=== PATIENT | male | born 1955 | race Caucasian/White ===

== ENCOUNTER 2021-11-26 18:44 | Inpatient (IN) | payer MEDICARE, OTHER ==
[2021-11-26] MEDS ORDERED: ASPIRIN 325 MG TAB PO STA (19:41)
[2021-11-26] MEDS ORDERED: SODIUM CHLORIDE 0.9% 1,000 ML IV ONE (19:41)
[2021-11-26] MEDS ORDERED: ATORVASTATIN 80 MG TAB PO STA (19:41)
[2021-11-26] MEDS ORDERED: HEPARIN SODIUM 1,000 UN/ML (10ML VL) IV ONE (19:42)
[2021-11-26] MEDS ORDERED: NALOXONE 0.4 MG/ML 1 ML VIAL IV PRN (19:42)
--- NOTE | 2021-11-26 19:46 | ED ---
General Adult HPI - General Chief complaint: Chest Pain Stated complaint: Chest pain Time Seen by Provider: 11/26/21 19:31 Source: patient, RN notes reviewed, old records reviewed Mode of arrival: wheelchair Limitations: no limitations - History of Present Illness Initial comments: 65-year-old male history of diabetes presenting for evaluation of intermittent chest pain over the past 24 hours. Patient has no prior history of coronary artery disease. He has had diaphoresis. No significant vomiting. No abdominal pain. Pain is substernal. - Related Data Allergies Allergy/AdvReac Type Severity Reaction Status Date / Time No Known Allergies Allergy Verified 11/26/21 19:28 Review of Systems ROS Statement: Those systems with pertinent positive or pertinent negative responses have been documented in the HPI. ROS Other: All systems not noted in ROS Statement are negative. Past Medical History Past Medical History: Diabetes Mellitus, Hyperlipidemia, Hypertension History of Any Multi-Drug Resistant Organisms: None Reported Additional Past Surgical History / Comment(s): kidney stone surgery Past Psychological History: No Psychological Hx Reported Smoking Status: Former smoker Past Alcohol Use History: None Reported Past Drug Use History: None Reported General Exam Limitations: no limitations General appearance: alert, in no apparent distress Head exam: Present: atraumatic, normocephalic Eye exam: Present: normal appearance, PERRL ENT exam: Present: normal exam Neck exam: Present: normal inspection. Absent: tenderness, meningismus Respiratory exam: Present: normal lung sounds bilaterally. Absent: respiratory distress, wheezes Cardiovascular Exam: Present: regular rate, normal rhythm GI/Abdominal exam: Present: soft. Absent: distended, tenderness, guarding Extremities exam: Present: pedal edema Neurological exam: Present: alert, oriented X3, CN II-XII intact. Absent: motor sensory deficit Psychiatric exam: Present: normal affect, normal mood Skin exam: Present: warm, diaphoretic Course Vital Signs 11/26/21 19:23 Temperature 98 F Pulse Rate 104 H Respiratory 18 Rate Blood Pressure 86/58 O2 Sat by Pulse 95 Oximetry EKG Findings - EKG Comments: EKG Findings:: EKG obtained at 193, sinus tachycardia, ST segment elevation in the inferior leads with reciprocal change, rate of 104, LA interval 152, QRS duration 108, QTC 420 Medical Decision Making - Medical Decision Making 65-year-old male presenting with intermittent chest pain over the past 24 hours. EKG obtained at 1935 [address] [place] with ST segment elevation in II, III, and F aVF with reciprocal change. lab asst is immediately activated and I did discuss case with Dr. Machado. He is given aspirin, heparin, Lipitor and 1 L of IV fluids. Laboratory testing and x-ray are pending. He will be taken urgently to the [facility]. Critical Care Time Critical Care Time: Yes Total Critical Care Time: 35 Disposition Clinical Impression: ST elevation myocardial infarction (STEMI) Disposition: ADMITTED IP TO THIS HOSP Condition: Serious Is patient prescribed a controlled substance at d/c from ED?: No Referrals: Nonstaff,Physician [Primary Care Provider] - 1-2 days Time of Disposition: 19:43
[2021-11-26 19:58] LABS: Basophils % (A) 1 %; Eosinophils # (A) 0.1 k/uL (0-0.7); Eosinophils % (A) 2 %; HGB 15.7 gm/dL (13.0-17.5); Lymphocytes # (A) 1.6 k/uL (1.0-4.8); Lymphocytes % (A) 22 %; MCH 28.8 pg (25.0-35.0); MCHC 32.1 g/dL (31.0-37.0); MCV 89.8 fL (80.0-100.0); Mean Platelet Volume 8.8; Monocytes # (A) 0.7 k/uL (0-1.0); Monocytes % (A) 10 %; Neutrophils # (A) 4.6 k/uL (1.3-7.7); Neutrophils % (A) 62 %; Platelet Count 270 k/uL (150-450); RBC 5.45 m/uL (4.30-5.90); WBC 7.3 k/uL (3.8-10.6)
[2021-11-26] MEDS: NOREPINEPHRINE 4 MG in SODIUM CHLORIDE 0.9% 250 ML IV SCH (19:58)
[2021-11-26 20:07] LABS: Albumin 4.3 g/dL (3.5-5.0); Calcium 9.1 mg/dL (8.4-10.2); Magnesium 2.1 mg/dL (1.6-2.3); Potassium 3.6 mmol/L (3.5-5.1); Total Bilirubin 0.8 mg/dL (0.2-1.3); Total Protein 6.9 g/dL (6.3-8.2)
--- NOTE | 2021-11-26 20:07 | XR ---
EXAMINATION TYPE: XR chest 1V portable DATE OF EXAM: 11/26/2021 COMPARISON: NONE HISTORY: Pain TECHNIQUE: Single view FINDINGS: There is no heart failure nor confluent pneumonic infiltrate. Costophrenic angles are clear . There are chest leads. IMPRESSION: No active cardiopulmonary disease.
[2021-11-26] MEDS ORDERED: VERAPAMIL 2.5 MG/ML 2 ML AMP ONE (20:10)
[2021-11-26] MEDS ORDERED: IV FLUID CONTINUATION 700 ML IV ONE (20:10)
--- NOTE | 2021-11-26 20:13 | P.CRDCN ---
History of Present Illness History of present illness: HISTORY OF PRESENTING ILLNESS Patient is a pleasant 65-year-old male with a history of diabetes mellitus type 2, hypertension, hyperlipidemia who presents secondary to off and on chest pain with some nausea over lasts 24 hours. He had first thought this was related to heartburn and took some Tums without any significant change and therefore eventually came to emergency department. He does admit to some diaphoresis however no significant shortness breath. Chest pain is substernal. He has never had any cardiac history in the past. EKG shows sinus rhythm with ST elevation in the inferior leads with reciprocal changes. Blood work shows hemoglobin 15.7, creatinine 1.8, troponin pending. Patient was noted to be hypotensive 86/58 on presentation however improved to 106/70 after IV fluids. REVIEW OF SYSTEMS At the time of my exam: CONSTITUTIONAL: Denies fever or chills. CARDIOVASCULAR: +chest pain, no shortness of breath, orthopnea, PND or palpitations. RESPIRATORY: Denies cough. GASTROINTESTINAL: Denies abdominal pain, diarrhea, constipation, +nausea, no vomiting. MUSCULOSKELETAL: Denies myalgias. NEUROLOGIC: Denies numbness, tingling or weakness. ENDOCRINE: Denies fatigue, weight change, polydipsia or polyurina. GENITOURINARY: Denies burning, hematuria or urgency with micturation. HEMATOLOGIC: Denies history of anemia or bleeding. PHYSICAL EXAMINATION Vital signs reviewed. CONSTITUTIONAL: Obese, mild distress. HEENT: Head is normocephalic. Pupils are equal, round. Sclerae anicteric. Mucous membranes of the mouth are moist. No JVD. No carotid bruit. CHEST EXAMINATION: Lungs are clear to auscultation. No chest wall tenderness is noted on palpation or with deep breathing. HEART EXAMINATION: Regular rate and rhythm. S1, S2 heard. No murmurs, gallops or rub. ABDOMEN: Soft, nontender. Positive bowel sounds. EXTREMITIES: 2+ peripheral pulses, no lower extremity edema and no calf tenderness. NEUROLOGIC EXAMINATION: Patient is awake, alert and oriented x3. ASSESSMENT 1. Inferior STEMI 2. Diabetes mellitus type 2 3. Hypertension 4. Hyperlipidemia 5. Chronic kidney disease 6. Hypotension, cardiogenic shock improved with IV fluids PLAN Discussed recommendations for emergency heart catheterization and patient is agreeable. Aspirin, heparin, hold beta wenceslao given hypotension, IV fluid hydration. Check 2-D echo. Further recommendations to follow. Past Medical History Past Medical History: Diabetes Mellitus, Hyperlipidemia, Hypertension History of Any Multi-Drug Resistant Organisms: None Reported Additional Past Surgical History / Comment(s): kidney stone surgery Past Psychological History: No Psychological Hx Reported Smoking Status: Former smoker Past Alcohol Use History: None Reported Past Drug Use History: None Reported Medications and Allergies Home Medications Medication Instructions Recorded Confirmed Type Aspirin EC [Ecotrin Low Dose] 81 mg PO DAILY 11/26/21 11/26/21 History Atorvastatin [Lipitor] 40 mg PO HS 11/26/21 11/26/21 History Dulaglutide [Trulicity] 3 mg SQ MO 11/26/21 11/26/21 History Empagliflozin [Jardiance] 10 mg PO DAILY 11/26/21 11/26/21 History Fenofibrate,Micronized 200 mg PO HS 11/26/21 11/26/21 History Insulin Lispro Protamin/Lispro 30 units SQ AC-BRKFST 11/26/21 11/26/21 History [humaLOG Mix 50-50 Kwikpen] Insulin Lispro Protamin/Lispro 54 units SQ AC-SUPPER 11/26/21 11/26/21 History [humaLOG Mix 50-50 Kwikpen] Losartan-Hctz 50-12.5 mg [Hyzaar 1 tab PO DAILY 11/26/21 11/26/21 History 50-12.5] Pioglitazone [Actos] 30 mg PO DAILY 11/26/21 11/26/21 History metFORMIN HCL ER [Glucophage XR] 500 mg PO BID 11/26/21 11/26/21 History Allergies Allergy/AdvReac Type Severity Reaction Status Date / Time No Known Allergies Allergy Verified 11/26/21 20:03 Physical Exam Vitals: Vital Signs Temp Pulse Resp BP Pulse Ox 11/26/21 20:03 98.0 F 101 H 20 106/70 95 11/26/21 19:50 101 H 20 86/58 93 L 11/26/21 19:23 98 F 104 H 18 86/58 95 Intake and Output 11/26/21 11/26/21 11/26/21 06:59 14:59 22:59 Other: Weight 140.614 kg Results 11/26/21 19:45 11/26/21 19:45 Cardiac Enzymes 11/26/21 Range/Units 19:45 AST 32 (17-59) U/L CBC 11/26/21 Range/Units 19:45 WBC 7.3 (3.8-10.6) k/uL RBC 5.45 (4.30-5.90) m/uL Hgb 15.7 (13.0-17.5) gm/dL Hct 49.0 (39.0-53.0) % Plt Count 270 (150-450) k/uL Comprehensive Metabolic Panel 11/26/21 Range/Units 19:45 Sodium 141 (137-145) mmol/L Potassium 3.6 (3.5-5.1) mmol/L Chloride 106 (98-107) mmol/L Carbon Dioxide 27 (22-30) mmol/L BUN 26 H (9-20) mg/dL Creatinine 1.80 H (0.66-1.25) mg/dL Glucose 111 H (74-99) mg/dL Calcium 9.1 (8.4-10.2) mg/dL AST 32 (17-59) U/L ALT 29 (4-49) U/L Alkaline Phosphatase 57 (38-126) U/L Total Protein 6.9 (6.3-8.2) g/dL Albumin 4.3 (3.5-5.0) g/dL Current Medications Generic Name Dose Route Start Last Admin Trade Name Freq PRN Reason Stop Dose Admin Sodium Chloride 1,000 mls @ 999 mls/hr 11/26/21 19:41 11/26/21 19:46 Saline 0.9% IV 11/26/21 20:41 999 mls/hr .Q1H1M ONE Administration Norepinephrine Bitartrate 4 mg 254 mls @ 26.787 mls/hr 11/26/21 20:00 11/26/21 19:58 / Sodium Chloride IV 0.05 mcg/kg/min .Q9H29M SHIRLEY 26.787 mls/hr Administration Protocol 0.05 MCG/KG/MIN Naloxone HCl 0.2 mg 11/26/21 19:42 Naloxone 0.4 Mg/Ml 1 Ml Vial IV Q2M PRN Opioid Reversal Intake and Output 11/26/21 11/26/21 11/26/21 06:59 14:59 22:59 Other: Weight 140.614 kg Patient Weight 11/27/21 06:59 Weight 140.614 kg 11/26/21 19:45 11/26/21 19:45
[2021-11-26 20:15] LABS: Prothrombin Time 10.8 sec (9.0-12.0)
[2021-11-26] MEDS ORDERED: TICAGRELOR 90 MG TAB ONE (20:17)
[2021-11-26] MEDS ORDERED: LIDOCAINE 1% PF 10 MG/ML (5 ML AMP) SQ ONE (20:19)
[2021-11-26] MEDS ORDERED: VERAPAMIL SYRINGE (5 MG/10 ML) INTRAARTER ONE (20:21)
[2021-11-26] MEDS ORDERED: MIDAZOLAM 2 MG/2 ML VIAL IV ONE (20:23)
[2021-11-26] MEDS ORDERED: HEPARIN SODIUM 1,000 UN/ML (10ML VL) ONE (20:26)
[2021-11-26] MEDS ORDERED: TICAGRELOR 90 MG TAB PO ONE (20:31)
[2021-11-26] MEDS ORDERED: IOPAMIDOL-370 125ML BTL INJ ONE (20:52)
[2021-11-26 21:16] LABS: Glucose,Whole Blood 120 mg/dL (75-99)
--- NOTE | 2021-11-26 21:17 | P.PRCINT ---
Percutaneous Coronary Int. - Percutaneous Coronary Intervention Percutaneous Coronary Intervention: PROCEDURES PERFORMED: Bilateral coronary angiography, PCI proximal RCA with 3.5 x 18 mm Xience VICENTE, postdilated proximal portion with a 4.5 x 12 NC balloon INDICATION: Inferior STEMI, cardiogenic shock, diabetes mellitus type 2, chronic kidney disease HPI: Patient is pleasant 65-year-old male with history of hypertension, diabetes mellitus type 2 who presented for chest pain over the last 24 hours as found to have inferior ST elevation. He was noted to be hypotensive with blood pressures in the 80s over 50s and given IV fluid hydration and was placed on vasopressors. CONSENT:I have discussed the risks, benefits and alternative therapies for the above-mentioned procedure and for both sedation/analgesia as well as necessary blood product administration, if indicated, as they pertain to this patient. The patient has indicated understanding and acceptance of the risks and procedures discussed. PROCEDURE: After the risks, benefits and alternatives of the above mentioned procedure explained in detail with the patient, informed consent was obtained. Patient was taken to the catheterization lab and prepped and draped in usual fashion. 1% lidocaine was used to anesthetize the right radial artery. A 6- Syriac sheath was placed in the right radial artery using modified Seldinger technique. Right coronary angiography was performed with a 6-Syriac FR4 catheter. The decision was made to perform PCI of the RCA. A 0.014 BMW wire was advanced into the distal RCA. The lesion was predilated with a 2.5 x 12 mm balloon. Next a 3.5 x 18 mm Xience VICENTE was placed in the proximal RCA. The proximal portion of the stent was postdilated with a 4.5 noncompliant balloon given discrepancy in size of artery narrowing from 4.5-3.5 vessel. There was a more distal 60-70% RCA lesion however given contrast threshold and excellent flow no intervention of this lesion was performed at this time. The wire was pulled and final angiograms were performed. Preintervention there was NEHEMIAS 0 flow and 100% stenosis, postintervention there was NEHEMIAS 3 flow and 0% stenosis. Left coronary angiography was performed with a 5-Syriac JL 3.5 catheter and right coronary angiography was performed with a 5-Syriac JR5 catheter in various views. The right radial sheath was removed and a TR band was placed with hemostasis achieved. The patient tolerated the procedure well. Patient was transported back to the post catheterization holding area in stable condition. Conscious Sedation: Patient was monitored under the direct supervision of vision of myself for conscious sedation using Versed and fentanyl for a total duration of 36 minutes HEMODYNAMICS: Aortic: 84/56 SELECTIVE CORONARY ARTERIOGRAPHY: LEFT MAIN: The left main is a large caliber vessel which bifurcates into the LAD and circumflex. There is no significant stenosis. LEFT ANTERIOR DESCENDING CORONARY ARTERY: LAD is a large caliber vessel which wraps around to the apex. There is diffuse proximal mid LAD 30-50% stenosis. There is a very high diagonal 1 branch which is small to moderate caliber with a 50% proximal stenosis. The mid LAD has diffuse 30-40% stenosis. Diagonal 2 has diffuse 30-40% stenosis. LEFT CIRCUMFLEX CORONARY ARTERY: Left circumflex is a moderate caliber vessel. There is mild disease of the proximal circumflex. OM1 is moderate caliber and has a proximal 80% stenosis. The distal circumflex is a small caliber vessel with diffuse 30-50% stenosis and gives rise to an AV branch. RIGHT CORONARY ARTERY: The right coronary artery is a large caliber vessel which gives off a PDA and PLV branch and is the dominant vessel. There is 100% proximal RCA stenosis and a mid 30% then a mid 60-70% RCA stenosis. FINAL IMPRESSION: 1. CAD as described above including 100% proximal RCA stenosis, mid RCA 60-70% stenosis, LAD 30-50% stenosis, OM1 80% stenosis. 2. S/p successful PCI proximal RCA with 3.5 x 18 mm Xience VICENTE, postdilated proximal portion with a 4.5 x 12 NC balloon PLAN: 1. Aggressive risk factor modification per most recent ACC/AHA guidelines. 2. Continue total antiplatelets with aspirin and Brillinta for 12 months. 3. Recommend staged PCI of OM1 and possible further assessment of LAD if creatinine remains stable. 4. IV fluids, supportive care, vasopressors as needed.
[2021-11-26] MEDS ORDERED: RX INFO: IV CONTRAST WAS GIVEN 1 EACH MISC MISCELLANE PRN (21:18)
[2021-11-26] MEDS ORDERED: NITROGLYCERIN SL TABS 0.4 MG TAB SUBLINGUAL PRN (22:00)
[2021-11-26] MEDS ORDERED: ATROPINE SULFATE 0.1 MG/ML 10ML SYRINGE IV PRN (22:00)
[2021-11-26] MEDS: SODIUM CHLORIDE 0.9% 1,000 ML in EMPTY BAG 1 BAG IV SCH (22:26)
[2021-11-27] MEDS ORDERED: MAG HYDROX/AL HYDROX/SIMETH 30 ML CUP PO PRN
[2021-11-27] MEDS: ZOLPIDEM 5 MG TAB PO PRN ×2 (01:19→20:01)
--- NOTE | 2021-11-27 01:42 | P.HPIM ---
History of Present Illness H&P Date: 11/26/21 Patient is a 65-year-old male with a PMH of type II DM, hypertension, hyperlipidemia, chronic kidney disease who had presented to the emergency room with complaints of chest discomfort, nausea, and diaphoresis. In the emergency room, EKG revealed ST elevations in the inferior leads. Code STEMI was activated and the patient was taken to the [facility] where a cardiac catheterization had revealed 100% proximal RCA stenosis, 60-70% mid RCA stenosis, 80% OM1 stenosis. A successful PCI to the proximal RCA was performed. The patient was seen postoperatively in the medical ICU. He reported feeling at his baseline at the time of interview. Denied expressing any additional chest discomfort or shortness of breath. Also denied any additional complaints. Laboratory evaluation from the emergency room was reviewed with creatinine 1.80 (previously 1.4 in 2015) with troponin 0.322. Review of systems: Pertinent positives and negatives as discussed in HPI, a complete review of systems was performed and all other systems are negative. Physical examination: General: non toxic, no distress, appears at stated age, morbidly obese Derm: no unusual rashes/lesions no unusual ecchymoses, warm, dry Head: atraumatic, normocephalic, symmetric Eyes: EOMI, no lid lag, anicteric sclera, pupils equal round reactive to light ENT: Nose and ears atraumatic, no thrush, no pharyngeal erythema Neck: No thyromegaly, no cervical lymphadenopathy, trachea midline, supple Mouth: no lip lesion, mucus membranes moist Cardiovascular: S1S2 reg, no murmur, positive posterior tibial pulse bilateral, no edema, capillary refill less than 2 seconds Lungs: CTA bilateral, no rhonchi, no rales , no accessory muscle use Abdominal: soft, nontender to palpation, no guarding, no appreciable organomegaly, normal bowel sounds Ext: no gross muscle atrophy, muscle strength 5 out of 5 in all 4 extremities grossly, no contractures, Neuro: CN II-XI grossly intact, light touch intact all 4 extremities, finger to nose within normal limits, Psych: Alert, oriented, appropriate affect Assessment/plan Inferior ST elevation IA status post PCI to proximal RCA -Management as per cardiology service -Patient currently on Aspirin, Lipitor, Brilinta ESEQUIEL on chronic kidney disease -Hold patient's diuretic and losartan in light of borderline BP Chronic conditions: Type II DM, hypertension, hyperlipidemia, chronic kidney di sease -Insulin sliding scale -Continue remaining home medications DVT prophylaxis -Heparin subq The patient is admitted with an anticipated greater than 2 midnight stay for evaluation of STEMI CODE STATUS: Full Code Discussed with: Patient Anticipated discharge date: 11/[address]: Home Past Medical History Past Medical History: Diabetes Mellitus, Hyperlipidemia, Hypertension History of Any Multi-Drug Resistant Organisms: None Reported Past Surgical History: Orthopedic Surgery, Tonsillectomy Additional Past Surgical History / Comment(s): kidney stone surgery x2, hemrrhoid surgery, right elbow surgery Past Anesthesia/Blood Transfusion Reactions: No Reported Reaction Past Psychological History: No Psychological Hx Reported Smoking Status: Former smoker Past Alcohol Use History: None Reported Past Drug Use History: None Reported - Past Family History Father Family Medical History: CVA/TIA, Dementia Additional Family Medical History / Comment(s): passed way at 63 Mother Family Medical History: Congestive Heart Failure (CHF) Additional Family Medical History / Comment(s): at 96 from covid and chf Medications and Allergies Home Medications Medication Instructions Recorded Confirmed Type Aspirin EC [Ecotrin Low Dose] 81 mg PO DAILY 11/26/21 11/26/21 History Atorvastatin [Lipitor] 40 mg PO HS 11/26/21 11/26/21 History Dulaglutide [Trulicity] 3 mg SQ MO 11/26/21 11/26/21 History Empagliflozin [Jardiance] 10 mg PO DAILY 11/26/21 11/26/21 History Fenofibrate,Micronized 200 mg PO HS 11/26/21 11/26/21 History Insulin Lispro Protamin/Lispro 30 units SQ AC-BRKFST 11/26/21 11/26/21 History [humaLOG Mix 50-50 Kwikpen] Insulin Lispro Protamin/Lispro 54 units SQ AC-SUPPER 11/26/21 11/26/21 History [humaLOG Mix 50-50 Kwikpen] Losartan-Hctz 50-12.5 mg [Hyzaar 1 tab PO DAILY 11/26/21 11/26/21 History 50-12.5] Pioglitazone [Actos] 30 mg PO DAILY 11/26/21 11/26/21 History metFORMIN HCL ER [Glucophage XR] 500 mg PO BID 11/26/21 11/26/21 History Allergies Allergy/AdvReac Type Severity Reaction Status Date / Time No Known Allergies Allergy Verified 11/26/21 20:03 Physical Exam Vitals: Vital Signs Temp Pulse Resp BP BP Pulse Ox 11/26/21 23:00 115 H 18 107/73 97 11/26/21 22:45 112 H 15 139/86 96 11/26/21 22:30 103 H 21 142/87 96 11/26/21 22:15 102 H 15 140/85 96 11/26/21 22:00 104 H 15 138/80 97 11/26/21 21:45 100 14 130/80 96 11/26/21 21:30 96 12 135/83 97 11/26/21 20:29 97.6 F 12 140/85 97 11/26/21 20:03 98.0 F 101 H 20 106/70 95 11/26/21 19:50 101 H 20 86/58 93 L 11/26/21 19:23 98 F 104 H 18 86/58 95 Intake and Output 11/26/21 11/26/21 11/27/21 14:59 22:59 06:59 Intake Total 668.306 580 Output Total 225 Balance 668.306 355 Intake: IV 600 100 Sodium Chloride 0.9% 1, 200 100 000 ml In Empty Bag 1 bag @ 1 ML/KG/HR 140.614 mls /hr IV .Q7H7M SHIRLEY Rx#: [id number] Intake, IV Titration 68.306 Amount Norepinephrine 4 mg In 68.306 Sodium Chloride 0.9% 250 ml @ 0.05 MCG/KG/MIN 26. 787 mls/hr IV .Q9H29M SHIRLEY Rx#:[id number] Oral 480 Output: Urine 225 Other: # Voids 0 1 Weight 144 kg Results CBC & Chem 7: 11/26/21 19:45 11/26/21 19:45 Labs: Abnormal Lab Results - Last 24 Hours (Table) 11/26/21 11/26/21 11/26/21 Range/Units 19:45 19:45 21:14 BUN 26 H (9-20) mg/dL Creatinine 1.80 H (0.66-1.25) mg/dL Glucose 111 H (74-99) mg/dL POC Glucose (mg/dL) 120 H (75-99) mg/dL Troponin I 0.322 H* (0.000-0.034) ng/mL Thrombosis Risk Factor Assmnt - Choose All That Apply Any of the Below Risk Factors Present?: Yes Each Factor Represents 1 point: Acute IA, Obesity (BMI >25) Each Risk Factor Represents 2 Points: Age 61-74 years Thrombosis Risk Factor Assessment Total Risk Factor Score: 4 Thrombosis Risk Factor Assessment Level: Moderate Risk
[2021-11-27] MEDS: SODIUM CHLORIDE 0.9% 1,000 ML in EMPTY BAG 1 BAG IV SCH ×2 (06:42→12:48)
[2021-11-27] MEDS: NOREPINEPHRINE 4 MG in SODIUM CHLORIDE 0.9% 250 ML IV SCH ×2 (09:36→12:57)
[2021-11-27] MEDS: INSULIN ASPART (NovoLOG) 100 UNIT/ML VIAL SQ SCH ×4 (09:36→20:30)
[2021-11-27] MEDS: TICAGRELOR 90 MG TAB PO SCH ×2 (09:41→20:00)
[2021-11-27] MEDS: HEPARIN SODIUM,PORCINE/PF 5,000 UNIT/0.5 ML SYRINGE SQ SCH ×3 (09:41→23:09)
[2021-11-27] MEDS: ASPIRIN 81 MG PO SCH (09:41)
[2021-11-27 10:50] VITALS: BMI 45.4
--- NOTE | 2021-11-27 14:05 | CDI ---
Documentation Clarification Form Date: 11/27/2021 01:58:20 PM From: Yvonne De La Paz CCS, CCDS Admit Date: 11/26/2021 07:42:00 PM Patient Name: Rio Majano Visit Number: [id number] Discharge Date: ATTENTION: The Clinical Documentation Specialists (CDI) and [facility] Coding Staff appreciate your assistance in clarifying documentation. Please respond to the clarification below the line at the bottom and electronically sign. The CDI & [facility] Coding staff will review the response and follow-up if needed. Please note: Queries are made part of the Legal Health Record. If you have any questions, please contact the author of this message via ITS. Dr. Armida Fatima: Chronic Kidney Disease without the stage in the 11/26 Cardiology Consult and the 11/26 History & Physical. Nephrology is not consulted. Additional clarification regarding the stage of CKD is requested. History/Risk Factors per the 11/26 H/P: DM II, Hypertension, Hyperlipidemia, Kidney stone with surgery, Former smoker. Clinical Indicators: Presented to the ED on 11/26 with Chest Pain. Admit with an Inferior STEMI To Endocrinology Nurse for PTCA with VICENTE stent and Left Heart Catheterization LABS: 11/26 BUN 26, Creatinine 1.80, GFR 39 Historical GFR: 07/24/2014: 52 Treatment: Heart Catheterization and PTCA with VICENTE stent, Telemetry, Castro catheter, Blood glucose monitoring, O2 2Lnc, po Aspirin, po Lipitor, IV Na Cl 1,000 mls @ 999 mls/hr q1H, IV heparin 4,000 units x1 Home meds: Fenofibrate, Lipitor, Insulin sq, Trulicity, Ecotrin, Jardiance, Glucophage, Actos, Hyzaar Please clarify the Stage of the CKD, if known: [ x ] CKD Stage 3 (GFR 30-59) [ ] CKD Stage 3a (GFR 45-59) [ ] CKD Stage 3b (GFR 30-44) [ ] Other, please specify [ ] Unable to determine (Template Last revised: August 2020) CKD Stage 3 (GFR 30-59) [facility]
--- NOTE | 2021-11-27 14:12 | P.PN ---
Subjective Progress Note Date: 11/27/21 Principal diagnosis: STEMI Patient was seen and examined. Underwent cardiac cath yesterday, showed 100% proximal RCA stenosis, mid RCA 60-70% stenosis, LAD 30-50% stenosis, OM1 80% stenosis. He is status post PCI proximal RCA. Patient reports no current chest pain but does complain of shortness of breath with exertion. Objective - Vital Signs Vital signs: Vital Signs Temp 97.9 F 11/27/21 09:00 Pulse 106 H 11/27/21 12:00 Resp 13 11/27/21 13:00 BP 140/87 11/27/21 13:00 Pulse Ox 96 11/27/21 13:00 Intake & Output 11/26/21 11/27/21 11/27/21 18:59 06:59 18:59 Intake Total 2428.306 1100 Output Total 775 350 Balance 1653.306 750 Weight 143.7 kg 143.7 kg Intake: IV 1400 Sodium Chloride 0.9% 1, 1000 000 ml In Empty Bag 1 bag @ 1 ML/KG/HR 140.614 mls /hr IV .Q7H7M [facility] Rx#: [id number] Intake, IV Titration 68.306 600 Amount Norepinephrine 4 mg In 68.306 Sodium Chloride 0.9% 250 ml @ 0.05 MCG/KG/MIN 26. 787 mls/hr IV .Q9H29M [facility] Rx#:[id number] Sodium Chloride 0.9% 1, 600 000 ml In Empty Bag 1 bag @ 1 ML/KG/HR 140.614 mls /hr IV .Q7H7M [facility] Rx#: [id number] Oral 960 500 Output: Urine 775 350 Other: Voiding Method Toilet Urinal # Voids 1 - Exam General: [non toxic], [no distress], [appears at stated age] Derm: [warm], [dry] Head: [atraumatic], [normocephalic], [symmetric] Eyes: [EOMI], [no lid lag], [anicteric sclera] Mouth: [no lip lesion], [mucus membranes moist] Cardiovascular: [S1S2 reg], [no murmur], [positive DP pulse bilateral], Lungs: [CTA bilateral], [no rhonchi, no rales] , [no accessory muscle use] Ext: [no gross muscle atrophy], [no edema], [no contractures] Neuro: [no focal neuro deficits] Psych: [Alert], [oriented], [appropriate affect] - Labs CBC & Chem 7: 11/26/21 19:45 11/26/21 19:45 Labs: Abnormal Lab Results - Last 24 Hours (Table) 11/26/21 11/26/21 11/26/21 Range/Units 19:45 19:45 21:14 BUN 26 H (9-20) mg/dL Creatinine 1.80 H (0.66-1.25) mg/dL Glucose 111 H (74-99) mg/dL POC Glucose (mg/dL) 120 H (75-99) mg/dL Troponin I 0.322 H* (0.000-0.034) ng/mL Assessment and Plan Assessment: Inferior ST elevation [place] status post PCI to proximal RCA -Management as per cardiology service -Patient currently on Aspirin, Lipitor, Brilinta -Patient will benefit from beta wenceslao when OK with Cardiology -Recommend staged PCI of OM1 and possible further assessment of LAD if creatinine remains stable. ESEQUIEL on chronic kidney disease -Hold patient's diuretic and losartan in light of borderline BP -DC IVF and encourage hydration by mouth -Repeat BMP tomorrow morning. Chronic conditions: Type II DM, hypertension, hyperlipidemia, chronic kidney disease -Insulin sliding scale DVT prophylaxis -Heparin subq The patient is admitted with an anticipated greater than 2 midnight stay for evaluation of STEMI CODE STATUS: Full Code Discussed with: Patient Anticipated discharge date: 11/[address]: Home
[2021-11-27 16:12] LABS: Glucose,Whole Blood 237 mg/dL (75-99)
[2021-11-27 16:15] LABS: HCT 49.9 % (39.0-53.0); HGB 15.4 gm/dL (13.0-17.5); MCH 28.4 pg (25.0-35.0); MCHC 30.8 g/dL (31.0-37.0); MCV 92.2 fL (80.0-100.0); Mean Platelet Volume 8.6; Platelet Count 209 k/uL (150-450); RBC 5.41 m/uL (4.30-5.90); RDW 14.6 % (11.5-15.5)
[2021-11-27 16:35] LABS: Albumin 4.4 g/dL (3.5-5.0); Calcium 8.7 mg/dL (8.4-10.2); Potassium 3.8 mmol/L (3.5-5.1); Total Protein 7.2 g/dL (6.3-8.2)
--- NOTE | 2021-11-27 17:00 | P.PN ---
Subjective Patient is resting in a chair No chest discomfort He was a bit short of breath but he looks comfortable at this time no dizziness no lightheadedness No arrhythmias Heart rate and blood pressure normal On examination pulse rate is in the 80s to 90s blood pressure 140/87 mmHg Lungs sounds clear no rhonchi no crackles Heart sounds no murmurs no gallops Hemoglobin 15.4 Sotalol potassium normal (21 creatinine 1.3 which is improved since yesterday Impression inferior wall PA ST elevation Status post stenting to the RCA He also has OM disease and a staged procedure to be performed by Dr. Machado future Plan start metoprolol 25 mg twice daily Continue dual antiplatelet therapy and statins CMP and CBC today We will restart lisinopril tomorrow 2-D echo and Doppler study Objective - Vital Signs Vital signs: Vital Signs Temp 97.9 F 11/27/21 09:00 Pulse 87 11/27/21 16:00 Resp 18 11/27/21 16:00 BP 151/75 11/27/21 16:00 Pulse Ox 96 11/27/21 16:00 Intake & Output 11/26/21 11/27/21 11/27/21 18:59 06:59 18:59 Intake Total 2428.306 1300 Output Total 775 550 Balance 1653.306 750 Weight 143.7 kg 143.7 kg Intake: IV 1400 Sodium Chloride 0.9% 1, 1000 000 ml In Empty Bag 1 bag @ 1 ML/KG/HR 140.614 mls /hr IV .Q7H7M [facility] Rx#: [id number] Intake, IV Titration 68.306 600 Amount Norepinephrine 4 mg In 68.306 Sodium Chloride 0.9% 250 ml @ 0.05 MCG/KG/MIN 26. 787 mls/hr IV .Q9H29M [facility] Rx#:[id number] Sodium Chloride 0.9% 1, 600 000 ml In Empty Bag 1 bag @ 1 ML/KG/HR 140.614 mls /hr IV .Q7H7M [facility] Rx#: [id number] Oral 960 700 Output: Urine 775 550 Other: Voiding Method Toilet Urinal # Voids 1 - Labs CBC & Chem 7: 11/27/21 15:58 11/27/21 15:58 Labs: Abnormal Lab Results - Last 24 Hours (Table) 11/26/21 11/26/21 11/26/21 Range/Units 19:45 19:45 21:14 MCHC (31.0-37.0) g/dL BUN 26 H (9-20) mg/dL Creatinine 1.80 H (0.66-1.25) mg/dL Glucose 111 H (74-99) mg/dL POC Glucose (mg/dL) 120 H (75-99) mg/dL AST (17-59) U/L Troponin I 0.322 H* (0.000-0.034) ng/mL 11/27/21 11/27/21 11/27/21 Range/Units 15:58 15:58 16:11 MCHC 30.8 L (31.0-37.0) g/dL BUN 21 H (9-20) mg/dL Creatinine 1.31 H (0.66-1.25) mg/dL Glucose 219 H (74-99) mg/dL POC Glucose (mg/dL) 237 H (75-99) mg/dL AST 176 H (17-59) U/L Troponin I (0.000-0.034) ng/mL
[2021-11-27] MEDS: ATORVASTATIN 80 MG TAB PO SCH (20:00)
[2021-11-27] MEDS: METOPROLOL TARTRATE 25 MG TAB PO SCH (20:00)
[2021-11-27] MEDS ORDERED: DOCUSATE 100 MG CAP PO STA (20:05)
[2021-11-27] MEDS: ACETAMINOPHEN TAB 325 MG TAB PO PRN (21:00)
[2021-11-28 05:30] LABS: Calcium 8.2 mg/dL (8.4-10.2); Potassium 4.1 mmol/L (3.5-5.1)
[2021-11-28] MEDS: INSULIN ASPART (NovoLOG) 100 UNIT/ML VIAL SQ SCH ×4 (06:33→20:37)
[2021-11-28] MEDS: METOPROLOL TARTRATE 25 MG TAB PO SCH ×2 (07:56→20:16)
[2021-11-28] MEDS: TICAGRELOR 90 MG TAB PO SCH ×2 (07:56→20:16)
[2021-11-28] MEDS: ASPIRIN 81 MG PO SCH (07:56)
[2021-11-28] MEDS: HEPARIN SODIUM,PORCINE/PF 5,000 UNIT/0.5 ML SYRINGE SQ SCH ×2 (07:56→16:53)
--- NOTE | 2021-11-28 12:48 | P.PN ---
Subjective Progress Note Date: 11/28/21 Principal diagnosis: STEMI Patient was seen and examined. Underwent cardiac cath 11/27, showed 100% proximal RCA stenosis, mid RCA 60-70% stenosis, LAD 30-50% stenosis, OM1 80% stenosis. He is status post PCI proximal RCA. Patient denies any chest pain, SOB, palpitations, lightheadedness. at bedside. Objective - Vital Signs Vital signs: Vital Signs Temp 98.1 F 11/28/21 12:00 Pulse 81 11/28/21 12:00 Resp 20 11/28/21 12:00 BP 104/70 11/28/21 12:00 Pulse Ox 97 11/28/21 12:00 Intake & Output 11/27/21 11/28/21 11/28/21 18:59 06:59 18:59 Intake Total 1300 1400 200 Output Total 750 750 0 Balance 550 650 200 Weight 143.7 kg Intake: Intake, IV Titration 600 Amount Sodium Chloride 0.9% 1, 600 000 ml In Empty Bag 1 bag @ 1 ML/KG/HR 140.614 mls /hr IV .Q7H7M [facility] Rx#: [id number] Oral 700 1400 200 Output: Urine 750 750 0 Other: Voiding Method Toilet Toilet Toilet Urinal Urinal Urinal # Voids 1 0 # Bowel Movements 1 - Exam General: [non toxic], [no distress], [appears at stated age] Derm: [warm], [dry] Head: [atraumatic], [normocephalic], [symmetric] Eyes: [EOMI], [no lid lag], [anicteric sclera] Mouth: [no lip lesion], [mucus membranes moist] Cardiovascular: [S1S2 reg], [no murmur], [positive DP pulse bilateral], Lungs: [CTA bilateral], [no rhonchi, no rales] , [no accessory muscle use] Ext: [no gross muscle atrophy], [no edema], [no contractures] Neuro: [no focal neuro deficits] Psych: [Alert], [oriented], [appropriate affect] - Labs CBC & Chem 7: 11/27/21 15:58 11/28/21 04:25 Labs: Abnormal Lab Results - Last 24 Hours (Table) 11/27/21 11/27/21 11/27/21 Range/Units 15:58 15:58 16:11 MCHC 30.8 L (31.0-37.0) g/dL Sodium (137-145) mmol/L BUN 21 H (9-20) mg/dL Creatinine 1.31 H (0.66-1.25) mg/dL Glucose 219 H (74-99) mg/dL POC Glucose (mg/dL) 237 H (75-99) mg/dL Calcium (8.4-10.2) mg/dL AST 176 H (17-59) U/L 11/28/21 Range/Units 04:25 MCHC (31.0-37.0) g/dL Sodium 135 L (137-145) mmol/L BUN 24 H (9-20) mg/dL Creatinine 1.46 H (0.66-1.25) mg/dL Glucose 148 H (74-99) mg/dL POC Glucose (mg/dL) (75-99) mg/dL Calcium 8.2 L (8.4-10.2) mg/dL AST (17-59) U/L Assessment and Plan Assessment: Inferior ST elevation [place] status post PCI to proximal RCA -Management as per cardiology service -Patient currently on Aspirin, Lipitor, Brilinta -Started on Metoprolol 25 mg PO BID. -Plans for IGNACIO inhibitor tomorrow. Patient reports allergy to Lisinopril, states he was able to tolerate Losartan in the past. -Recommend staged PCI of OM1 and possible further assessment of LAD, likely to be done in the outpatient setting. ESEQUIEL on chronic kidney disease -Hold patient's diuretic and losartan in light of borderline BP -Encourage hydration by mouth -Repeat BMP tomorrow morning. Chronic conditions: Type II DM, hypertension, hyperlipidemia, chronic kidney disease -Insulin sliding scale DVT prophylaxis -Heparin subq The patient is admitted with an anticipated greater than 2 midnight stay for evaluation of STEMI CODE STATUS: Full Code Discussed with: Patient Anticipated discharge date: 11/[address]: Home All questions answered. Cardiology would like to observe for one more day. Anticipate DC home tomorrow.
--- NOTE | 2021-11-28 18:55 | P.PN ---
Subjective Patient is doing better than yesterday No dizziness lightheadedness no shortness of breath ablating to the bathroom No chest discomfort On examination his blood pressure is 107 16 mmHg pulse rate in the 80s No JVD Clear lungs Normal heart sounds Labs are reviewed sodium 135 potassium 4.1 BUN 24 and creatinine 1.46 which is better than admission On admission creatinine was 1.8 Impression Inferior wall [place] ST elevation Status post stenting to the proximal RCA Nonobstructive disease in the LAD and diagonal vessel, multiple lesions Moderate caliber OM1 with a proximal 80% stenosis Distal circumflex small caliber with diffuse revealed 50% stenosis I discussed this with Dr. Machado The OM1 lesion is significant enough and merits percutaneous intervention However seems to be is smooth occlusion, not infarct-related Discontinue performed electively once his renal function improves further and liver functions are normal, preferably as an outpatient. Weeks later At this time I will see start him on beta blockers and maximize Subsequently he was started him on Tylor inhibitors watch his renal function Continue dual antiplatelet therapy and statins Objective - Vital Signs Vital signs: Vital Signs Temp 98.1 F 11/28/21 16:00 Pulse 84 11/28/21 16:00 Resp 20 11/28/21 16:00 BP 107/69 11/28/21 16:00 Pulse Ox 99 11/28/21 16:00 Intake & Output 11/27/21 11/28/21 11/28/21 18:59 06:59 18:59 Intake Total 1300 1400 200 Output Total 750 750 0 Balance 550 650 200 Weight 143.7 kg Intake: Intake, IV Titration 600 Amount Sodium Chloride 0.9% 1, 600 000 ml In Empty Bag 1 bag @ 1 ML/KG/HR 140.614 mls /hr IV .Q7H7M [facility] Rx#: [id number] Oral 700 1400 200 Output: Urine 750 750 0 Other: Voiding Method Toilet Toilet Toilet Urinal Urinal Urinal # Voids 1 0 # Bowel Movements 1 - Labs CBC & Chem 7: 11/27/21 15:58 11/28/21 04:25 Labs: Abnormal Lab Results - Last 24 Hours (Table) 11/28/21 Range/Units 04:25 Sodium 135 L (137-145) mmol/L BUN 24 H (9-20) mg/dL Creatinine 1.46 H (0.66-1.25) mg/dL Glucose 148 H (74-99) mg/dL Calcium 8.2 L (8.4-10.2) mg/dL
[2021-11-28] MEDS: ATORVASTATIN 80 MG TAB PO SCH (20:15)
[2021-11-28] MEDS: ACETAMINOPHEN TAB 325 MG TAB PO PRN (20:16)
[2021-11-28] MEDS: ZOLPIDEM 5 MG TAB PO PRN (20:16)
[2021-11-29] MEDS: HEPARIN SODIUM,PORCINE/PF 5,000 UNIT/0.5 ML SYRINGE SQ SCH ×2 (00:22→08:33)
[2021-11-29] MEDS: ACETAMINOPHEN TAB 325 MG TAB PO PRN (05:10)
[2021-11-29 06:45] LABS: Glucose,Whole Blood 185 mg/dL (75-99)
[2021-11-29] MEDS: INSULIN ASPART (NovoLOG) 100 UNIT/ML VIAL SQ SCH ×2 (06:52→12:18)
[2021-11-29] MEDS: ASPIRIN 81 MG PO SCH (08:33)
[2021-11-29] MEDS: METOPROLOL TARTRATE 25 MG TAB PO SCH (08:33)
[2021-11-29] MEDS: TICAGRELOR 90 MG TAB PO SCH (08:33)
[2021-11-29 08:35] LABS: Calcium 8.5 mg/dL (8.4-10.2); Potassium 4.3 mmol/L (3.5-5.1)
[2021-11-29] MEDS ORDERED: INSULIN LISPRO PROTAMIN SQ SCH (11:00)
[2021-11-29] MEDS ORDERED: [UNRECOGNIZED DRUG - OTHER] SQ SCH (11:00)
[2021-11-29] MEDS ORDERED: LISPRO SQ SCH (11:00)
[2021-11-29] MEDS ORDERED: INSULIN DETEMIR (LEVEMIR) 100 UNIT/ML SYR SQ SCH (12:15)
[2021-11-29 12:24] VITALS: BP 103/63; PULSE 80; RESP 20; TEMP 97.8
--- NOTE | 2021-11-29 12:44 | P.DS ---
Providers Date of admission: 11/26/21 19:42 Expected date of discharge: 11/29/21 Attending physician: Armida Fatima MD Consults: 11/26/21 19:42 Consult Physician Stat Consulting Provider: Keny Machado Consult Reason/Comments: STEMI Do you want consulting provider notified?: Already Contacted 11/26/21 21:19 Consult Physician Routine Consulting Provider: [facility] Consult Reason/Comments: Post Interventional patient Do you want consulting provider notified?: Already Contacted Primary care physician: Physician Nonstaff Hospital Course: Patient is a 65-year-old male with a PMH of type II DM, hypertension, hyperlipidemia, chronic kidney disease who had presented to the emergency room with complaints of chest discomfort, nausea, and diaphoresis. In the emergency room, EKG revealed ST elevations in the inferior leads. Code STEMI was activated and the patient was taken to the [facility] where a cardiac catheterization had revealed 100% proximal RCA stenosis, 60-70% mid RCA stenosis, 80% OM1 stenosis. A successful PCI to the proximal RCA was performed. The patient was seen postoperatively in the medical ICU. He reported feeling at his baseline at the time of interview. Denied expressing any additional chest discomfort or shortness of breath. Also denied any additional complaints. Laboratory evaluation from the emergency room was reviewed with creatinine 1.80 (previously 1.4 in 2015) with troponin 0.322. Patient underwent cardiac cath which showed 100% proximal RCA stenosis, mid RCA 60-70% stenosis, LAD 30-50% stenosis, OM1 80% stenosis status post PCI proximal RCA. He was hydrated overnight due to his renal function. His creatinine improved from 1.46 to 1.22 at the time of discharge. Echocardiogram was obtained and pending at the time of this note. Patient was seen and examined on 11/29. He reported no chest pain. He did reports shortness of breath especially when waking up from sleep. The case was discussed with Dr. Machado who cleared the patient for discharge and a planned PCI in the outpatient setting. Patient was advised to continue ASA 81 mg PO QD, Brilinta 90 mg PO BID, Lipitor 80 mg PO QHS, Metoprolol 25 mg PO BID and Losartan 25 mg PO QD. Patient advised to follow up with PCP within 1-2 days and Cardiology within 1 week of discharge. He was advised to obtain a sleep study referral with his PCP. Patient and verbalized understanding of the plan. This complex discharge took about 45 minutes to complete. General: [non toxic], [no distress], [appears at stated age] Derm: [warm], [dry] Head: [atraumatic], [normocephalic], [symmetric] Eyes: [EOMI], [no lid lag], [anicteric sclera] Mouth: [no lip lesion], [mucus membranes moist] Cardiovascular: [S1S2 reg], [no murmur], [positive DP pulse bilateral], Lungs: [CTA bilateral], [no rhonchi, no rales] , [no accessory muscle use] Ext: [no gross muscle atrophy], [no edema], [no contractures] Neuro: [no focal neuro deficits] Psych: [Alert], [oriented], [appropriate affect] Discharge Diagnosis: #STEMI #ESEQUIEL on CKD #Diabetes mellitus #Hypertension #Dyslipidemia Pertinent Studies: EKG Chest XRay Echocardiogram Procedures: Cardiac cath Patient Condition at Discharge: Stable Plan - Discharge Summary New Discharge Prescriptions: New Atorvastatin [Lipitor] 80 mg PO HS #30 tab Nitroglycerin Sl Tabs [Nitrostat] 0.4 mg SUBLINGUAL Q5M PRN #14 tab PRN Reason: Chest Pain Ticagrelor [Brilinta] 90 mg PO BID #60 tab Losartan [Cozaar] 25 mg PO DAILY #30 tab Metoprolol Tartrate [Lopressor] 25 mg PO BID #60 tab Continue Dulaglutide [Trulicity] 3 mg SQ MO Fenofibrate,Micronized 200 mg PO HS Empagliflozin [Jardiance] 10 mg PO DAILY Pioglitazone [Actos] 30 mg PO DAILY Insulin Lispro Protamin/Lispro [humaLOG Mix 50-50 Kwikpen] 30 units SQ AC- BRKFST Insulin Lispro Protamin/Lispro [humaLOG Mix 50-50 Kwikpen] 54 units SQ AC- SUPPER metFORMIN HCL ER [Glucophage XR] 500 mg PO BID Aspirin EC [Ecotrin Low Dose] 81 mg PO DAILY #30 tab Discontinued Losartan-Hctz 50-12.5 mg [Hyzaar 50-12.5] 1 tab PO DAILY Atorvastatin [Lipitor] 40 mg PO HS Discharge Medication List Dulaglutide [Trulicity] 3 mg SQ MO 11/26/21 [History] Empagliflozin [Jardiance] 10 mg PO DAILY 11/26/21 [History] Fenofibrate,Micronized 200 mg PO HS 11/26/21 [History] Insulin Lispro Protamin/Lispro [humaLOG Mix 50-50 Kwikpen] 30 units SQ AC-BRKFST 11/26/21 [History] Insulin Lispro Protamin/Lispro [humaLOG Mix 50-50 Kwikpen] 54 units SQ AC-SUPPER 11/26/21 [History] Pioglitazone [Actos] 30 mg PO DAILY 11/26/21 [History] metFORMIN HCL ER [Glucophage XR] 500 mg PO BID 11/26/21 [History] Aspirin EC [Ecotrin Low Dose] 81 mg PO DAILY #30 tab 11/29/21 [Rx] Atorvastatin [Lipitor] 80 mg PO HS #30 tab 11/29/21 [Rx] Losartan [Cozaar] 25 mg PO DAILY #30 tab 11/29/21 [Rx] Metoprolol Tartrate [Lopressor] 25 mg PO BID #60 tab 11/29/21 [Rx] Nitroglycerin Sl Tabs [Nitrostat] 0.4 mg SUBLINGUAL Q5M PRN #14 tab 11/29/21 [Rx] Ticagrelor [Brilinta] 90 mg PO BID #60 tab 11/29/21 [Rx] Follow up Appointment(s)/Referral(s): Keny Machado DO [STAFF PHYSICIAN] - 1 Week Nonstaff,Physician [Primary Care Provider] - 1-2 days Activity/Diet/Wound Care/Special Instructions: Diet:Cardiac, Diabetic FU with PCP within 1-2 days of discharge. FU with Cardiology within 1 week of discharge. Take all medications as advised. Come back to the ED or call 911 for worsening chest pain, shortness of breath, palpitations, dizziness/lightheadedness. Discharge Disposition: HOME SELF-CARE
[2021-11-30] MEDS ORDERED: LOSARTAN 25 MG TAB PO SCH (09:00)
--- NOTE | 2021-12-03 15:42 | CA ---
Transthoracic Echo Report Name: Rio Majano Age: 65 Gender: M : 1955 Exam Date: 11/27/2021 14:35 Exam Location: [facility] Ht (in): 70 Wt (lb): 310 Ordering Physician: Sánchez Lindsey MD Attending/Referring Phys: Tourist Information Assistant Key Harper RDCS Procedure CPT: Indications: stemi Cardiac Hx: Technical Quality: Technically difficult study Contrast 1: Total Dose (mL): Contrast 2: Total Dose (mL): MEASUREMENTS (Male / Female) Normal Values 2D ECHO LV Diastolic Diameter PLAX 5.6 cm 4.2 - 5.9 / 3.9 - 5.3 cm LV Systolic Diameter PLAX 4.0 cm IVS Diastolic Thickness 1.3 cm 0.6 - 1.0 / 0.6 - 0.9 cm LVPW Diastolic Thickness 1.1 cm 0.6 - 1.0 / 0.6 - 0.9 cm LV Relative Wall Thickness 0.4 RV Internal Dim ED PLAX 2.6 cm LA Systolic Diameter LX 3.3 cm 3.0 - 4.0 / 2.7 - 3.8 cm M-MODE Aortic Root Diameter MM 4.0 cm MV E Point Septal Separation 1.5 cm AV Cusp Separation MM 2.2 cm DOPPLER AV Peak Velocity 121.5 cm/s AV Peak Gradient 5.9 mmHg MV Area PHT 3.4 cm??? Mitral E Point Velocity 87.7 cm/s Mitral A Point Velocity 101.1 cm/s Mitral E to A Ratio 0.9 MV Deceleration Time 226.3 ms MV E' Velocity 4.9 cm/s Mitral E to MV E' Ratio 17.8 TR Peak Velocity 201.1 cm/s TR Peak Gradient 16.2 mmHg Right Ventricular Systolic Press 20.6 mmHg FINDINGS Left Ventricle Left ventricular ejection fraction is estimated at 40-45 %. Left ventricular cavity size normal. Mild concentric left ventricular hypertrophy. Inferior basel hypokinesis Right Ventricle Normal right ventricular size. Right ventricular systolic pressure within normal limits. Right Atrium Normal right atrial size. Left Atrium Normal left atrial size. Mitral Valve Mitral annular calcification. No mitral stenosis, regurgitation or prolapse. Aortic Valve Focal thickening of the aortic valve cusps. Tricuspid Valve Mild tricuspid regurgitation. Pulmonic Valve Trace pulmonic regurgitation. Pericardium Normal pericardium. Aorta Moderate aortic dilatation at the level of the aortic arch 40 mm CONCLUSIONS Left ventricular ejection fraction is estimated at 40-45 %. Mild concentric left ventricular hypertrophy. Inferior basel hypokinesis Mild tricuspid regurgitation. Moderate aortic dilatation at the level of the aortic arch 40 mm Previewed by: Dr. Keny Machado DO (Electronically Signed) Final Date: 28 Nov 2021 11:41
== END 2021-11-29 15:35 | disposition home or self-care (01) | DRG 246 ==
LOC: EC 18:44 → 2SICU 19:42
PROVIDERS: ADMIT Internal Medicine; ATTEND Internal Medicine
PROC: B2111ZZ Fluoroscopy of Multiple Coronary Arteries using Low Osmolar Contrast (ICD-10-PCS; principal; 2021-11-26 20:09)
PROC: 4A023N7 Measurement of Cardiac Sampling and Pressure, Left Heart, Percutaneous Approach (ICD-10-PCS; principal; 2021-11-26 20:09)
PROC: 027034Z Dilation of Coronary Artery, One Artery with Drug-eluting Intraluminal Device, Percutaneous Approach (ICD-10-PCS; principal; 2021-11-26 20:09)
PROC: 3E043XZ Introduction of Vasopressor into Central Vein, Percutaneous Approach (ICD-10-PCS; 2021-11-26 20:09)
DX: I21.19 ST elevation (STEMI) myocardial infarction involving other coronary artery of inferior wall (principal); R57.0 Cardiogenic shock; N17.9 Acute kidney failure, unspecified; Z68.42 Body mass index [BMI] 45.0-49.9, adult; I25.10 Atherosclerotic heart disease of native coronary artery without angina pectoris; I12.9 Hypertensive chronic kidney disease with stage 1 through stage 4 chronic kidney disease, or unspecified chronic kidney disease; E11.22 Type 2 diabetes mellitus with diabetic chronic kidney disease; N18.30 Chronic kidney disease, stage 3 unspecified; E66.9 Obesity, unspecified; Z79.4 Long term (current) use of insulin; Z79.84 Long term (current) use of oral hypoglycemic drugs; E78.5 Hyperlipidemia, unspecified; Z28.310 Unvaccinated for COVID-19; Z90.89 Acquired absence of other organs; Z98.890 Other specified postprocedural states; Z79.02 Long term (current) use of antithrombotics/antiplatelets; Z79.82 Long term (current) use of aspirin; Z79.899 Other long term (current) drug therapy; Z82.3 Family history of stroke; Z82.49 Family history of ischemic heart disease and other diseases of the circulatory system; Z82.0 Family history of epilepsy and other diseases of the nervous system; Z87.442 Personal history of urinary calculi; Z87.891 Personal history of nicotine dependence; Z88.8 Allergy status to other drugs, medicaments and biological substances; Z81.8 Family history of other mental and behavioral disorders
CPT/HCPCS: 71045; 80048; 80053; 83735; 83880; 84484; 85025; 85027; 85610; 85730; 93005; 93306; 93458; 96361; 96374; 99291

== ENCOUNTER 2021-11-30 01:33 | Inpatient (IN) | payer MEDICARE ==
[2021-11-30] MEDS ORDERED: FUROSEMIDE 10 MG/ML 2 ML VIAL IV STA (02:27)
[2021-11-30] MEDS ORDERED: NITROGLYCERIN OINT 1 INCH/GM PACKET TOPICAL STA (02:27)
[2021-11-30] MEDS ORDERED: PIPERACILLIN-TAZOBACTAM 3.375 GM in SODIUM CHLORIDE 0.9% 100 ML IVPB STA (02:30)
[2021-11-30 02:49] LABS: Basophils % (A) 0 %; Eosinophils # (A) 0.2 k/uL (0-0.7); Eosinophils % (A) 3 %; HCT 47.1 % (39.0-53.0); HGB 14.9 gm/dL (13.0-17.5); Lymphocytes # (A) 1.2 k/uL (1.0-4.8); Lymphocytes % (A) 21 %; MCHC 31.6 g/dL (31.0-37.0); MCV 88.8 fL (80.0-100.0); Mean Platelet Volume 8.6; Monocytes # (A) 0.6 k/uL (0-1.0); Monocytes % (A) 10 %; Neutrophils # (A) 3.6 k/uL (1.3-7.7); Neutrophils % (A) 62 %; Platelet Count 201 k/uL (150-450); RBC 5.31 m/uL (4.30-5.90); RDW 14.7 % (11.5-15.5); WBC 5.7 k/uL (3.8-10.6)
--- NOTE | 2021-11-30 02:50 | XR ---
EXAMINATION TYPE: XR chest 2V DATE OF EXAM: 11/30/2021 COMPARISON: 11/26/2021 HISTORY: Short of breath TECHNIQUE: FINDINGS: Heart is normal. Lungs are clear. Diaphragm is normal. No heart failure. There are chest le ads. Bony thorax is intact. IMPRESSION: No active cardiopulmonary disease. No change.
[2021-11-30 02:59] LABS: Albumin 3.9 g/dL (3.5-5.0); Calcium 8.8 mg/dL (8.4-10.2); Potassium 3.9 mmol/L (3.5-5.1); Total Protein 6.6 g/dL (6.3-8.2)
[2021-11-30 03:09] LABS: Partial Thromboplastin Time 22.8 sec (22.0-30.0); Prothrombin Time 10.9 sec (9.0-12.0)
--- NOTE | 2021-11-30 04:08 | ED ---
SOB HPI - General Chief Complaint: Shortness of Breath Stated Complaint: ZULAY Time Seen by Provider: 11/30/21 02:15 Source: patient Mode of arrival: ambulatory - History of Present Illness Initial Comments: This patient is a 65 -year-old man who presents to have evaluation mainly for orthopnea. The patient had been admitted in the hospital with chest pain last week had a stent placed and then had been discharged yesterday. The patient states that he tried to stay home but that anytime he tried to lie flat for sleep he just could not breathe. He is not having any chest pain. He states that he does have some bilateral ankle swelling. He has not had pain in the legs. No change in urination or bowel movements. MD Complaint: shortness of breath -: hour(s) Severity scale (1-10): 0 Consistency: constant Improves With: upright position Worsens With: lying flat Associated Symptoms: denies other symptoms Treatments Prior to Arrival: none - Related Data Home Oxygen Therapy: No Home Medications Medication Instructions Recorded Confirmed Dulaglutide [Trulicity] 3 mg SQ MO 11/26/21 11/30/21 Empagliflozin [Jardiance] 10 mg PO DAILY 11/26/21 11/30/21 Fenofibrate,Micronized 200 mg PO HS 11/26/21 11/30/21 Insulin Lispro Protamin/Lispro 34 units SQ AC-BID 11/26/21 11/30/21 [humaLOG Mix 50-50 Kwikpen] Pioglitazone [Actos] 30 mg PO DAILY 11/26/21 11/30/21 metFORMIN HCL ER [Glucophage XR] 500 mg PO BID 11/26/21 11/30/21 Atorvastatin [Lipitor] 80 mg PO HS 11/30/21 11/30/21 Previous Rx's Medication Instructions Recorded Aspirin EC [Ecotrin Low Dose] 81 mg PO DAILY #30 tab 11/29/21 Losartan [Cozaar] 25 mg PO DAILY #30 tab 11/29/21 Metoprolol Tartrate [Lopressor] 25 mg PO BID #60 tab 11/29/21 Nitroglycerin Sl Tabs [Nitrostat] 0.4 mg SUBLINGUAL Q5M PRN #14 tab 11/29/21 Ticagrelor [Brilinta] 90 mg PO BID #60 tab 11/29/21 Allergies Allergy/AdvReac Type Severity Reaction Status Date / Time No Known Allergies Allergy Verified 11/30/21 12:40 Review of Systems ROS Statement: Those systems with pertinent positive or pertinent negative responses have been documented in the HPI. ROS Other: All systems not noted in ROS Statement are negative. Constitutional: Denies: fever, chills, weakness Respiratory: Denies: cough, dyspnea, wheezes, hemoptysis Cardiovascular: Reports: orthopnea, edema. Denies: chest pain, palpitations, syncope Gastrointestinal: Denies: abdominal pain, nausea, vomiting, melena, hematochezia Genitourinary: Denies: dysuria, hematuria Musculoskeletal: Denies: back pain Skin: Denies: rash Neurological: Denies: headache, weakness, numbness Past Medical History Past Medical History: Diabetes Mellitus, Hyperlipidemia, Hypertension, Myocardial Infarction (OK) History of Any Multi-Drug Resistant Organisms: None Reported Past Surgical History: Heart Catheterization With Stent, Orthopedic Surgery, Tonsillectomy Additional Past Surgical History / Comment(s): kidney stone surgery x2, hemrrhoid surgery, right elbow surgery Past Anesthesia/Blood Transfusion Reactions: No Reported Reaction Past Psychological History: No Psychological Hx Reported Smoking Status: Former smoker Past Alcohol Use History: None Reported Past Drug Use History: None Reported - Past Family History Father Family Medical History: CVA/TIA, Dementia Additional Family Medical History / Comment(s): passed way at 63 Mother Family Medical History: Congestive Heart Failure (CHF) Additional Family Medical History / Comment(s): at 96 from covid and chf General Exam General appearance: alert, in no apparent distress Head exam: Present: atraumatic, normocephalic Eye exam: Present: normal appearance. Absent: scleral icterus, conjunctival injection Neck exam: Present: normal inspection Respiratory exam: Present: rales (At bases bilaterally). Absent: respiratory distress, wheezes, rhonchi, stridor, decreased breath sounds Cardiovascular Exam: Present: regular rate, normal rhythm, normal heart sounds. Absent: systolic murmur, diastolic murmur, rubs, gallop GI/Abdominal exam: Present: soft. Absent: distended, tenderness, guarding, rebound, rigid, mass Extremities exam: Present: normal inspection, normal capillary refill, pedal edema (Trace edema at the ankles bilaterally). Absent: calf tenderness Back exam: Present: normal inspection. Absent: CVA tenderness (R), CVA tenderness (L) Neurological exam: Present: alert Skin exam: Present: warm, dry, intact, normal color. Absent: rash Course Vital Signs 11/30/21 11/30/21 11/30/21 01:43 05:32 06:56 Temperature 97.8 F 98.0 F Pulse Rate 77 85 Pulse Rate [ 72 Right Pulse Oximetery] Respiratory 19 16 18 Rate Blood Pressure 130/81 98/64 Blood Pressure 104/65 [Right Arm Supine] O2 Sat by Pulse 97 95 95 Oximetry Procedures - Gillespie Protocol (Time Out) Nurse: Daphne Rowley Medical Decision Making - Medical Decision Making Patient is 66-year-old man presenting back at Hospital after he is unable to lie flat tonight following his discharge yesterday. The patient not having symptoms suggestive of new ischemia. The history and physical consistent with degree of congestive heart failure. Patient not feeling significantly better following medications here in emergency department will admit for some diuresis. Patient also found to have elevated troponin but suspect this is due to recent stenting, no evidence of new ischemia. - Lab Data Result diagrams: 12/03/21 07:20 12/03/21 07:20 Lab Results 11/30/21 11/30/21 11/30/21 Range/Units 02:29 02:29 02:29 WBC 5.7 (3.8-10.6) k/uL RBC 5.31 (4.30-5.90) m/uL Hgb 14.9 (13.0-17.5) gm/dL Hct 47.1 (39.0-53.0) % MCV 88.8 (80.0-100.0) fL MCH 28.0 (25.0-35.0) pg MCHC 31.6 (31.0-37.0) g/dL RDW 14.7 (11.5-15.5) % Plt Count 201 (150-450) k/uL MPV 8.6 Neutrophils % 62 % Lymphocytes % 21 % Monocytes % 10 % Eosinophils % 3 % Basophils % 0 % Neutrophils # 3.6 (1.3-7.7) k/uL Lymphocytes # 1.2 (1.0-4.8) k/uL Monocytes # 0.6 (0-1.0) k/uL Eosinophils # 0.2 (0-0.7) k/uL Basophils # 0.0 (0-0.2) k/uL PT 10.9 (9.0-12.0) sec INR 1.0 (<1.2) APTT 22.8 (22.0-30.0) sec Sodium 136 L (137-145) mmol/L Potassium 3.9 (3.5-5.1) mmol/L Chloride 105 (98-107) mmol/L Carbon Dioxide 23 (22-30) mmol/L Anion Gap 8 mmol/L BUN 22 H (9-20) mg/dL Creatinine 1.42 H (0.66-1.25) mg/dL Est GFR (CKD-EPI)AfAm 59 (>60 ml/min/1.73 sqM) Est GFR (CKD-EPI)NonAf 51 (>60 ml/min/1.73 sqM) Glucose 136 H (74-99) mg/dL POC Glucose (mg/dL) (75-99) mg/dL POC Glu Post Closer ID Estimated Ave Glu mg/dL Hemoglobin A1c (0.0-6.0) % Plasma Lactic Acid Gomez (0.7-2.0) mmol/L Calcium 8.8 (8.4-10.2) mg/dL Total Bilirubin 1.0 (0.2-1.3) mg/dL AST 78 H (17-59) U/L ALT 54 H (4-49) U/L Alkaline Phosphatase 53 (38-126) U/L Troponin I (0.000-0.034) ng/mL NT-Pro-B Natriuret Pep pg/mL Total Protein 6.6 (6.3-8.2) g/dL Albumin 3.9 (3.5-5.0) g/dL 11/30/21 11/30/21 11/30/21 Range/Units 02:29 02:29 02:29 WBC (3.8-10.6) k/uL RBC (4.30-5.90) m/uL Hgb (13.0-17.5) gm/dL Hct (39.0-53.0) % MCV (80.0-100.0) fL MCH (25.0-35.0) pg MCHC (31.0-37.0) g/dL RDW (11.5-15.5) % Plt Count (150-450) k/uL MPV Neutrophils % % Lymphocytes % % Monocytes % % Eosinophils % % Basophils % % Neutrophils # (1.3-7.7) k/uL Lymphocytes # (1.0-4.8) k/uL Monocytes # (0-1.0) k/uL Eosinophils # (0-0.7) k/uL Basophils # (0-0.2) k/uL PT (9.0-12.0) sec INR (<1.2) APTT (22.0-30.0) sec Sodium (137-145) mmol/L Potassium (3.5-5.1) mmol/L Chloride (98-107) mmol/L Carbon Dioxide (22-30) mmol/L Anion Gap mmol/L BUN (9-20) mg/dL Creatinine (0.66-1.25) mg/dL Est GFR (CKD-EPI)AfAm (>60 ml/min/1.73 sqM) Est GFR (CKD-EPI)NonAf (>60 ml/min/1.73 sqM) Glucose (74-99) mg/dL POC Glucose (mg/dL) (75-99) mg/dL POC Glu Post Closer ID Estimated Ave Glu mg/dL Hemoglobin A1c (0.0-6.0) % Plasma Lactic Acid Gomez 1.3 (0.7-2.0) mmol/L Calcium (8.4-10.2) mg/dL Total Bilirubin (0.2-1.3) mg/dL AST (17-59) U/L ALT (4-49) U/L Alkaline Phosphatase (38-126) U/L Troponin I 8.010 H* (0.000-0.034) ng/mL NT-Pro-B Natriuret Pep 1320 pg/mL Total Protein (6.3-8.2) g/dL Albumin (3.5-5.0) g/dL 11/30/21 11/30/21 11/30/21 Range/Units 11:52 14:14 16:18 WBC (3.8-10.6) k/uL RBC (4.30-5.90) m/uL Hgb (13.0-17.5) gm/dL Hct (39.0-53.0) % MCV (80.0-100.0) fL MCH (25.0-35.0) pg MCHC (31.0-37.0) g/dL RDW (11.5-15.5) % Plt Count (150-450) k/uL MPV Neutrophils % % Lymphocytes % % Monocytes % % Eosinophils % % Basophils % % Neutrophils # (1.3-7.7) k/uL Lymphocytes # (1.0-4.8) k/uL Monocytes # (0-1.0) k/uL Eosinophils # (0-0.7) k/uL Basophils # (0-0.2) k/uL PT (9.0-12.0) sec INR (<1.2) APTT (22.0-30.0) sec Sodium (137-145) mmol/L Potassium (3.5-5.1) mmol/L Chloride (98-107) mmol/L Carbon Dioxide (22-30) mmol/L Anion Gap mmol/L BUN (9-20) mg/dL Creatinine (0.66-1.25) mg/dL Est GFR (CKD-EPI)AfAm (>60 ml/min/1.73 sqM) Est GFR (CKD-EPI)NonAf (>60 ml/min/1.73 sqM) Glucose (74-99) mg/dL POC Glucose (mg/dL) 166 H 233 H (75-99) mg/dL POC Glu Post Closer Fabiola Montgomery [address] Estimated [address] Glu mg/dL Hemoglobin A1c (0.0-6.0) % Plasma Lactic Acid Gomez (0.7-2.0) mmol/L Calcium (8.4-10.2) mg/dL Total Bilirubin (0.2-1.3) mg/dL AST (17-59) U/L ALT (4-49) U/L Alkaline Phosphatase (38-126) U/L Troponin I 5.250 H* (0.000-0.034) ng/mL NT-Pro-B Natriuret Pep pg/mL Total Protein (6.3-8.2) g/dL Albumin (3.5-5.0) g/dL 11/30/21 12/01/21 12/01/21 Range/Units 20:02 05:02 08:14 WBC 5.5 (3.8-10.6) k/uL RBC 5.60 (4.30-5.90) m/uL Hgb 16.1 (13.0-17.5) gm/dL Hct 50.2 (39.0-53.0) % MCV 89.6 (80.0-100.0) fL MCH 28.7 (25.0-35.0) pg MCHC 32.0 (31.0-37.0) g/dL RDW 14.3 (11.5-15.5) % Plt Count 205 (150-450) k/uL MPV 8.8 Neutrophils % 64 % Lymphocytes % 17 % Monocytes % 13 % Eosinophils % 2 % Basophils % 1 % Neutrophils # 3.6 (1.3-7.7) k/uL Lymphocytes # 1.0 (1.0-4.8) k/uL Monocytes # 0.7 (0-1.0) k/uL Eosinophils # 0.1 (0-0.7) k/uL Basophils # 0.1 (0-0.2) k/uL PT (9.0-12.0) sec INR (<1.2) APTT (22.0-30.0) sec Sodium (137-145) mmol/L Potassium (3.5-5.1) mmol/L Chloride (98-107) mmol/L Carbon Dioxide (22-30) mmol/L Anion Gap mmol/L BUN (9-20) mg/dL Creatinine (0.66-1.25) mg/dL Est GFR (CKD-EPI)AfAm (>60 ml/min/1.73 sqM) Est GFR (CKD-EPI)NonAf (>60 ml/min/1.73 sqM) Glucose (74-99) mg/dL POC Glucose (mg/dL) 200 H 182 H (75-99) mg/dL POC Glu Post Closer Triny Adames Katie Estimated [address] Glu mg/dL Hemoglobin A1c (0.0-6.0) % Plasma Lactic Acid Gomez (0.7-2.0) mmol/L Calcium (8.4-10.2) mg/dL Total Bilirubin (0.2-1.3) mg/dL AST (17-59) U/L ALT (4-49) U/L Alkaline Phosphatase (38-126) U/L Troponin I (0.000-0.034) ng/mL NT-Pro-B Natriuret Pep pg/mL Total Protein (6.3-8.2) g/dL Albumin (3.5-5.0) g/dL 12/01/21 12/01/21 12/01/21 Range/Units 08:14 08:14 08:14 WBC (3.8-10.6) k/uL RBC (4.30-5.90) m/uL Hgb (13.0-17.5) gm/dL Hct (39.0-53.0) % MCV (80.0-100.0) fL MCH (25.0-35.0) pg MCHC (31.0-37.0) g/dL RDW (11.5-15.5) % Plt Count (150-450) k/uL MPV Neutrophils % % Lymphocytes % % Monocytes % % Eosinophils % % Basophils % % Neutrophils # (1.3-7.7) k/uL Lymphocytes # (1.0-4.8) k/uL Monocytes # (0-1.0) k/uL Eosinophils # (0-0.7) k/uL Basophils # (0-0.2) k/uL PT (9.0-12.0) sec INR (<1.2) APTT (22.0-30.0) sec Sodium 135 L (137-145) mmol/L Potassium 4.0 (3.5-5.1) mmol/L Chloride 97 L (98-107) mmol/L Carbon Dioxide 25 (22-30) mmol/L Anion Gap 13 mmol/L BUN 27 H (9-20) mg/dL Creatinine 1.46 H (0.66-1.25) mg/dL Est GFR (CKD-EPI)AfAm 57 (>60 ml/min/1.73 sqM) Est GFR (CKD-EPI)NonAf 49 (>60 ml/min/1.73 sqM) Glucose 315 H (74-99) mg/dL POC Glucose (mg/dL) (75-99) mg/dL POC Glu Post Closer ID Estimated Ave Glu mg/dL 167 Hemoglobin A1c 7.5 H (0.0-6.0) % Plasma Lactic Acid Gomez (0.7-2.0) mmol/L Calcium 9.0 (8.4-10.2) mg/dL Total Bilirubin (0.2-1.3) mg/dL AST (17-59) U/L ALT (4-49) U/L Alkaline Phosphatase (38-126) U/L Troponin I (0.000-0.034) ng/mL NT-Pro-B Natriuret Pep 1130 pg/mL Total Protein (6.3-8.2) g/dL Albumin (3.5-5.0) g/dL 12/01/21 12/01/21 Range/Units 10:03 11:24 WBC (3.8-10.6) k/uL RBC (4.30-5.90) m/uL Hgb (13.0-17.5) gm/dL Hct (39.0-53.0) % MCV (80.0-100.0) fL MCH (25.0-35.0) pg MCHC (31.0-37.0) g/dL RDW (11.5-15.5) % Plt Count (150-450) k/uL MPV Neutrophils % % Lymphocytes % % Monocytes % % Eosinophils % % Basophils % % Neutrophils # (1.3-7.7) k/uL Lymphocytes # (1.0-4.8) k/uL Monocytes # (0-1.0) k/uL Eosinophils # (0-0.7) k/uL Basophils # (0-0.2) k/uL PT (9.0-12.0) sec INR (<1.2) APTT (22.0-30.0) sec Sodium (137-145) mmol/L Potassium (3.5-5.1) mmol/L Chloride (98-107) mmol/L Carbon Dioxide (22-30) mmol/L Anion Gap mmol/L BUN (9-20) mg/dL Creatinine (0.66-1.25) mg/dL Est GFR (CKD-EPI)AfAm (>60 ml/min/1.73 sqM) Est GFR (CKD-EPI)NonAf (>60 ml/min/1.73 sqM) Glucose (74-99) mg/dL POC Glucose (mg/dL) 290 H 240 H (75-99) mg/dL POC Glu Post Closer ID Lovejoy, Elvira Tayo, Radha Estimated Ave Glu mg/dL Hemoglobin A1c (0.0-6.0) % Plasma Lactic Acid Gomez (0.7-2.0) mmol/L Calcium (8.4-10.2) mg/dL Total Bilirubin (0.2-1.3) mg/dL AST (17-59) U/L ALT (4-49) U/L Alkaline Phosphatase (38-126) U/L Troponin I (0.000-0.034) ng/mL NT-Pro-B Natriuret Pep pg/mL Total Protein (6.3-8.2) g/dL Albumin (3.5-5.0) g/dL - EKG Data -: EKG Interpreted by Me EKG shows normal: sinus rhythm, axis (Normal), intervals (Normal), QRS complexes (Low voltage QRS complex. 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
[2021-11-30] MEDS ORDERED: LORazepam 2 MG/ML INJ IV STA (06:08)
[2021-11-30] MEDS: FUROSEMIDE 10 MG/ML 4 ML VIAL IV SCH ×2 (06:42→18:13)
[2021-11-30 12:10] LABS: Glucose,Whole Blood 166 mg/dL (75-99)
--- NOTE | 2021-11-30 12:43 | P.HPIM ---
History of Present Illness H&P Date: 11/30/21 Chief Complaint: Shortness of breath Patient is a 65-year-old male with a PMH of type II DM, hypertension, hyperlipidemia, chronic kidney disease who had presented to the emergency room on 11/26 with complaints of chest discomfort, nausea, and diaphoresis. In the emergency room, EKG revealed ST elevations in the inferior leads. Code STEMI was activated and the patient was taken to the [facility] where a cardiac catheterization had revealed 100% proximal RCA stenosis, 60-70% mid RCA stenosis, 80% OM1 stenosis. A successful PCI to the proximal RCA was performed. He was hydrated overnight and his acute kidney injury improved. The case was discussed with Dr. Machado who cleared the patient for discharge and a planned PCI in the outpatient setting. Patient was advised to continue ASA 81 mg PO QD, Brilinta 90 mg PO BID, Lipitor 80 mg PO QHS, Metoprolol 25 mg PO BID and Losartan 25 mg PO QD. Patient reports once he got home he was generally doing well while exerting and sitting. When he went to lay down to sleep he reports that he was dozing off and feeling immensely short of breath. He also reports some lower extremity edema. He denies any headache, nausea or vomiting, fever or chills, cough, chest pain, palpitations, changes in urination or bowel habits. No changes in appetite or weight. He denies any dizziness, numbness/weakness/tingling of the extremities. In the ED, his vital signs were stable. Chest x-ray was negative. CBC was unremarkable. CMP showed sodium of 136, BUN of 22, creatinine of 1.42, glucose of 136, AST of 78 and ALT of 54. Troponin was 8.01. BNP was 1320. Patient was admitted for CHF exacerbation, elevated troponin and cardiology evaluation. Review of systems was performed and is negative except above. General: [non toxic], [no distress], [appears at stated age] Derm: [warm], [dry] Head: [atraumatic], [normocephalic], [symmetric] Eyes: [EOMI], [no lid lag], [anicteric sclera] Mouth: [no lip lesion], [mucus membranes moist] Cardiovascular: [S1S2 reg], [no murmur], [positive posterior tibial pulse bilateral], Lungs: [Decreased breath sounds bilateral], [no rhonchi, no rales] , [no accessory muscle use] Abdominal: [soft], [ nontender to palpation], [no guarding], [no appreciable organomegaly] Ext: [no gross muscle atrophy], [1+ pitting bilateral lower extremity edema], [no contractures] Neuro: [ CN II-XI grossly intact], [no focal neuro deficits] Psych: [Alert], [oriented], [appropriate affect] #Mild CHF exacerbation #Elevated troponin with recent history of STEMI and PCI of the RCA #Acute kidney injury #Transaminitis Chronic conditions: Type II DM, hypertension, hyperlipidemia, chronic kidney dis ease Patient presents with shortness of breath especially while laying down. His BNP is slightly elevated. Chest X ray is clean. He has been started on Lasix 40 mg IV twice a day. Strict intake and output will be ordered along with daily weights. He will be placed on telemetry monitoring. Echocardiogram was done during his previous admission and official read is pending. Cardiology will be consulted for further management of this patient. His elevated troponin is likely related to his recent STEMI and PCI of the RCA. He has no chest pain. He'll be restarted on aspirin, Lipitor, Brilinta and metoprolol. Patient has creatinine of 1.42. His creatinine in 2014 was 1.4. This is likely at baseline. Restart losartan. Repeat BMP tomorrow morning. His transaminitis is of unknown etiology. He'll be started on low-dose insulin sliding scale along with Accu-Cheks 4 times a day and hypoglycemic precautions. Vital signs will be monitored and medication adjusted if necessary. He will be placed in observation status with anticipated discharge < 48H. DVT prophylaxis: [SCDs] Discussed with: [Patient] Anticipated discharge: [1-2 days] Anticipated discharge place: [Home] A total of [45] minutes was spent on the care of this complex patient more than 50% of the time was spent in counseling and care coordination. Patient names his decision maker if he can't make decisions for himself. Patient would like to be full code. Patient would benefit from a sleep study as discussed during his previous admission. Past Medical History Past Medical History: Coronary Artery Disease (CAD), Chest Pain / Angina, Diabetes Mellitus, Hyperlipidemia, Hypertension, Myocardial Infarction (OK) Last Myocardial Infarction Date:: 11/26/2021 History of Any Multi-Drug Resistant Organisms: None Reported Past Surgical History: Heart Catheterization With Stent, Orthopedic Surgery, Tonsillectomy Additional Past Surgical History / Comment(s): kidney stone surgery x2, hemrrhoid surgery, right elbow surgery Past Anesthesia/Blood Transfusion Reactions: No Reported Reaction Date of Last Stent Placement:: 11/26/2021 Past Psychological History: No Psychological Hx Reported Smoking Status: Former smoker Past Alcohol Use History: None Reported Past Drug Use History: None Reported - Past Family History Father Family Medical History: CVA/TIA, Dementia Additional Family Medical History / Comment(s): passed way at 63 Mother Family Medical History: Congestive Heart Failure (CHF) Additional Family Medical History / Comment(s): at 96 from covid and chf Medications and Allergies Home Medications Medication Instructions Recorded Confirmed Type Dulaglutide [Trulicity] 3 mg SQ MO 11/26/21 11/30/21 History Empagliflozin [Jardiance] 10 mg PO DAILY 11/26/21 11/30/21 History Fenofibrate,Micronized 200 mg PO HS 11/26/21 11/30/21 History Insulin Lispro Protamin/Lispro 34 units SQ AC-BID 11/26/21 11/30/21 History [humaLOG Mix 50-50 Kwikpen] Pioglitazone [Actos] 30 mg PO DAILY 11/26/21 11/30/21 History metFORMIN HCL ER [Glucophage XR] 500 mg PO BID 11/26/21 11/30/21 History Aspirin EC [Ecotrin Low Dose] 81 mg PO DAILY #30 tab 11/29/21 11/30/21 Rx Losartan [Cozaar] 25 mg PO DAILY #30 tab 11/29/21 11/30/21 Rx Metoprolol Tartrate [Lopressor] 25 mg PO BID #60 tab 11/29/21 11/30/21 Rx Nitroglycerin Sl Tabs [Nitrostat] 0.4 mg SUBLINGUAL Q5M PRN #14 tab 11/29/21 11/30/21 Rx Ticagrelor [Brilinta] 90 mg PO BID #60 tab 11/29/21 11/30/21 Rx Atorvastatin [Lipitor] 80 mg PO HS 11/30/21 11/30/21 History Allergies Allergy/AdvReac Type Severity Reaction Status Date / Time No Known Allergies Allergy Verified 11/30/21 12:40 Physical Exam Vitals: Vital Signs Temp Pulse Pulse Resp BP BP Pulse Ox 11/30/21 06:56 98.0 F 72 18 104/65 95 11/30/21 05:32 85 16 98/64 95 11/30/21 01:43 97.8 F 77 19 130/81 97 Intake and Output 11/29/21 11/30/21 11/30/21 22:59 06:59 14:59 Other: Weight 140.614 kg Results CBC & Chem 7: 11/30/21 02:29 11/30/21 02:29 Labs: Abnormal Lab Results - Last 24 Hours (Table) 11/30/21 11/30/21 11/30/21 Range/Units 02:29 02:29 11:52 Sodium 136 L (137-145) mmol/L BUN 22 H (9-20) mg/dL Creatinine 1.42 H (0.66-1.25) mg/dL Glucose 136 H (74-99) mg/dL POC Glucose (mg/dL) 166 H (75-99) mg/dL AST 78 H (17-59) U/L ALT 54 H (4-49) U/L Troponin I 8.010 H* (0.000-0.034) ng/mL Thrombosis Risk Factor Assmnt - Choose All That Apply Any of the Below Risk Factors Present?: Yes Each Factor Represents 1 point: Obesity (BMI >25), Swollen legs (current) Other Risk Factors: Yes Each Risk Factor Represents 2 Points: Age 61-74 years Other congenital or acquired thrombophilia - If yes, enter type in comment: No Thrombosis Risk Factor Assessment Total Risk Factor Score: 4 Thrombosis Risk Factor Assessment Level: Moderate Risk
[2021-11-30] MEDS: NITROGLYCERIN OINT 1 INCH/GM PACKET TOPICAL SCH ×4 (12:53→23:30)
--- NOTE | 2021-11-30 13:16 | P.CRDCN ---
History of Present Illness History of present illness: HISTORY OF PRESENTING ILLNESS Patient is pleasant 66-year-old male with history of diabetes mellitus type 2, hypertension, hyperlipidemia, coronary artery disease status post STEMI 11/26/2021 with inferior ME and PCI of RCA with residual OM disease, congestive heart failure, hyperlipidemia. He recently presented 11/26/2021 with symptoms of chest pain and heartburn sensation and was found to have inferior ST elevation. He was hypotensive at the time and placed on pressors and emergency heart catheterization performed with PCI of the RCA. He was noted to have residual OM disease. His pressors were weaned and he was placed on Lopressor 25 twice a day, losartan as well as dual antiplatelets. He was monitored in the hospital and discharged home yesterday. Unfortunately towards end of the day he was noticing increased lower extremity edema and orthopnea and therefore came back to emergency department. He denies any further chest pain or heartburn sensation. He denies missing any of his medications. He shows normal sinus rhythm with minimal ST elevation inferiorly with T-wave inversion improved from previous. Troponin noted to be elevated at 8 however repeat troponins not drawn and likely on the downtrend from prior myocardial infarction. Echocardiogram had been performed last hospitalization however not transferred over from medical record. REVIEW OF SYSTEMS At the time of my exam: CONSTITUTIONAL: Denies fever or chills. CARDIOVASCULAR: Denies chest pain, +shortness of breath, +orthopnea, no PND or palpitations. RESPIRATORY: Denies cough. GASTROINTESTINAL: Denies abdominal pain, diarrhea, constipation, nausea or vomiting. MUSCULOSKELETAL: Denies myalgias. NEUROLOGIC: Denies numbness, tingling or weakness. ENDOCRINE: Denies fatigue, weight change, polydipsia or polyurina. GENITOURINARY: Denies burning, hematuria or urgency with micturation. HEMATOLOGIC: Denies history of anemia or bleeding. PHYSICAL EXAMINATION Vital signs reviewed. CONSTITUTIONAL: No apparent distress. HEENT: Head is normocephalic. Pupils are equal, round. Sclerae anicteric. Mucous membranes of the mouth are moist. No JVD. No carotid bruit. CHEST EXAMINATION: +mild crackles, No chest wall tenderness is noted on palpation or with deep breathing. HEART EXAMINATION: Regular rate and rhythm. S1, S2 heard. No murmurs, gallops or rub. ABDOMEN: Soft, nontender. Positive bowel sounds. EXTREMITIES: 2+ peripheral pulses, 2+ lower extremity edema and no calf tenderness. NEUROLOGIC EXAMINATION: Patient is awake, alert and oriented x3. ASSESSMENT 1. Acute on chronic heart failure, unclear systolic or diastolic, echo pending 2. Coronary artery disease status post recent STEMI with residual circumflex disease 3. Hypertension 4. Diabetes mellitus type 2 5. Dyspnea also possibility of related to Brillinta 6. Chronic kidney disease PLAN Patient with symptoms of heart failure and still has significant lower extremity edema and mild crackles. Troponin likely still elevated from previous ME and we will check repeat to ensure downtrending. Not having any significant angina- type symptoms. Contie with IV Lasix and optimize heart failure regimen as able. Would discontinue Actos on discharge as this can cause worsened heart failure. Possible staged PCI this hospitalization pending kidney function. May also consider changing Brilinta however majority of patient's symptoms appear related to heart failure currently. Past Medical History Past Medical History: Coronary Artery Disease (CAD), Chest Pain / Angina, Diabetes Mellitus, Hyperlipidemia, Hypertension, Myocardial Infarction (ME) Last Myocardial Infarction Date:: 11/26/2021 History of Any Multi-Drug Resistant Organisms: None Reported Past Surgical History: Heart Catheterization With Stent, Orthopedic Surgery, Tonsillectomy Additional Past Surgical History / Comment(s): kidney stone surgery x2, hemrrhoid surgery, right elbow surgery Past Anesthesia/Blood Transfusion Reactions: No Reported Reaction Date of Last Stent Placement:: 11/26/2021 Past Psychological History: No Psychological Hx Reported Smoking Status: Former smoker Past Alcohol Use History: None Reported Past Drug Use History: None Reported - Past Family History Father Family Medical History: CVA/TIA, Dementia Additional Family Medical History / Comment(s): passed way at 63 Mother Family Medical History: Congestive Heart Failure (CHF) Additional Family Medical History / Comment(s): at 96 from covid and chf Medications and Allergies Home Medications Medication Instructions Recorded Confirmed Type Dulaglutide [Trulicity] 3 mg SQ MO 11/26/21 11/30/21 History Empagliflozin [Jardiance] 10 mg PO DAILY 11/26/21 11/30/21 History Fenofibrate,Micronized 200 mg PO HS 11/26/21 11/30/21 History Insulin Lispro Protamin/Lispro 34 units SQ AC-BID 11/26/21 11/30/21 History [humaLOG Mix 50-50 Kwikpen] Pioglitazone [Actos] 30 mg PO DAILY 11/26/21 11/30/21 History metFORMIN HCL ER [Glucophage XR] 500 mg PO BID 11/26/21 11/30/21 History Aspirin EC [Ecotrin Low Dose] 81 mg PO DAILY #30 tab 11/29/21 11/30/21 Rx Losartan [Cozaar] 25 mg PO DAILY #30 tab 11/29/21 11/30/21 Rx Metoprolol Tartrate [Lopressor] 25 mg PO BID #60 tab 11/29/21 11/30/21 Rx Nitroglycerin Sl Tabs [Nitrostat] 0.4 mg SUBLINGUAL Q5M PRN #14 tab 11/29/21 11/30/21 Rx Ticagrelor [Brilinta] 90 mg PO BID #60 tab 11/29/21 11/30/21 Rx Atorvastatin [Lipitor] 80 mg PO HS 11/30/21 11/30/21 History Allergies Allergy/AdvReac Type Severity Reaction Status Date / Time No Known Allergies Allergy Verified 11/30/21 12:40 Physical Exam Vitals: Vital Signs Temp Pulse Pulse Resp BP BP Pulse Ox 11/30/21 12:30 98.3 F 96 18 94/63 98 11/30/21 06:56 98.0 F 72 18 104/65 95 11/30/21 05:32 85 16 98/64 95 11/30/21 01:43 97.8 F 77 19 130/81 97 Intake and Output 11/29/21 11/30/21 11/30/21 22:59 06:59 14:59 Other: Weight 140.614 kg Results 11/30/21 02:29 11/30/21 02:29 Cardiac Enzymes 11/30/21 11/30/21 Range/Units 02:29 02:29 AST 78 H (17-59) U/L Troponin I 8.010 H* (0.000-0.034) ng/mL Coagulation 11/30/21 Range/Units 02:29 PT 10.9 (9.0-12.0) sec APTT 22.8 (22.0-30.0) sec CBC 11/30/21 Range/Units 02:29 WBC 5.7 (3.8-10.6) k/uL RBC 5.31 (4.30-5.90) m/uL Hgb 14.9 (13.0-17.5) gm/dL Hct 47.1 (39.0-53.0) % Plt Count 201 (150-450) k/uL Comprehensive Metabolic Panel 11/30/21 Range/Units 02:29 Sodium 136 L (137-145) mmol/L Potassium 3.9 (3.5-5.1) mmol/L Chloride 105 (98-107) mmol/L Carbon Dioxide 23 (22-30) mmol/L BUN 22 H (9-20) mg/dL Creatinine 1.42 H (0.66-1.25) mg/dL Glucose 136 H (74-99) mg/dL Calcium 8.8 (8.4-10.2) mg/dL AST 78 H (17-59) U/L ALT 54 H (4-49) U/L Alkaline Phosphatase 53 (38-126) U/L Total Protein 6.6 (6.3-8.2) g/dL Albumin 3.9 (3.5-5.0) g/dL Current Medications Generic Name Dose Route Start Last Admin Trade Name Freq PRN Reason Stop Dose Admin Aspirin 81 mg 12/01/21 09:00 Aspirin 81 Mg PO DAILY SHIRLEY Atorvastatin Calcium 80 mg 11/30/21 21:00 Atorvastatin 80 Mg Tab PO HS SHIRLEY Fenofibrate 160 mg 11/30/21 21:00 Fenofibrate 160 Mg Tab PO HS SHIRLEY Furosemide 40 mg 11/30/21 07:00 11/30/21 06:42 Furosemide 10 Mg/Ml 4 Ml Vial IV 40 mg Q12H SHIRLEY Administration Insulin Aspart 0 unit 11/30/21 17:30 Insulin Aspart (Novolog) 100 Unit/Ml Vial SQ AC-SUPPER [facility] Protocol Losartan Potassium 25 mg 12/01/21 09:00 Losartan 25 Mg Tab PO DAILY [facility] Metoprolol Tartrate 25 mg 11/30/21 21:00 Metoprolol Tartrate 25 Mg Tab PO BID [facility] Nitroglycerin 0.5 inch 11/30/21 09:00 11/30/21 12:53 Nitroglycerin Oint 1 Inch/Gm Packet TOPICAL Not Given QID [facility] Ticagrelor 90 mg 11/30/21 21:00 Ticagrelor 90 Mg Tab PO BID [facility] Intake and Output 11/29/21 11/30/21 11/30/21 22:59 06:59 14:59 Other: Weight 140.614 kg 11/30/21 02:29 11/30/21 02:29
[2021-11-30 16:45] LABS: Glucose,Whole Blood 233 mg/dL (75-99)
[2021-11-30] MEDS ORDERED: INSULIN ASPART (NovoLOG) 100 UNIT/ML VIAL SQ SCH (17:30)
[2021-11-30 20:03] LABS: Glucose,Whole Blood 200 mg/dL (75-99)
[2021-11-30] MEDS: ZOLPIDEM 5 MG TAB PO PRN (21:10)
[2021-11-30] MEDS: METOPROLOL TARTRATE 25 MG TAB PO SCH (21:10)
[2021-11-30] MEDS: TICAGRELOR 90 MG TAB PO SCH (21:10)
[2021-11-30] MEDS: ATORVASTATIN 80 MG TAB PO SCH (21:11)
[2021-11-30] MEDS: FENOFIBRATE 160 MG TAB PO SCH (21:11)
[2021-12-01 05:03] LABS: Glucose,Whole Blood 182 mg/dL (75-99)
[2021-12-01] MEDS: FUROSEMIDE 10 MG/ML 4 ML VIAL IV SCH ×2 (06:13→16:29)
[2021-12-01] MEDS: LOSARTAN 25 MG TAB PO SCH (08:27)
[2021-12-01] MEDS: METOPROLOL TARTRATE 25 MG TAB PO SCH ×2 (08:27→20:50)
[2021-12-01] MEDS: NITROGLYCERIN OINT 1 INCH/GM PACKET TOPICAL SCH ×2 (08:27→11:38)
[2021-12-01] MEDS: TICAGRELOR 90 MG TAB PO SCH ×2 (08:27→20:50)
[2021-12-01] MEDS: ASPIRIN 81 MG PO SCH (08:27)
[2021-12-01 08:41] LABS: Basophils # (A) 0.1 k/uL (0-0.2); Basophils % (A) 1 %; Eosinophils # (A) 0.1 k/uL (0-0.7); Eosinophils % (A) 2 %; HCT 50.2 % (39.0-53.0); HGB 16.1 gm/dL (13.0-17.5); Lymphocytes % (A) 17 %; MCH 28.7 pg (25.0-35.0); MCV 89.6 fL (80.0-100.0); Mean Platelet Volume 8.8; Monocytes # (A) 0.7 k/uL (0-1.0); Monocytes % (A) 13 %; Neutrophils # (A) 3.6 k/uL (1.3-7.7); Neutrophils % (A) 64 %; Platelet Count 205 k/uL (150-450); RDW 14.3 % (11.5-15.5); WBC 5.5 k/uL (3.8-10.6)
[2021-12-01] MEDS ORDERED: ASPIRIN 325 MG TAB PO SCH (09:00)
[2021-12-01 10:04] LABS: Glucose,Whole Blood 290 mg/dL (75-99)
[2021-12-01] MEDS: INSULIN ASPART (NovoLOG) 100 UNIT/ML VIAL SQ SCH ×4 (10:04→20:51)
[2021-12-01 11:26] LABS: Glucose,Whole Blood 240 mg/dL (75-99)
--- NOTE | 2021-12-01 11:42 | P.PN ---
Subjective Patient was examined at bedside today not complaining of any new symptomatology. He does endorse some shortness of breath especially at nighttime and wakes him up. He also does have some pitting edema in his lower extremities. Patient denies having a diagnosis sleep apnea daily get a sleep study done in the past states that the physician told him that he can use a CPAP machine at his discretion. Objective - Vital Signs Vital signs: Vital Signs Temp 97.2 F L 12/01/21 08:28 Pulse 110 H 12/01/21 08:28 Resp 18 12/01/21 08:28 BP 125/68 12/01/21 08:28 Pulse Ox 95 12/01/21 08:28 Intake & Output 11/30/21 12/01/21 12/01/21 18:59 06:59 18:59 Intake Total 214 180 Output Total 1200 Balance 214 -1020 Weight 138.9 kg Intake: Oral 214 180 Output: Urine 1200 Other: Voiding Method Urinal Urinal Urinal # Voids 4 - Exam General: [non toxic], [no distress], [appears at stated age] Derm: [warm], [dry] Head: [atraumatic], [normocephalic], [symmetric] Eyes: [EOMI], [no lid lag], [anicteric sclera] Mouth: [no lip lesion], [mucus membranes moist] Cardiovascular: [S1S2 reg], [no murmur], [positive posterior tibial pulse bilateral], Lungs: [Decreased breath sounds bilateral], [no rhonchi, no rales] , [no accessory muscle use] Abdominal: [soft], [ nontender to palpation], [no guarding], [no appreciable organomegaly] Ext: [no gross muscle atrophy], [1+ pitting bilateral lower extremity edema], [no contractures] Neuro: [ CN II-XI grossly intact], [no focal neuro deficits] Psych: [Alert], [oriented], [appropriate affect] - Labs CBC & Chem 7: 12/01/21 08:14 12/01/21 08:14 Labs: Abnormal Lab Results - Last 24 Hours (Table) 11/30/21 11/30/21 11/30/21 Range/Units 11:52 14:14 16:18 Sodium (137-145) mmol/L Chloride (98-107) mmol/L BUN (9-20) mg/dL Creatinine (0.66-1.25) mg/dL Glucose (74-99) mg/dL POC Glucose (mg/dL) 166 H 233 H (75-99) mg/dL Hemoglobin A1c (0.0-6.0) % Troponin I 5.250 H* (0.000-0.034) ng/mL 11/30/21 12/01/21 12/01/21 Range/Units 20:02 05:02 08:14 Sodium 135 L (137-145) mmol/L Chloride 97 L (98-107) mmol/L BUN 27 H (9-20) mg/dL Creatinine 1.46 H (0.66-1.25) mg/dL Glucose 315 H (74-99) mg/dL POC Glucose (mg/dL) 200 H 182 H (75-99) mg/dL Hemoglobin A1c (0.0-6.0) % Troponin I (0.000-0.034) ng/mL 12/01/21 12/01/21 12/01/21 Range/Units 08:14 10:03 11:24 Sodium (137-145) mmol/L Chloride (98-107) mmol/L BUN (9-20) mg/dL Creatinine (0.66-1.25) mg/dL Glucose (74-99) mg/dL POC Glucose (mg/dL) 290 H 240 H (75-99) mg/dL Hemoglobin A1c 7.5 H (0.0-6.0) % Troponin I (0.000-0.034) ng/mL Assessment and Plan Assessment: Assessment: #Mild CHF exacerbation #Elevated troponin with recent history of STEMI and PCI of the RCA #Acute kidney injury on CKD #Transaminitis #Chronic conditions: hypertension, hyperlipidemia #Diabetes mellitus type 2 hemoglobin A1c 7.5 Plan: -Admit to medicine for close monitoring -Aspiration/fall precaution -Continue Lasix 40 mg twice a day -Strict input/output, low-sodium diet, fluid restrict to less than 1.4 L -Cardiology on board continue to follow recommendations -We'll resume home medication including insulin hold oral anti-glycemic agents. Hemoglobin A1c 7.5 -DVT prophylaxis heparin 3 times a day
--- NOTE | 2021-12-01 13:47 | P.PN ---
Subjective Progress Note Date: 12/01/21 HISTORY OF PRESENTING ILLNESS Patient is pleasant 66-year-old male with history of diabetes mellitus type 2, hypertension, hyperlipidemia, coronary artery disease status post STEMI 11/26/2021 with inferior [place] and PCI of RCA with residual OM disease, congestive heart failure, hyperlipidemia. He recently presented 11/26/2021 with symptoms of chest pain and heartburn sensation and was found to have inferior ST elevation. He was hypotensive at the time and placed on pressors and emergency heart catheterization performed with PCI of the RCA. He was noted to have residual OM disease. His pressors were weaned and he was placed on Lopressor 25 twice a day, losartan as well as dual antiplatelets. He was monitored in the hospital and discharged home yesterday. Unfortunately towards end of the day he was noticing increased lower extremity edema and orthopnea and therefore came back to emergency department. He denies any further chest pain or heartburn sensation. He denies missing any of his medications. He shows normal sinus rhythm with minimal ST elevation inferiorly with T-wave inversion improved from previous. Troponin noted to be elevated at 8 however repeat troponins not drawn and likely on the downtrend from prior myocardial infarction. Echocardiogram had been performed last hospitalization however not transferred over from medical record. 12/01/2021 Patient examined this morning at the bedside. He denies chest pain or pressure. He reports improvement in his shortness of breath. He denies shortness of breath at the time of my examination was sitting on the side of the bed. He does report having shortness of breath when he is laying flat in bed. Patient remains on IV Lasix 40 mg every 12 hours. BUN 27. Creatinine 1.46. Vital signs are stable. Blood pressure 114/68. PHYSICAL EXAMINATION Vital signs reviewed. CONSTITUTIONAL: No apparent distress. HEENT: Head is normocephalic. Pupils are equal, round. Sclerae anicteric. Mucous membranes of the mouth are moist. No JVD. No carotid bruit. CHEST EXAMINATION: Lungs diminished bilaterally, No chest wall tenderness is noted on palpation or with deep breathing. HEART EXAMINATION: Regular rate and rhythm. S1, S2 heard. No murmurs, gallops or rub. ABDOMEN: Soft, nontender. Positive bowel sounds. EXTREMITIES: 2+ peripheral pulses, 2+ lower extremity edema and no calf tenderness. NEUROLOGIC EXAMINATION: Patient is awake, alert and oriented x3. ASSESSMENT 1. Acute on chronic heart failure, unclear systolic or diastolic, echo pending 2. Coronary artery disease status post recent STEMI with residual circumflex disease 3. Hypertension 4. Diabetes mellitus type 2 5. Dyspnea also possibility of related to Brillinta 6. Chronic kidney disease PLAN Continue current cardiac medications Continue IV Lasix Daily weights Accurate I&O Monitor kidney function 2-D echo ordered. Await results Possible staged PCI this hospitalization pending kidney function Further recommendations pending patient course Nurse practitioner note has been reviewed by physician. Signing provider agrees with the documented findings, assessment, and plan of care. Objective - Vital Signs Vital signs: Vital Signs Temp 97.2 F L 12/01/21 08:28 Pulse 73 12/01/21 11:37 Resp 18 12/01/21 11:37 BP 114/68 12/01/21 11:37 Pulse Ox 95 12/01/21 11:37 Intake & Output 11/30/21 12/01/21 12/01/21 18:59 06:59 18:59 Intake Total 214 360 Output Total 1200 Balance 214 -840 Weight 138.9 kg Intake: Oral 214 360 Output: Urine 1200 Other: Voiding Method Urinal Urinal Urinal # Voids 4 - Labs CBC & Chem 7: 12/01/21 08:14 12/01/21 08:14 Labs: Abnormal Lab Results - Last 24 Hours (Table) 11/30/21 11/30/21 11/30/21 Range/Units 14:14 16:18 20:02 Sodium (137-145) mmol/L Chloride (98-107) mmol/L BUN (9-20) mg/dL Creatinine (0.66-1.25) mg/dL Glucose (74-99) mg/dL POC Glucose (mg/dL) 233 H 200 H (75-99) mg/dL Hemoglobin A1c (0.0-6.0) % Troponin I 5.250 H* (0.000-0.034) ng/mL 12/01/21 12/01/21 12/01/21 Range/Units 05:02 08:14 08:14 Sodium 135 L (137-145) mmol/L Chloride 97 L (98-107) mmol/L BUN 27 H (9-20) mg/dL Creatinine 1.46 H (0.66-1.25) mg/dL Glucose 315 H (74-99) mg/dL POC Glucose (mg/dL) 182 H (75-99) mg/dL Hemoglobin A1c 7.5 H (0.0-6.0) % Troponin I (0.000-0.034) ng/mL 12/01/21 12/01/21 Range/Units 10:03 11:24 Sodium (137-145) mmol/L Chloride (98-107) mmol/L BUN (9-20) mg/dL Creatinine (0.66-1.25) mg/dL Glucose (74-99) mg/dL POC Glucose (mg/dL) 290 H 240 H (75-99) mg/dL Hemoglobin A1c (0.0-6.0) % Troponin I (0.000-0.034) ng/mL
[2021-12-01] MEDS ORDERED: FLUTICASONE 50MCG/SPRAY NASAL 16GM EA NOSTRIL PRN (14:01)
[2021-12-01 14:04] VITALS: BMI 43.9
[2021-12-01 16:12] LABS: Glucose,Whole Blood 162 mg/dL (75-99)
[2021-12-01] MEDS: HEPARIN SODIUM,PORCINE/PF 5,000 UNIT/0.5 ML SYRINGE SQ SCH (16:29)
[2021-12-01 20:15] LABS: Glucose,Whole Blood 256 mg/dL (75-99)
[2021-12-01] MEDS: ATORVASTATIN 80 MG TAB PO SCH (20:50)
[2021-12-01] MEDS: FENOFIBRATE 160 MG TAB PO SCH (20:51)
[2021-12-01] MEDS: ZOLPIDEM 5 MG TAB PO PRN (20:55)
[2021-12-02] MEDS: HEPARIN SODIUM,PORCINE/PF 5,000 UNIT/0.5 ML SYRINGE SQ SCH ×4 (00:09→23:59)
[2021-12-02 06:07] LABS: Glucose,Whole Blood 188 mg/dL (75-99)
[2021-12-02] MEDS: INSULIN ASPART (NovoLOG) 100 UNIT/ML VIAL SQ SCH ×4 (06:43→20:38)
[2021-12-02] MEDS: FUROSEMIDE 10 MG/ML 4 ML VIAL IV SCH ×2 (06:43→16:42)
[2021-12-02] MEDS: ASPIRIN 81 MG PO SCH (08:02)
[2021-12-02] MEDS: TICAGRELOR 90 MG TAB PO SCH ×2 (08:02→20:37)
[2021-12-02] MEDS: METOPROLOL TARTRATE 25 MG TAB PO SCH ×2 (08:02→20:36)
[2021-12-02] MEDS: LOSARTAN 25 MG TAB PO SCH (08:02)
--- NOTE | 2021-12-02 09:08 | CA ---
Transthoracic Echo Report Name: Rio Majano Age: 66 Gender: M : 1955 Exam Date: 12/01/2021 10:31 Exam Location: [facility] Ht (in): 70 Wt (lb): 306 Ordering Physician: Neha Ye Attending/Referring Phys: [id number], Ephraim Carboy Filler Key Harper, ANDREW Procedure CPT: Indications: LV function Cardiac Hx: Technical Quality: Technically difficult study Contrast 1: Lumason Total Dose (mL): 3 Contrast 2: Total Dose (mL): MEASUREMENTS (Male / Female) Normal Values 2D ECHO LV Diastolic Diameter PLAX 5.3 cm 4.2 - 5.9 / 3.9 - 5.3 cm LV Systolic Diameter PLAX 4.4 cm IVS Diastolic Thickness 1.5 cm 0.6 - 1.0 / 0.6 - 0.9 cm LVPW Diastolic Thickness 1.5 cm 0.6 - 1.0 / 0.6 - 0.9 cm LV Relative Wall Thickness 0.6 RV Internal Dim ED PLAX 3.0 cm LA Systolic Diameter LX 3.9 cm 3.0 - 4.0 / 2.7 - 3.8 cm M-MODE Aortic Root Diameter MM 3.6 cm MV E Point Septal Separation 1.6 cm AV Cusp Separation MM 2.3 cm DOPPLER AV Peak Velocity 87.8 cm/s AV Peak Gradient 3.1 mmHg MV Area PHT 3.2 cm??? Mitral E Point Velocity 55.2 cm/s Mitral A Point Velocity 89.9 cm/s Mitral E to A Ratio 0.6 MV Deceleration Time 235.7 ms MV E' Velocity 3.1 cm/s Mitral E to MV E' Ratio 18.0 TR Peak Velocity 225.7 cm/s TR Peak Gradient 20.4 mmHg Right Ventricular Systolic Press 24.7 mmHg FINDINGS Left Ventricle Left ventricular ejection fraction is estimated at 40-45 %. Left ventricular cavity size normal. Severe concentric left ventricular hypertrophy. Infero basel hypokinesis Right Ventricle Normal right ventricular size and function. Right ventricular systolic pressure within normal limits. Right Atrium Normal right atrial size. Left Atrium Normal left atrial size. Mitral Valve Structurally normal mitral valve. Aortic Valve Trileaflet aortic valve. No aortic valve stenosis or regurgitation. Tricuspid Valve Mild tricuspid regurgitation. Pulmonic Valve Pulmonic valve not well visualized. Pericardium Normal pericardium. Aorta Normal size aortic root and proximal ascending aorta. CONCLUSIONS Technically difficult study for interpretation Impaired LV function with EF between 40-45% Concentric left ventricular hypertrophy See above for more details Previewed by: Dr. Smith Ross MD (Electronically Signed) Final Date: 02 Dec 2021 09:07
[2021-12-02 11:17] LABS: Calcium 8.9 mg/dL (8.4-10.2); Potassium 4.4 mmol/L (3.5-5.1)
[2021-12-02 11:35] LABS: Basophils # (A) 0.1 k/uL (0-0.2); Basophils % (A) 1 %; Eosinophils # (A) 0.1 k/uL (0-0.7); Eosinophils % (A) 2 %; HCT 47.9 % (39.0-53.0); HGB 15.1 gm/dL (13.0-17.5); Lymphocytes # (A) 0.9 k/uL (1.0-4.8); Lymphocytes % (A) 14 %; MCH 28.7 pg (25.0-35.0); MCHC 31.6 g/dL (31.0-37.0); MCV 90.9 fL (80.0-100.0); Mean Platelet Volume 9.1; Monocytes # (A) 0.8 k/uL (0-1.0); Monocytes % (A) 13 %; Neutrophils # (A) 4.1 k/uL (1.3-7.7); Neutrophils % (A) 66 %; Platelet Count 173 k/uL (150-450); RBC 5.27 m/uL (4.30-5.90); RDW 14.3 % (11.5-15.5); WBC 6.2 k/uL (3.8-10.6)
[2021-12-02 11:53] LABS: Glucose,Whole Blood 252 mg/dL (75-99)
--- NOTE | 2021-12-02 11:56 | P.PN ---
Subjective Progress Note Date: 12/02/21 HISTORY OF PRESENTING ILLNESS Patient is pleasant 66-year-old male with history of diabetes mellitus type 2, hypertension, hyperlipidemia, coronary artery disease status post STEMI 11/26/2021 with inferior [place] and PCI of RCA with residual OM disease, congestive heart failure, hyperlipidemia. He recently presented 11/26/2021 with symptoms of chest pain and heartburn sensation and was found to have inferior ST elevation. He was hypotensive at the time and placed on pressors and emergency heart catheterization performed with PCI of the RCA. He was noted to have residual OM disease. His pressors were weaned and he was placed on Lopressor 25 twice a day, losartan as well as dual antiplatelets. He was monitored in the hospital and discharged home yesterday. Unfortunately towards end of the day he was noticing increased lower extremity edema and orthopnea and therefore came back to emergency department. He denies any further chest pain or heartburn sensation. He denies missing any of his medications. He shows normal sinus rhythm with minimal ST elevation inferiorly with T-wave inversion improved from previous. Troponin noted to be elevated at 8 however repeat troponins not drawn and likely on the downtrend from prior myocardial infarction. Echocardiogram had been performed last hospitalization however not transferred over from medical record. 12/01/2021 Patient examined this morning at the bedside. He denies chest pain or pressure. He reports improvement in his shortness of breath. He denies shortness of breath at the time of my examination was sitting on the side of the bed. He does report having shortness of breath when he is laying flat in bed. Patient remains on IV Lasix 40 mg every 12 hours. BUN 27. Creatinine 1.46. Vital signs are stable. Blood pressure 114/68. 12/02/2021 Patient examined this morning at the bedside. Patient denies chest pain or pressure. He continues to report improvement in his SOB. He states he is able to lay flat in bed with less difficulty in breathing. He reports improvement in his lower extremity edema. He remains on IV lasix. Creatinine today is 1.48. Blood pressure 111/74. Fluid balance over the last 24 hours is -1520 mL. Echocardiogram completed revealing ejection fraction 40-45%, severe LVH, inferior basal hypokinesis, and mild TR. PHYSICAL EXAMINATION Vital signs reviewed. CONSTITUTIONAL: No apparent distress. HEENT: Head is normocephalic. Pupils are equal, round. Sclerae anicteric. Mucous membranes of the mouth are moist. No JVD. No carotid bruit. CHEST EXAMINATION: Lungs diminished bilaterally, No chest wall tenderness is noted on palpation or with deep breathing. HEART EXAMINATION: Regular rate and rhythm. S1, S2 heard. No murmurs, gallops or rub. ABDOMEN: Soft, nontender. Positive bowel sounds. EXTREMITIES: 2+ peripheral pulses, 1+ lower extremity edema and no calf tenderness. NEUROLOGIC EXAMINATION: Patient is awake, alert and oriented x3. ASSESSMENT 1. Acute on chronic heart failure with reduced ejection fraction, ejection fraction 40-45% 2. Coronary artery disease status post recent STEMI with residual circumflex disease 3. Hypertension 4. Diabetes mellitus type 2 5. Dyspnea also possibility of related to Brillinta 6. Chronic kidney disease PLAN Continue current cardiac medications Continue IV Lasix Daily weights Accurate I&O Monitor kidney function Possible staged PCI this hospitalization pending kidney function Further recommendations pending patient course Nurse practitioner note has been reviewed by physician. Signing provider agrees with the documented findings, assessment, and plan of care. Objective - Vital Signs Vital signs: Vital Signs Temp 97.6 F 12/02/21 07:58 Pulse 95 12/02/21 07:58 Resp 18 12/02/21 07:58 BP 111/74 12/02/21 07:58 Pulse Ox 98 12/02/21 07:58 Intake & Output 12/01/21 12/02/21 12/02/21 18:59 06:59 18:59 Intake Total 540 540 10 Output Total 1900 700 Balance -1360 -160 10 Weight 138.9 kg 139.3 kg Intake: IV 10 Invasive Line 1 10 Oral 540 540 Output: Urine 1900 700 Other: Voiding Method Urinal Urinal Urinal # Voids 4 - Labs CBC & Chem 7: 12/02/21 09:29 12/02/21 09:29 Labs: Abnormal Lab Results - Last 24 Hours (Table) 12/01/21 12/01/21 12/02/21 Range/Units 16:10 20:11 05:43 Lymphocytes # (1.0-4.8) k/uL Sodium (137-145) mmol/L BUN (9-20) mg/dL Creatinine (0.66-1.25) mg/dL Glucose (74-99) mg/dL POC Glucose (mg/dL) 162 H 256 H 188 H (75-99) mg/dL 12/02/21 12/02/21 Range/Units 09:29 09:29 Lymphocytes # 0.9 L (1.0-4.8) k/uL Sodium 135 L (137-145) mmol/L BUN 33 H (9-20) mg/dL Creatinine 1.48 H (0.66-1.25) mg/dL Glucose 263 H (74-99) mg/dL POC Glucose (mg/dL) (75-99) mg/dL
--- NOTE | 2021-12-02 15:36 | CDI ---
Documentation Clarification Form Date: 12/02/2021 03:25:33 PM From: Yvonne De La Paz CCS, CCDS Admit Date: 12/01/2021 12:02:00 PM Patient Name: Rio Majano Visit Number: [id number] Discharge Date: ATTENTION: The Clinical Documentation Specialists (CDI) and [facility] Coding Staff appreciate your assistance in clarifying documentation. Please respond to the clarification below the line at the bottom and electronically sign. The CDI & [facility] Coding staff will review the response and follow-up if needed. Please note: Queries are made part of the Legal Health Record. If you have any questions, please contact the author of this message via ITS. Dr. Miah Angel: CKD without further specificity is documented in the 11/30 History & Physical, the 11/30 Cardiology Consult and in subsequent Progress Notes on 12/01 & 12/02. Additional clarification regarding the stage of CKD is requested. History/Risk Factors per the 11/30 H/P: IDDM II, Hypertension, Hyperlipidemia, CKD nos, [place] 11/26/2021, Kidney stone status post surgery, Former smoker. Clinical Indicators: Presented to the ED on 11/30 with SOB, admit with Difficulty Breathing. LAB: 11/30 BUN: 22. 5: 27. 5/: 33 11/30 Creatinine: 1.42. 12/01: 1.46. 12/02: 1.48 11/30 GFR 51. 5/16: 49. 5/: 49. Historical GFR: 11/26/21: 39. 5/12: 57. 5: 50. 5/: 62. Treatment 11/30: Blood glucose monitoring, Telemetry, Daily weights, CHF protocol, I&Os, Castro catheter, O2 2Lnc, IV Lasix 20 mg x1, Nitro-bid 0.5 in x1, IV Ativan 1 mg x1. Admit to OBSERVATION 12/01 Inpatient Admission: po Aspirin 81 mg Daily, po Cozaar 25 mg Daily, Insulin sq jose, Heparin 5,000 units sq. Nephrology is not consulted. Please clarify the stage of the CKD, if known: [ ] CKD Stage 2 (GFR 60-89) [ y ] CKD Stage 3 (GFR 30-59) [ ] CKD Stage 3a (GFR 45-59) [ ] CKD Stage 3b (GFR 30-44) [ ] CKD Stage 4 (GFR 15-29) [ ] Other, please specify [ ] Unable to determine (Template Last revised: August 2020) MTDD
--- NOTE | 2021-12-02 16:17 | P.PN ---
Subjective Patient was examined at bedside today not complaining of any new symptomatology. He denies any active chest pain, shortness of breath or palpitations. He is currently nothing by mouth for possible staged PCI pending further recommendations from cardiology. Family present at bedside all questions have been answered. Objective - Vital Signs Vital signs: Vital Signs Temp 97.4 F L 12/02/21 15:35 Pulse 86 12/02/21 15:35 Resp 20 12/02/21 15:35 BP 110/65 12/02/21 15:35 Pulse Ox 97 12/02/21 15:35 Intake & Output 12/01/21 12/02/21 12/02/21 18:59 06:59 18:59 Intake Total 540 540 10 Output Total 1900 700 Balance -1360 -160 10 Weight 138.9 kg 139.3 kg Intake: IV 10 Invasive Line 1 10 Oral 540 540 Output: Urine 1900 700 Other: Voiding Method Urinal Urinal Urinal # Voids 4 - Exam General: [non toxic], [no distress], [appears at stated age] Derm: [warm], [dry] Head: [atraumatic], [normocephalic], [symmetric] Eyes: [EOMI], [no lid lag], [anicteric sclera] Mouth: [no lip lesion], [mucus membranes moist] Cardiovascular: [S1S2 reg], [no murmur], [positive posterior tibial pulse bilateral], Lungs: [Decreased breath sounds bilateral], [no rhonchi, no rales] , [no accessory muscle use] Abdominal: [soft], [ nontender to palpation], [no guarding], [no appreciable organomegaly] Ext: [no gross muscle atrophy], [1+ pitting bilateral lower extremity edema], [ no contractures] Neuro: [ CN II-XI grossly intact], [no focal neuro deficits] Psych: [Alert], [oriented], [appropriate affect] - Labs CBC & Chem 7: 12/02/21 09:29 12/02/21 09:29 Labs: Abnormal Lab Results - Last 24 Hours (Table) 12/01/21 12/02/21 12/02/21 Range/Units 20:11 05:43 09:29 Lymphocytes # 0.9 L (1.0-4.8) k/uL Sodium (137-145) mmol/L BUN (9-20) mg/dL Creatinine (0.66-1.25) mg/dL Glucose (74-99) mg/dL POC Glucose (mg/dL) 256 H 188 H (75-99) mg/dL 12/02/21 12/02/21 Range/Units 09:29 11:52 Lymphocytes # (1.0-4.8) k/uL Sodium 135 L (137-145) mmol/L BUN 33 H (9-20) mg/dL Creatinine 1.48 H (0.66-1.25) mg/dL Glucose 263 H (74-99) mg/dL POC Glucose (mg/dL) 252 H (75-99) mg/dL Assessment and Plan Assessment: Assessment: #Mild CHF exacerbation #Elevated troponin with recent history of STEMI and PCI of the RCA #Acute kidney injury on CKD #Transaminitis #Chronic conditions: hypertension, hyperlipidemia #Diabetes mellitus type 2 hemoglobin A1c 7.5 #Obesity stage III Plan: -Admit to medicine for close monitoring -Aspiration/fall precaution -Continue Lasix 40 mg twice a day -Strict input/output, low-sodium diet, fluid restrict to less than 1.4 L -2-D echocardiogram reviewed showing inferobasal hypokinesis ejection fraction 40-45% -Anticipating stage PCI with cardiology either today or tomorrow. -Cardiology on board continue to follow recommendations -We'll resume home medication including insulin hold oral anti-glycemic agents. Hemoglobin A1c 7.5 -DVT prophylaxis heparin 3 times a day
[2021-12-02 16:23] LABS: Glucose,Whole Blood 255 mg/dL (75-99)
[2021-12-02] MEDS: ATORVASTATIN 80 MG TAB PO SCH (20:36)
[2021-12-02] MEDS: FENOFIBRATE 160 MG TAB PO SCH (20:36)
[2021-12-02] MEDS: ACETAMINOPHEN TAB 500 MG TAB PO PRN (20:37)
[2021-12-02 21:06] LABS: Glucose,Whole Blood 231 mg/dL (75-99)
[2021-12-02] MEDS: ZOLPIDEM 5 MG TAB PO PRN (21:38)
[2021-12-03 06:11] LABS: Glucose,Whole Blood 202 mg/dL (75-99)
[2021-12-03] MEDS: FUROSEMIDE 10 MG/ML 4 ML VIAL IV SCH ×2 (06:40→20:33)
[2021-12-03] MEDS: INSULIN ASPART (NovoLOG) 100 UNIT/ML VIAL SQ SCH ×4 (06:42→21:29)
[2021-12-03 08:18] LABS: Basophils % (A) 1 %; Eosinophils # (A) 0.1 k/uL (0-0.7); Eosinophils % (A) 3 %; HCT 48.7 % (39.0-53.0); HGB 15.8 gm/dL (13.0-17.5); Lymphocytes # (A) 1.2 k/uL (1.0-4.8); Lymphocytes % (A) 27 %; MCHC 32.4 g/dL (31.0-37.0); MCV 89.4 fL (80.0-100.0); Mean Platelet Volume 8.7; Monocytes # (A) 0.4 k/uL (0-1.0); Monocytes % (A) 10 %; Neutrophils # (A) 2.4 k/uL (1.3-7.7); Neutrophils % (A) 55 %; Platelet Count 196 k/uL (150-450); RBC 5.44 m/uL (4.30-5.90); RDW 14.6 % (11.5-15.5); WBC 4.4 k/uL (3.8-10.6)
[2021-12-03] MEDS: ASPIRIN 81 MG PO SCH (08:25)
[2021-12-03] MEDS: METOPROLOL TARTRATE 25 MG TAB PO SCH ×2 (08:25→20:39)
[2021-12-03] MEDS: TICAGRELOR 90 MG TAB PO SCH ×2 (08:25→20:39)
[2021-12-03] MEDS: LOSARTAN 25 MG TAB PO SCH (08:25)
[2021-12-03 08:26] LABS: Calcium 8.9 mg/dL (8.4-10.2); Potassium 4.2 mmol/L (3.5-5.1)
[2021-12-03] MEDS: HEPARIN SODIUM,PORCINE/PF 5,000 UNIT/0.5 ML SYRINGE SQ SCH ×2 (08:29→17:43)
--- NOTE | 2021-12-03 10:06 | P.PN ---
Subjective Progress Note Date: 12/03/21 HISTORY OF PRESENTING ILLNESS Patient is pleasant 66-year-old male with history of diabetes mellitus type 2, hypertension, hyperlipidemia, coronary artery disease status post STEMI 11/26/2021 with inferior ND and PCI of RCA with residual OM disease, congestive heart failure, hyperlipidemia. He recently presented 11/26/2021 with symptoms of chest pain and heartburn sensation and was found to have inferior ST elevation. He was hypotensive at the time and placed on pressors and emergency heart catheterization performed with PCI of the RCA. He was noted to have residual OM disease. His pressors were weaned and he was placed on Lopressor 25 twice a day, losartan as well as dual antiplatelets. He was monitored in the hospital and discharged home yesterday. Unfortunately towards end of the day he was noticing increased lower extremity edema and orthopnea and therefore came back to emergency department. He denies any further chest pain or heartburn sensation. He denies missing any of his medications. He shows normal sinus rhythm with minimal ST elevation inferiorly with T-wave inversion improved from previous. Troponin noted to be elevated at 8 however repeat troponins not drawn and likely on the downtrend from prior myocardial infarction. Echocardiogram had been performed last hospitalization however not transferred over from medical record. 12/01/2021 Patient examined this morning at the bedside. He denies chest pain or pressure. He reports improvement in his shortness of breath. He denies shortness of breath at the time of my examination was sitting on the side of the bed. He does report having shortness of breath when he is laying flat in bed. Patient remains on IV Lasix 40 mg every 12 hours. BUN 27. Creatinine 1.46. Vital signs are stable. Blood pressure 114/68. 12/02/2021 Patient examined this morning at the bedside. Patient denies chest pain or pressure. He continues to report improvement in his SOB. He states he is able to lay flat in bed with less difficulty in breathing. He reports improvement in his lower extremity edema. He remains on IV lasix. Creatinine today is 1.48. Blood pressure 111/74. Fluid balance over the last 24 hours is -1520 mL. Echocardiogram completed revealing ejection fraction 40-45%, severe LVH, inferior basal hypokinesis, and mild TR. 12/03/2021 Patient examined this morning at the bedside. Patient denies chest pain or pressure. Currently denies SOB. He remains on IV lasix. He states he is able to lay flat in bed today without SOB. Blood pressure 94/52. Heart rate is in the 80s. PHYSICAL EXAMINATION Vital signs reviewed. CONSTITUTIONAL: No apparent distress. HEENT: Head is normocephalic. Pupils are equal, round. Sclerae anicteric. Mucous membranes of the mouth are moist. No JVD. No carotid bruit. CHEST EXAMINATION: Lungs diminished bilaterally, No chest wall tenderness is noted on palpation or with deep breathing. HEART EXAMINATION: Regular rate and rhythm. S1, S2 heard. No murmurs, gallops or rub. ABDOMEN: Soft, nontender. Positive bowel sounds. EXTREMITIES: 2+ peripheral pulses, 1+ lower extremity edema and no calf tenderness. NEUROLOGIC EXAMINATION: Patient is awake, alert and oriented x3. ASSESSMENT 1. Acute on chronic heart failure with reduced ejection fraction, ejection fraction 40-45% 2. Coronary artery disease status post recent STEMI with residual circumflex disease 3. Hypertension 4. Diabetes mellitus type 2 5. Dyspnea also possibility of related to Brillinta 6. Chronic kidney disease PLAN Continue current cardiac medications Continue IV Lasix Daily weights Accurate I&O Monitor kidney function Possible repeat cardiac cath with PCI this afternoon with Dr. Machado Further recommendations pending patient course Nurse practitioner note has been reviewed by physician. Signing provider agrees with the documented findings, assessment, and plan of care. Objective - Vital Signs Vital signs: Vital Signs Temp 97.5 F L 12/03/21 03:52 Pulse 87 12/03/21 03:52 Resp 12 12/03/21 03:52 BP 94/52 12/03/21 03:52 Pulse Ox 98 12/03/21 08:08 Intake & Output 12/02/21 12/03/21 12/03/21 18:59 06:59 18:59 Intake Total 10 240 240 Output Total 775 650 Balance -765 -410 240 Intake: IV 10 Invasive Line 1 10 Oral 240 240 Output: Urine 775 650 Other: Voiding Method Urinal Urinal # Voids 6 # Bowel Movements 1 - Labs CBC & Chem 7: 12/03/21 07:20 12/03/21 07:20 Labs: Abnormal Lab Results - Last 24 Hours (Table) 12/02/21 12/02/21 12/02/21 Range/Units 09:29 09:29 11:52 Lymphocytes # 0.9 L (1.0-4.8) k/uL Sodium 135 L (137-145) mmol/L BUN 33 H (9-20) mg/dL Creatinine 1.48 H (0.66-1.25) mg/dL Glucose 263 H (74-99) mg/dL POC Glucose (mg/dL) 252 H (75-99) mg/dL 12/02/21 12/02/21 12/03/21 Range/Units 16:21 21:04 05:30 Lymphocytes # (1.0-4.8) k/uL Sodium (137-145) mmol/L BUN (9-20) mg/dL Creatinine (0.66-1.25) mg/dL Glucose (74-99) mg/dL POC Glucose (mg/dL) 255 H 231 H 202 H (75-99) mg/dL 12/03/21 Range/Units 07:20 Lymphocytes # (1.0-4.8) k/uL Sodium 136 L (137-145) mmol/L BUN 39 H (9-20) mg/dL Creatinine 1.58 H (0.66-1.25) mg/dL Glucose 224 H (74-99) mg/dL POC Glucose (mg/dL) (75-99) mg/dL
[2021-12-03 11:43] LABS: Glucose,Whole Blood 282 mg/dL (75-99)
[2021-12-03] MEDS ORDERED: NITROGLYCERIN SL TABS 0.4 MG TAB SUBLINGUAL PRN (12:12)
[2021-12-03] MEDS ORDERED: ASPIRIN 325 MG TAB PO STA (12:12)
[2021-12-03] MEDS ORDERED: ALPRAZolam 0.5 MG TAB PO PRN (12:12)
[2021-12-03] MEDS ORDERED: ALPRAZolam 0.25 MG TAB PO PRN (12:12)
[2021-12-03] MEDS ORDERED: ATORVASTATIN 80 MG TAB PO STA (12:12)
[2021-12-03] MEDS ORDERED: fentaNYL (PF) 50 MCG/ML 2 ML AMP ONE (12:38)
[2021-12-03] MEDS ORDERED: VERAPAMIL 2.5 MG/ML 2 ML AMP ONE (12:39)
[2021-12-03] MEDS ORDERED: LIDOCAINE 1% PF 10 MG/ML (5 ML AMP) SQ ONE (13:18)
[2021-12-03] MEDS ORDERED: fentaNYL (PF) 50 MCG/ML 2 ML AMP IV ONE (13:18)
[2021-12-03] MEDS ORDERED: MIDAZOLAM 2 MG/2 ML VIAL IV ONE (13:19)
[2021-12-03] MEDS ORDERED: SODIUM CHLORIDE 0.9% 1,000 ML IV ONE (13:19)
[2021-12-03] MEDS: HEPARIN SODIUM 1,000 UN/ML (10ML VL) IV ONE ×2 (13:21→13:31)
[2021-12-03] MEDS ORDERED: VERAPAMIL SYRINGE (5 MG/10 ML) INTRAARTER ONE (13:21)
[2021-12-03] MEDS ORDERED: HEPARIN SODIUM 1,000 UN/ML (10ML VL) ONE (13:23)
[2021-12-03] MEDS: NITROGLYCERIN 1000MCG/10ML SYRINGE INTRACORON ONE ×2 (13:37→14:00)
[2021-12-03] MEDS ORDERED: IOPAMIDOL-370 125ML BTL INJ ONE (14:09)
--- NOTE | 2021-12-03 15:50 | P.PN ---
Subjective Patient undergoing cardiac catheterization today. Objective - Vital Signs Vital signs: Vital Signs Temp 97.7 F 12/03/21 08:00 Pulse 86 12/03/21 08:00 Resp 18 12/03/21 13:33 BP 94/64 12/03/21 08:00 Pulse Ox 98 12/03/21 08:08 Intake & Output 12/02/21 12/03/21 12/03/21 18:59 06:59 18:59 Intake Total 10 240 740 Output Total 775 650 Balance -765 -410 740 Intake: IV 10 500 Invasive Line 1 10 Oral 240 240 Output: Urine 775 650 Other: Voiding Method Urinal Urinal # Voids 6 # Bowel Movements 1 - Exam General: [non toxic], [no distress], [appears at stated age] Derm: [warm], [dry] Head: [atraumatic], [normocephalic], [symmetric] Eyes: [EOMI], [no lid lag], [anicteric sclera] Mouth: [no lip lesion], [mucus membranes moist] Cardiovascular: [S1S2 reg], [no murmur], [positive posterior tibial pulse bilateral], Lungs: [Decreased breath sounds bilateral], [no rhonchi, no rales] , [no accessory muscle use] Abdominal: [soft], [ nontender to palpation], [no guarding], [no appreciable organomegaly] Ext: [no gross muscle atrophy], [1+ pitting bilateral lower extremity edema], [no contractures] Neuro: [ CN II-XI grossly intact], [no focal neuro deficits] Psych: [Alert], [oriented], [appropriate affect] - Labs CBC & Chem 7: 12/03/21 07:20 12/03/21 07:20 Labs: Abnormal Lab Results - Last 24 Hours (Table) 12/02/21 12/02/21 12/03/21 Range/Units 16:21 21:04 05:30 Sodium (137-145) mmol/L BUN (9-20) mg/dL Creatinine (0.66-1.25) mg/dL Glucose (74-99) mg/dL POC Glucose (mg/dL) 255 H 231 H 202 H (75-99) mg/dL 12/03/21 12/03/21 Range/Units 07:20 11:37 Sodium 136 L (137-145) mmol/L BUN 39 H (9-20) mg/dL Creatinine 1.58 H (0.66-1.25) mg/dL Glucose 224 H (74-99) mg/dL POC Glucose (mg/dL) 282 H (75-99) mg/dL Assessment and Plan Assessment: Assessment: #Mild CHF exacerbation #Elevated troponin with recent history of STEMI and PCI of the RCA #Acute kidney injury on CKD #Transaminitis #Chronic conditions: hypertension, hyperlipidemia #Diabetes mellitus type 2 hemoglobin A1c 7.5 #Obesity stage III Plan: -Admit to medicine for close monitoring -Aspiration/fall precaution -Continue Lasix 40 mg twice a day -Strict input/output, low-sodium diet, fluid restrict to less than 1.4 L -2-D echocardiogram reviewed showing inferobasal hypokinesis ejection fraction 40-45% -Scheduled for PCI today. -Cardiology on board continue to follow recommendations -We'll resume home medication including insulin hold oral anti-glycemic agents. Hemoglobin A1c 7.5 -DVT prophylaxis heparin 3 times a day
[2021-12-03 16:33] LABS: Glucose,Whole Blood 380 mg/dL (75-99)
[2021-12-03 20:32] VITALS: RESP 12
[2021-12-03] MEDS: FENOFIBRATE 160 MG TAB PO SCH (20:39)
[2021-12-03] MEDS: ATORVASTATIN 80 MG TAB PO SCH (20:39)
[2021-12-03] MEDS: ACETAMINOPHEN TAB 500 MG TAB PO PRN (20:40)
[2021-12-03] MEDS: ZOLPIDEM 5 MG TAB PO PRN (20:41)
[2021-12-03] MEDS: INSULIN DETEMIR (LEVEMIR) 100 UNIT/ML SYR SQ SCH (20:42)
[2021-12-03 21:30] LABS: Glucose,Whole Blood 310 mg/dL (75-99)
--- NOTE | 2021-12-03 22:09 | P.PRCINT ---
Percutaneous Coronary Int. - Percutaneous Coronary Intervention Percutaneous Coronary Intervention: PROCEDURES PERFORMED: Left coronary angiography, PCI mid circumflex with overlapping 3.0 x 18mm and 2.5 x 18mm Xience VICENTE, IVUS INDICATION: Staged PCI, diabetes mellitus type 2, chronic kidney disease HPI: Patient is pleasant 65-year-old male with history of hypertension, diabetes mellitus type 2 who has inferior STEMI and underwent PCI however had additional 80% circumflex disease and therefore was recommended to undergo staged PCI. CONSENT:I have discussed the risks, benefits and alternative therapies for the above-mentioned procedure and for both sedation/analgesia as well as necessary blood product administration, if indicated, as they pertain to this patient. The patient has indicated understanding and acceptance of the risks and procedures discussed. PROCEDURE: After the risks, benefits and alternatives of the above mentioned procedure explained in detail with the patient, informed consent was obtained. Patient was taken to the catheterization lab and prepped and draped in usual fashion. 1% lidocaine was used to anesthetize the right radial artery. A 6- Yakut sheath was placed in the right radial artery using modified Seldinger technique. Right coronary angiography was not performed secondary to contrast threshold. A 5Fr FR5 catheter was advanced into the left ventricle and pressure measurements were obtained. A CLS 3.0 guide catheter was used to engage the left main. A 0.014 BMW wire was advanced into the distal circumflex. The mid circumflex lesion was predilated with a 2.5 x 12 mm balloon. Next a 3.0 x 18 mm Xience VICENTE was placed in the mid circumflex. There was an area of underexpansion and therefore a 3.5 x 12mm NC balloon was used to post dilate the mid portion of the stent. IVUS was performed which showed distal disease as well as distal edge dissection and therefore an additional 2.5 x 18mm Xience VICENTE was placed overlapping the first stent distally. The overlap was post dilated at higher atmospheres. There was still diffuse disease distally with a 50-60% distal circumflex lesion as well as a 90% lesion in the superior branch of OM1 with the lesion appearing similar to prior to PCI and which was felt best treated medically. Repeat IVUS was performed which showed no signifcant dissection with diffuse disease. The wire was pulled and final angiograms were performed. Preintervention there was NEHEMIAS 3 flow and 80% stenosis, postintervention there was NEHEMIAS 3 flow and 0% stenosis. Left coronary angiography was performed with a 5-Yakut JL 3.5 catheter and right coronary angiography was performed with a 5-Yakut JR5 catheter in various views. The right radial sheath was removed and a TR band was placed with hemostasis achieved. The patient tolerated the procedure well. Patient was transported back to the post catheterization holding area in stable condition. Conscious Sedation: Patient was monitored under the direct supervision of vision of myself for conscious sedation using Versed and fentanyl for a total duration of 36 minutes HEMODYNAMICS: Aortic: 84/56 SELECTIVE CORONARY ARTERIOGRAPHY: LEFT MAIN: The left main is a large caliber vessel which bifurcates into the LAD and circumflex. There is no significant stenosis. LEFT ANTERIOR DESCENDING CORONARY ARTERY: LAD is a large caliber vessel which wraps around to the apex. There is diffuse proximal mid LAD 30-50% stenosis. There is a very high diagonal 1 branch which is small to moderate caliber with a 50% proximal stenosis. The mid LAD has diffuse 30-40% stenosis. Diagonal 2 has diffuse 30-40% stenosis. LEFT CIRCUMFLEX CORONARY ARTERY: Left circumflex is a moderate caliber vessel. There is mild disease of the proximal circumflex. Circumflex is moderate caliber and has a proximal and distal 80% stenosis. The distal circumflex is a small caliber vessel with diffuse 50-60% stenosis and the superior OM1 branch has a proximal 90% stenosis. RIGHT CORONARY ARTERY: The right coronary artery was not imaged. FINAL IMPRESSION: 1. CAD as described above including circumflex 80% stenosis, s/p PCI mid circumflex with overlapping 3.0 x 18mm and 2.5 x 18mm Xience VICENTE 2. Mildly elevated left sided filling pressures. PLAN: 1. Aggressive risk factor modification per most recent ACC/AHA guidelines. 2. Continue dual antiplatelets with aspirin and Brillinta for 12 months.
[2021-12-04] MEDS: HEPARIN SODIUM,PORCINE/PF 5,000 UNIT/0.5 ML SYRINGE SQ SCH ×2 (00:18→09:39)
[2021-12-04 05:52] LABS: Glucose,Whole Blood 212 mg/dL (75-99)
[2021-12-04] MEDS: FUROSEMIDE 10 MG/ML 4 ML VIAL IV SCH (06:30)
[2021-12-04] MEDS: INSULIN ASPART (NovoLOG) 100 UNIT/ML VIAL SQ SCH ×2 (06:32→12:30)
[2021-12-04] MEDS: INSULIN DETEMIR (LEVEMIR) 100 UNIT/ML SYR SQ SCH (06:40)
[2021-12-04] MEDS ORDERED: HEPARIN SODIUM,PORCINE 2,500 UNIT in SODIUM CHLORIDE 0.9% 250 ML IRRIGATION PRN (07:00)
[2021-12-04] MEDS ORDERED: HEPARIN SODIUM,PORCINE 10,000 UNIT in SODIUM CHLORIDE 0.9% 1,000 ML IRRIGATION PRN (07:00)
[2021-12-04] MEDS ORDERED: FUROSEMIDE 40 MG TAB PO SCH (09:00)
[2021-12-04] MEDS: TICAGRELOR 90 MG TAB PO SCH (09:48)
[2021-12-04] MEDS: LOSARTAN 25 MG TAB PO SCH (09:48)
[2021-12-04] MEDS: METOPROLOL TARTRATE 25 MG TAB PO SCH (09:48)
[2021-12-04] MEDS: ASPIRIN 81 MG PO SCH (09:48)
--- NOTE | 2021-12-04 10:04 | P.PN ---
Subjective Progress Note Date: 12/04/21 HISTORY OF PRESENTING ILLNESS Patient is pleasant 66-year-old male with history of diabetes mellitus type 2, hypertension, hyperlipidemia, coronary artery disease status post STEMI 11/26/2021 with inferior FL and PCI of RCA with residual OM disease, congestive heart failure, hyperlipidemia. He recently presented 11/26/2021 with symptoms of chest pain and heartburn sensation and was found to have inferior ST elevation. He was hypotensive at the time and placed on pressors and emergency heart catheterization performed with PCI of the RCA. He was noted to have residual OM disease. His pressors were weaned and he was placed on Lopressor 25 twice a day, losartan as well as dual antiplatelets. He was monitored in the hospital and discharged home yesterday. Unfortunately towards end of the day he was noticing increased lower extremity edema and orthopnea and therefore came back to emergency department. He denies any further chest pain or heartburn sensation. He denies missing any of his medications. He shows normal sinus rhythm with minimal ST elevation inferiorly with T-wave inversion improved from previous. Troponin noted to be elevated at 8 however repeat troponins not drawn and likely on the downtrend from prior myocardial infarction. Echocardiogram had been performed last hospitalization however not transferred over from medical record. 12/01/2021 Patient examined this morning at the bedside. He denies chest pain or pressure. He reports improvement in his shortness of breath. He denies shortness of breath at the time of my examination was sitting on the side of the bed. He does report having shortness of breath when he is laying flat in bed. Patient remains on IV Lasix 40 mg every 12 hours. BUN 27. Creatinine 1.46. Vital signs are stable. Blood pressure 114/68. 12/02/2021 Patient examined this morning at the bedside. Patient denies chest pain or pressure. He continues to report improvement in his SOB. He states he is able to lay flat in bed with less difficulty in breathing. He reports improvement in his lower extremity edema. He remains on IV lasix. Creatinine today is 1.48. Blood pressure 111/74. Fluid balance over the last 24 hours is -1520 mL. Echocardiogram completed revealing ejection fraction 40-45%, severe LVH, inferior basal hypokinesis, and mild TR. 12/03/2021 Patient examined this morning at the bedside. Patient denies chest pain or pressure. Currently denies SOB. He remains on IV lasix. He states he is able to lay flat in bed today without SOB. Blood pressure 94/52. Heart rate is in the 80s. 12/04/2021 Patient is status post repeat cardiac catheterization with PCI to the mid circumflex. Patient examined this morning at the bedside. Patient denies chest pain or pressure. He continues to report mild shortness of breath however it is improved since admission. He remains on IV Lasix. Vital signs are stable. PHYSICAL EXAMINATION Vital signs reviewed. CONSTITUTIONAL: No apparent distress. HEENT: Head is normocephalic. Pupils are equal, round. Sclerae anicteric. Mucous membranes of the mouth are moist. No JVD. No carotid bruit. CHEST EXAMINATION: Lungs diminished bilaterally, No chest wall tenderness is noted on palpation or with deep breathing. HEART EXAMINATION: Regular rate and rhythm. S1, S2 heard. No murmurs, gallops or rub. ABDOMEN: Soft, nontender. Positive bowel sounds. EXTREMITIES: 2+ peripheral pulses, 1+ lower extremity edema and no calf tenderness. NEUROLOGIC EXAMINATION: Patient is awake, alert and oriented x3. ASSESSMENT 1. Acute on chronic heart failure with reduced ejection fraction, ejection fraction 40-45% 2. Coronary artery disease status post recent STEMI with residual circumflex disease 3. Hypertension 4. Diabetes mellitus type 2 5. Dyspnea also possibility of related to Brillinta 6. Chronic kidney disease PLAN Continue current cardiac medications Discontinue IV Lasix. Begin oral Lasix 40 mg daily Patient may be discharged home today and follow up on an outpatient basis with Dr. Machado If patient continues to have shortness of breath at his follow-up appointment, will consider discontinuing Brilinta and switching to a different antiplatelet agent Further recommendations pending patient course Nurse practitioner note has been reviewed by physician. Signing provider agrees with the documented findings, assessment, and plan of care. Objective - Vital Signs Vital signs: Vital Signs Temp 97.8 F 12/04/21 04:00 Pulse 81 12/04/21 04:00 Resp 12 12/04/21 04:00 BP 98/60 12/04/21 04:00 Pulse Ox 95 12/04/21 09:32 Intake & Output 12/03/21 12/04/21 12/04/21 18:59 06:59 18:59 Intake Total 980 237 480 Output Total 2650 Balance 980 -7003 480 Weight 139.9 kg Intake: IV 500 Oral 480 480 Blood Product 237 Output: Urine 2650 Other: Voiding Method Urinal - Labs CBC & Chem 7: 12/03/21 07:20 12/03/21 07:20 Labs: Abnormal Lab Results - Last 24 Hours (Table) 12/03/21 12/03/21 12/03/21 Range/Units 11:37 16:22 21:11 POC Glucose (mg/dL) 282 H 380 H 310 H (75-99) mg/dL 12/04/21 Range/Units 05:43 POC Glucose (mg/dL) 212 H (75-99) mg/dL
--- NOTE | 2021-12-04 11:02 | P.DS ---
Providers Date of admission: 12/01/21 12:02 Attending physician: Tobin Estrada MD Consults: 11/30/21 06:32 Consult Physician Routine Consulting Provider: Smith Ross Consult Reason/Comments: CHF exacerbation Do you want consulting provider notified?: Yes Primary care physician: Jessica Valdez DO Hospital Course: Patient is a 65-year-old male with a PMH of type II DM, hypertension, hyperlipidemia, chronic kidney disease who had presented to the emergency room on 11/26 with complaints of chest discomfort, nausea, and diaphoresis. In the emergency room, EKG revealed ST elevations in the inferior leads. Code STEMI was activated and the patient was taken to the [facility] where a cardiac catheterization had revealed 100% proximal RCA stenosis, 60-70% mid RCA stenosis, 80% OM1 stenosis. A successful PCI to the proximal RCA was performed. He was hydrated overnight and his acute kidney injury improved. The case was discussed with Dr. Machado who cleared the patient for discharge and a planned PCI in the outpatient setting. Patient was advised to continue ASA 81 mg PO QD, Brilinta 90 mg PO BID, Lipitor 80 mg PO QHS, Metoprolol 25 mg PO BID and Losartan 25 mg PO QD. Patient reports once he got home he was generally doing well while exerting and sitting. When he went to lay down to sleep he reports that he was dozing off and feeling immensely short of breath. He also reports some lower extremity edema. He denies any headache, nausea or vomiting, fever or chills, cough, chest pain, palpitations, changes in urination or bowel habits. No changes in appetite or weight. He denies any dizziness, numbness/weakness/tingling of the extremities. In the ED, his vital signs were stable. Chest x-ray was negative. CBC was unremarkable. CMP showed sodium of 136, BUN of 22, creatinine of 1.42, glucose of 136, AST of 78 and ALT of 54. Troponin was 8.01. BNP was 1320. Patient was admitted for CHF exacerbation, elevated troponin and cardiology evaluation. Patient was evaluated by cardiology. Cardiac catheterization. Coronary artery disease showed circumflex disease 80% stenosis, status post PCI midcircumflex. Patient does have mildly elevated left sided filling pressures. Patient is asked to continue with dual antiplatelet therapy with aspirin preventively 12 months. Continue with aggressive risk factor modification for more recent ACC/AHA guidelines. Patient Condition at Discharge: Fair Plan - Discharge Summary Discharge Rx Participant: No New Discharge Prescriptions: New Atorvastatin [Lipitor] 80 mg PO HS 30 Days #30 tab Furosemide [Lasix] 40 mg PO DAILY 30 Days #30 tab Continue Dulaglutide [Trulicity] 3 mg SQ MO Fenofibrate,Micronized 200 mg PO HS Empagliflozin [Jardiance] 10 mg PO DAILY Nitroglycerin Sl Tabs [Nitrostat] 0.4 mg SUBLINGUAL Q5M PRN #14 tab PRN Reason: Chest Pain Insulin Lispro Protamin/Lispro [humaLOG Mix 50-50 Kwikpen] 34 units SQ AC-BID metFORMIN HCL ER [Glucophage XR] 500 mg PO BID Ticagrelor [Brilinta] 90 mg PO BID #60 tab Losartan [Cozaar] 25 mg PO DAILY #30 tab Metoprolol Tartrate [Lopressor] 25 mg PO BID #60 tab Aspirin EC [Ecotrin Low Dose] 81 mg PO DAILY #30 tab Discontinued Pioglitazone [Actos] 30 mg PO DAILY Atorvastatin [Lipitor] 80 mg PO HS Discharge Medication List Dulaglutide [Trulicity] 3 mg SQ MO 11/26/21 [History] Empagliflozin [Jardiance] 10 mg PO DAILY 11/26/21 [History] Fenofibrate,Micronized 200 mg PO HS 11/26/21 [History] Insulin Lispro Protamin/Lispro [humaLOG Mix 50-50 Kwikpen] 34 units SQ AC-BID 11/26/21 [History] metFORMIN HCL ER [Glucophage XR] 500 mg PO BID 11/26/21 [History] Aspirin EC [Ecotrin Low Dose] 81 mg PO DAILY #30 tab 11/29/21 [Rx] Losartan [Cozaar] 25 mg PO DAILY #30 tab 11/29/21 [Rx] Metoprolol Tartrate [Lopressor] 25 mg PO BID #60 tab 11/29/21 [Rx] Nitroglycerin Sl Tabs [Nitrostat] 0.4 mg SUBLINGUAL Q5M PRN #14 tab 11/29/21 [Rx] Ticagrelor [Brilinta] 90 mg PO BID #60 tab 11/29/21 [Rx] Atorvastatin [Lipitor] 80 mg PO HS 30 Days #30 tab 12/04/21 [Rx] Furosemide [Lasix] 40 mg PO DAILY 30 Days #30 tab 12/04/21 [Rx] Follow up Appointment(s)/Referral(s): Jessica Valdez DO [Primary Care Provider] - 1-2 days Keny Machado DO [STAFF PHYSICIAN] - 1 Week Discharge Disposition: HOME SELF-CARE
[2021-12-04 11:36] LABS: Glucose,Whole Blood 236 mg/dL (75-99)
[2021-12-04 12:46] VITALS: BP 95/65; PULSE 79; TEMP 98
== END 2021-12-04 14:57 | disposition home or self-care (01) | DRG 246 ==
LOC: EC 01:33 → SUPCPDRO 01:33 → 3SCARD 06:36 → INTOOBSV 06:36 → OBSVTOIN 12-01 12:02
PROVIDERS: ADMIT Internal Medicine; ATTEND Internal Medicine
PROC: 3E033XZ Introduction of Vasopressor into Peripheral Vein, Percutaneous Approach (ICD-10-PCS; 2021-11-30)
PROC: 4A023N7 Measurement of Cardiac Sampling and Pressure, Left Heart, Percutaneous Approach (ICD-10-PCS; 2021-12-03)
PROC: B2111ZZ Fluoroscopy of Multiple Coronary Arteries using Low Osmolar Contrast (ICD-10-PCS; 2021-12-03)
PROC: 027035Z Dilation of Coronary Artery, One Artery with Two Drug-eluting Intraluminal Devices, Percutaneous Approach (ICD-10-PCS; principal; 2021-12-03 15:35)
PROC: B240ZZ3 Ultrasonography of Single Coronary Artery, Intravascular (ICD-10-PCS; 2021-12-03 15:35)
DX: I13.0 Hypertensive heart and chronic kidney disease with heart failure and stage 1 through stage 4 chronic kidney disease, or unspecified chronic kidney disease (principal); I21.19 ST elevation (STEMI) myocardial infarction involving other coronary artery of inferior wall; I50.23 Acute on chronic systolic (congestive) heart failure; Z68.41 Body mass index [BMI] 40.0-44.9, adult; N17.9 Acute kidney failure, unspecified; E78.5 Hyperlipidemia, unspecified; E66.9 Obesity, unspecified; I25.10 Atherosclerotic heart disease of native coronary artery without angina pectoris; N18.30 Chronic kidney disease, stage 3 unspecified; E11.22 Type 2 diabetes mellitus with diabetic chronic kidney disease; Z95.1 Presence of aortocoronary bypass graft; Z95.5 Presence of coronary angioplasty implant and graft; Z87.891 Personal history of nicotine dependence; Z87.442 Personal history of urinary calculi; Z98.890 Other specified postprocedural states; Z79.899 Other long term (current) drug therapy; Z79.02 Long term (current) use of antithrombotics/antiplatelets; Z79.4 Long term (current) use of insulin; Z79.82 Long term (current) use of aspirin; Z79.84 Long term (current) use of oral hypoglycemic drugs; Z82.49 Family history of ischemic heart disease and other diseases of the circulatory system; Z82.3 Family history of stroke; Z81.8 Family history of other mental and behavioral disorders
CPT/HCPCS: 36415; 71046; 80048; 80053; 83036; 83605; 83880; 84484; 85025; 85610; 85730; 92978; 93005; 93306; 93458; 94760; 96374; 96375; 99285

== ENCOUNTER → 2022-02-25 | Outpatient (CLI) | payer MEDICARE ==
[2022-02-25 14:56] LABS: ALT 42 U/L (10-49); AST 33 U/L (14-35); Chol/HDL Ratio 4.13 Ratio; LDL Cholesterol,Calculated 38.5 mg/dL (0.0-131.0)
== END | disposition home or self-care (01) ==
LOC: LABWHC1 08:36
PROVIDERS: ATTEND Internal Medicine
DX: Z12.5 Encounter for screening for malignant neoplasm of prostate (principal); E78.2 Mixed hyperlipidemia
CPT/HCPCS: 80061; 84450; 84460; 36415; G0103

== ENCOUNTER → 2023-01-21 | Outpatient (CLI) | payer MEDICARE ==
[2023-01-21 16:29] LABS: ALT 28 U/L (8-49); AST 18 U/L (13-35); Albumin 4.5 d/dL (3.8-4.9); Alkaline Phosphatase 94 U/L (41-126); Blood Urea Nitrogen 26.4 mg/dL (9.0-27.0); Calcium 9.5 mg/dL (8.7-10.3); Carbon Dioxide 25.1 mmol/L (21.6-31.8); Chloride 100 mmol/L (96-109); Chol/HDL Ratio 4.32 Ratio; Globulin 2.5 d/dL (1.6-3.3); Glucose 208 mg/dL (70-110); LDL Cholesterol,Calculated 35.5 mg/dL (0.0-131.0); Potassium 4.8 mmol/L (3.5-5.5); Sodium 140 mmol/L (135-145); Total Bilirubin 0.8 mg/dL (0.3-1.2)
[2023-01-21 22:19] LABS: Microalbumin Creatinine Ratio <16 mg/g Cr (0-30)
== END | disposition home or self-care (01) ==
LOC: LABWHC1 09:49
PROVIDERS: ATTEND Internal Medicine Endocrinology, Diabetes & Metabolism
DX: E11.65 Type 2 diabetes mellitus with hyperglycemia (principal)
CPT/HCPCS: 36415; 80053; 80061; 82043; 82570; 83036

== ENCOUNTER → 2023-09-10 | Outpatient (CLI) | payer MEDICARE ==
[2023-09-10 10:46] LABS: Basophils # (A) 0.04 X 10*3/uL (0.00-0.10); Basophils % (A) 0.8 %; Eosinophils # (A) 0.15 X 10*3/uL (0.04-0.35); Eosinophils % (A) 2.9 %; HCT 53.1 % (37.2-50.0); HGB 17.4 g/dL (12.0-17.0); Lymphocytes # (A) 1.47 X 10*3/uL (0.90-5.00); MCHC 32.8 g/dL (32.0-37.0); MCV 85.4 FL (80.0-97.0); Mean Platelet Volume 11.8 FL (9.5-12.2); Monocytes # (A) 0.64 X 10*3/uL (0.20-1.00); Monocytes % (A) 12.2 %; NRBC Per 100 WBC 0 X 10*3/uL (0.00-0.01); Neutrophils # (A) 2.91 X 10*3/uL (1.80-7.70); Neutrophils % (A) 55.3 %; Platelet Count 154 X 10*3/uL (140-440); RBC 6.22 X 10*6/uL (4.10-5.60); RDW 15.8 % (11.5-14.5); WBC 5.25 X 10*3/uL (4.50-10.00)
[2023-09-10 11:27] LABS: ALT 26 U/L (8-49); AST 18 U/L (13-35); Albumin 4.1 g/dL (3.8-4.9); Albumin/Globulin Ratio 1.78 Ratio (1.60-3.17); Alkaline Phosphatase 86 U/L (41-126); BUN/Creat Ratio 14.09 Ratio (12.00-20.00); Blood Urea Nitrogen 15.5 mg/dL (9.0-27.0); Calcium 9.1 mg/dL (8.7-10.3); Carbon Dioxide 23.5 mmol/L (21.6-31.8); Chloride 106 mmol/L (96-109); Globulin 2.3 g/dL (1.6-3.3); Glucose 120 mg/dL (70-110); Potassium 3.9 mmol/L (3.5-5.5); Sodium 141 mmol/L (135-145); Total Bilirubin 0.8 mg/dL (0.3-1.2); Total Protein 6.4 g/dL (6.2-8.2)
== END | disposition home or self-care (01) ==
LOC: LABWHC1 07:07
PROVIDERS: ATTEND Internal Medicine
DX: I10 Essential (primary) hypertension (principal); E55.9 Vitamin D deficiency, unspecified
CPT/HCPCS: 36415; 80053; 82306; 84443; 85025

== ENCOUNTER 2023-12-16 10:21 | Observation (INO) | payer MEDICARE ==
--- NOTE | 2023-12-16 10:51 | ED ---
General Adult HPI - General Chief complaint: Chest Pain Stated complaint: Abn Labs Time Seen by Provider: 12/16/23 10:28 Source: patient Mode of arrival: ambulatory Limitations: no limitations - History of Present Illness Initial comments: Dictation was produced using [employer] dictation software. please excuse any grammatical, word or spelling errors. Chief Complaint: 68-year-old male past medical history of coronary artery disease presents to the ER for chest pain History of Present Illness: Patient 68-year-old male who presents emergency department for chest pain. Patient was at his sr. consultant office today. He made the appointment for his sr. consultant yesterday. He has history coronary artery disease stents that was placed years ago. Patient has been having chest pain. States that the pain is dull and sharp in nature. Nonradiating not associate diaphoresis. He went to see his sr. consultant had EKG performed and was instructed to come to the emergency department for further care. Patient denies any pain at the bedside. The ROS documented in this emergency department record has been reviewed and confirmed by me. Those systems with pertinent positive or negative responses have been documented in the HPI. All other systems are other negative and/or noncontributory. - Related Data Home Medications Medication Instructions Recorded Confirmed Insulin Lispro Protamin/Lispro 50 units SQ AC-BID 11/26/21 12/16/23 [humaLOG MIX 50-50 Kwikpen] metFORMIN HCL ER [Glucophage XR] 500 mg PO BID 11/26/21 12/16/23 Atorvastatin [Lipitor] 40 mg PO HS 12/05/21 12/16/23 Aspirin 81 mg PO DAILY 04/28/23 12/16/23 Cholecalciferol [Vitamin D3 (25 25 mcg PO HS 04/28/23 12/16/23 Mcg = 1000 Iu)] Docusate [Colace] 100 mg PO HS 04/28/23 12/16/23 Empagliflozin [Jardiance] 25 mg PO DAILY 12/16/23 12/16/23 Furosemide [Lasix] 20 mg PO DAILY 12/16/23 12/16/23 Tirzepatide [Mounjaro] 5 mg SQ MO 12/16/23 12/16/23 Previous Rx's Medication Instructions Recorded Losartan [Cozaar] 25 mg PO DAILY #30 tab 11/29/21 Temazepam [Restoril] 15 mg PO HS PRN #15 cap 12/07/21 Allergies Allergy/AdvReac Type Severity Reaction Status Date / Time ticagrelor [From Brilinta] AdvReac Dyspnea Verified 12/16/23 11:50 Review of Systems ROS Statement: Those systems with pertinent positive or pertinent negative responses have been documented in the HPI. ROS Other: All systems not noted in ROS Statement are negative. Past Medical History Past Medical History: Diabetes Mellitus, Hyperlipidemia, Hypertension, Myocardial Infarction ([place]) Additional Past Medical History / Comment(s): IDDM type II, pt thinks possible neuropathy bilateral feet, CKD, kidney stones with surgery to remove Last Myocardial Infarction Date:: 11/26/2021 History of Any Multi-Drug Resistant Organisms: None Reported Past Surgical History: Heart Catheterization With Stent, Orthopedic Surgery, Tonsillectomy Additional Past Surgical History / Comment(s): kidney stone surgery x2, hemrrhoid surgery, right elbow surgery Past Anesthesia/Blood Transfusion Reactions: No Reported Reaction Date of Last Stent Placement:: 11/26/2021 Past Psychological History: No Psychological Hx Reported Smoking Status: Former smoker Past Alcohol Use History: None Reported Past Drug Use History: None Reported - Past Family History Father Family Medical History: CVA/TIA, Dementia Additional Family Medical History / Comment(s): passed way at 63 Mother Family Medical History: Congestive Heart Failure (CHF) Additional Family Medical History / Comment(s): at 96 from covid and chf General Exam - General Exam Comments Initial Comments: PHYSICAL EXAM: General Impression: Alert and oriented x3, not in acute distress HEENT: Normocephalic atraumatic, extra-ocular movements intact, pupils equal and reactive to light bilaterally, mucous membranes moist. Cardiovascular: Heart regular rate and rhythm Chest: Able to complete full sentences, no retractions, no tachypnea Abdomen: abdomen soft, non-tender, non-distended, no organomegaly Musculoskeletal: Pulses present and equal in all extremities, no peripheral edema Motor: no focal deficits noted Neurological: CN II-XII grossly intact, no focal motor or sensory deficits noted Skin: Intact with no visualized rashes Psych: Normal affect and mood Limitations: no limitations Course Vital Signs 12/16/23 12/16/23 10:23 10:54 Temperature 98.1 F Pulse Rate 78 Pulse Rate [ 78 Bilateral Search Director ] Respiratory 18 Rate Blood Pressure 138/83 O2 Sat by Pulse 96 Oximetry EKG Findings - EKG Comments: EKG Findings:: My EKG interpretation: Ventricular rate 70, sinus rhythm,. 183, cures 103, QTc 420. No ID prolongation, no QTC prolongation, no ST or T-wave changes noted. Overall, this EKG is unremarkable Medical Decision Making - Medical Decision Making Was pt. sent in by a medical professional or institution (, F[facility]Z, DIRECTOR CONTENT MARKETING, urgent care, hospital, or skilled nursing...) When possible be specific @ -From sr. consultant office Did you speak to anyone other than the patient for history (EMS, parent, family, police, friend...)? What history was obtained from this source @ -No Did you review nursing and triage notes (agree or disagree)? Why? @ -I reviewed and agree with nursing and triage notes Were old charts reviewed (outside hosp., previous admission, EMS record, old EKG, old radiological studies, urgent care reports/EKG's, skilled nursing records)? Report findings @ -No old charts were reviewed Differential Diagnosis (chest pain, altered mental status, abdominal pain women, abdominal pain men, vaginal bleeding, musculoskeletal, weakness, fever, dyspnea, syncope, headache, dizziness, GI bleed, back pain, seizure, CVA, palpatations, mental health)? @ -Differential Chest Pain: Stable Angina, Unstable Angina, STEMI, NSTEMI Aortic Dissection, Pneumothorax, Musculoskeletal, Esophageal Spasm GERD, Cholecystitis, Pancreatitis, Zoster, this is not meant to be an all-inclusive list. EKG interpreted by me (3pts min.). @ -See above X-rays interpreted by me (1pt min.). @ -Chest x-ray is nonacute CT interpreted by me (1pt min.). @ -None done U/S interpreted by me (1pt. min.). @ -None done What testing was considered but not performed or refused? (CT, X-rays, U/S, labs)? Why? @ -None What meds were considered but not given or refused? Why? @ -None Did you discuss the management of the patient with other professionals (professionals i.e. FEROZ Roca, DIRECTOR [employer] MARKETING, lab, RT, psych nurse, social insurance specialist, director epidemiology, teacher, policy officer, manager case)? Give summary @ -Case discussed with hospitalist for admission Was smoking cessation discussed for >3mins.? @ -No Was critical care preformed (if so, how long)? @ -No Were there social determinants of health that impacted care today? How? (Homelessness, low income, unemployed, alcoholism, drug addiction, transp ortation, low edu. Level, literacy, decrease access to med. care, penitentiary, rehab)? @ -No Was there de-escalation of care discussed even if they declined (Discuss DNR or withdrawal of care, Hospice)? DNR status @ -No What co-morbidities impacted this encounter? (DM, HTN, Smoking, COPD, CAD, Cancer, CVA, ARF, Chemo, Hep., AIDS, mental health diagnosis, sleep apnea, morbid obesity)? @ -None Was patient admitted / discharged? Hospital course, mention meds given and route, prescriptions, significant lab abnormalities, going to OR and other pertinent info. @ -68-year-old male presents to the emergency department for chest pain. He was directed to the emergency department from sr. consultant office. Vital signs upon arrival are within acceptable limits. Laboratory evaluation obtained. Labs are within acceptable limits. Troponin is negative. Patient given aspirin will be admitted to observation for further care. Undiagnosed new problem with uncertain prognosis? @ -No Drug Therapy requiring intensive monitoring for toxicity (Heparin, Nitro, Insulin, Cardizem)? @ -No Were any procedures done? @ -No Diagnosis/symptom? Acute, or Chronic, or Acute on Chronic? Uncomplicated (without systemic symptoms) or Complicated (systemic symptoms)? @ -Chest pain Side effects of treatment? @ -No Exacerbation, Progression, or Severe Exacerbation? @ -No Poses a threat to life or bodily function? How? (Chest pain, [place], [place], pneumonia, PE, COPD, DKA, ARF, appy, cholecystitis, CVA, Diverticulitis, Homicidal, Suicidal, threat to staff... and all critical care pts) @ -yes - Lab Data Result diagrams: 12/16/23 10:51 12/16/23 10:51 Lab Results 12/16/23 12/16/23 12/16/23 Range/Units 10:51 10:51 10:51 WBC 6.2 (3.8-10.6) k/uL RBC 6.24 H (4.30-5.90) m/uL Hgb 18.0 H (13.0-17.5) gm/dL Hct 54.0 H (39.0-53.0) % MCV 86.6 (80.0-100.0) fL MCH 28.8 (25.0-35.0) pg MCHC 33.3 (31.0-37.0) g/dL RDW 14.7 (11.5-15.5) % Plt Count 174 (150-450) k/uL MPV 9.1 Neutrophils % 60 % Lymphocytes % 23 % Monocytes % 10 % Eosinophils % 3 % Basophils % 1 % Neutrophils # 3.7 (1.3-7.7) k/uL Lymphocytes # 1.5 (1.0-4.8) k/uL Monocytes # 0.6 (0-1.0) k/uL Eosinophils # 0.2 (0-0.7) k/uL Basophils # 0.0 (0-0.2) k/uL PT 10.7 (10.0-12.5) sec INR 1.0 (<1.2) APTT 23.3 (22.0-30.0) sec Sodium 138 (137-145) mmol/L Potassium 4.4 (3.5-5.1) mmol/L Chloride 105 (98-107) mmol/L Carbon Dioxide 23 (22-30) mmol/L Anion Gap 10 mmol/L BUN 22 H (9-20) mg/dL Creatinine 1.19 (0.66-1.25) mg/dL Est GFR (CKD-EPI)AfAm 72 (>60 ml/min/1.73 sqM) Est GFR (CKD-EPI)NonAf 63 (>60 ml/min/1.73 sqM) Glucose 188 H (74-99) mg/dL Calcium 9.1 (8.4-10.2) mg/dL Magnesium 1.9 (1.6-2.3) mg/dL Total Bilirubin 1.0 (0.2-1.3) mg/dL AST 26 (17-59) U/L ALT 28 (4-49) U/L Alkaline Phosphatase 81 (38-126) U/L Troponin I (0.000-0.034) ng/mL Total Protein 6.8 (6.3-8.2) g/dL Albumin 4.2 (3.5-5.0) g/dL 12/16/23 Range/Units 10:51 WBC (3.8-10.6) k/uL RBC (4.30-5.90) m/uL Hgb (13.0-17.5) gm/dL Hct (39.0-53.0) % MCV (80.0-100.0) fL MCH (25.0-35.0) pg MCHC (31.0-37.0) g/dL RDW (11.5-15.5) % Plt Count (150-450) k/uL MPV Neutrophils % % Lymphocytes % % Monocytes % % Eosinophils % % Basophils % % Neutrophils # (1.3-7.7) k/uL Lymphocytes # (1.0-4.8) k/uL Monocytes # (0-1.0) k/uL Eosinophils # (0-0.7) k/uL Basophils # (0-0.2) k/uL PT (10.0-12.5) sec INR (<1.2) APTT (22.0-30.0) sec Sodium (137-145) mmol/L Potassium (3.5-5.1) mmol/L Chloride (98-107) mmol/L Carbon Dioxide (22-30) mmol/L Anion Gap mmol/L BUN (9-20) mg/dL Creatinine (0.66-1.25) mg/dL Est GFR (CKD-EPI)AfAm (>60 ml/min/1.73 sqM) Est GFR (CKD-EPI)NonAf (>60 ml/min/1.73 sqM) Glucose (74-99) mg/dL Calcium (8.4-10.2) mg/dL Magnesium (1.6-2.3) mg/dL Total Bilirubin (0.2-1.3) mg/dL AST (17-59) U/L ALT (4-49) U/L Alkaline Phosphatase (38-126) U/L Troponin I <0.012 (0.000-0.034) ng/mL Total Protein (6.3-8.2) g/dL Albumin (3.5-5.0) g/dL Disposition Clinical Impression: Chest pain Disposition: ADMITTED IP TO THIS [facility] Condition: Fair Referrals: Cristobal Whitaker DO [Primary Care Provider] - 1-2 days Decision Time: 13:38
[2023-12-16 11:27] LABS: ALT 28 U/L (4-49); AST 26 U/L (17-59); African American GFR (CKD) 72 (>60 ml/min/1.73 sqM); Albumin 4.2 g/dL (3.5-5.0); Alkaline Phosphatase 81 U/L (38-126); Anion Gap 10 mmol/L; Blood Urea Nitrogen 22 mg/dL (9-20); Calcium 9.1 mg/dL (8.4-10.2); Carbon Dioxide 23 mmol/L (22-30); Chloride 105 mmol/L (98-107); Glucose 188 mg/dL (74-99); Magnesium 1.9 mg/dL (1.6-2.3); Non-African American GFR(CKD) 63 (>60 ml/min/1.73 sqM); Potassium 4.4 mmol/L (3.5-5.1); Sodium 138 mmol/L (137-145); Total Protein 6.8 g/dL (6.3-8.2)
[2023-12-16 11:31] LABS: Basophils % (A) 1 %; Eosinophils # (A) 0.2 k/uL (0-0.7); Eosinophils % (A) 3 %; Lymphocytes # (A) 1.5 k/uL (1.0-4.8); Lymphocytes % (A) 23 %; MCH 28.8 pg (25.0-35.0); MCHC 33.3 g/dL (31.0-37.0); MCV 86.6 fL (80.0-100.0); Mean Platelet Volume 9.1; Monocytes # (A) 0.6 k/uL (0-1.0); Monocytes % (A) 10 %; Neutrophils # (A) 3.7 k/uL (1.3-7.7); Neutrophils % (A) 60 %; Platelet Count 174 k/uL (150-450); RBC 6.24 m/uL (4.30-5.90); RDW 14.7 % (11.5-15.5); WBC 6.2 k/uL (3.8-10.6)
[2023-12-16 11:39] LABS: Partial Thromboplastin Time 23.3 sec (22.0-30.0); Prothrombin Time 10.7 sec (10.0-12.5)
--- NOTE | 2023-12-16 11:45 | XR ---
EXAMINATION TYPE: XR chest 2V DATE OF EXAM: 12/16/2023 COMPARISON: 04/28/2023 INDICATION: Chest pain TECHNIQUE: Frontal and lateral views of the chest are obtained. FINDINGS: The heart size is normal. The pulmonary vasculature is normal. The lungs are clear. IMPRESSION: 1. No acute pulmonary process.
[2023-12-16] MEDS ORDERED: NITROGLYCERIN SL TABS 0.4 MG TAB SUBLINGUAL PRN (13:14)
[2023-12-16] MEDS: ASPIRIN 81 MG PO STA (14:09)
[2023-12-16] MEDS ORDERED: NALOXONE 0.4 MG/ML 1 ML VIAL IVP PRN (17:20)
--- NOTE | 2023-12-16 17:21 | P.HPIM ---
History of Present Illness H&P Date: 12/16/23 Chief Complaint: chest pain 68-year-old male with medical history of CAD status post PCI, hypertension, hyperlipidemia, diabetes presented for evaluation of chest pain. Patient says that for the last few days he has been noticing increased pressure in his chest which felt very similar to the last time he had an IN. Therefore, he had follow-up with his die maker today and after expressing his concerns was advised to come into the hospital for further evaluation. Patient also notes that he has had shallow breathing and shortness of breath when laying flat on his back. He has not noticed any weight gain. He has not noticed any limitations due to dyspnea or angina of his daily activities. He denies fevers, chills, nausea, vomiting. In the emergency room, patient was afebrile, 131/82, heart rate 87, 98% on room air. CBC demonstrated polycythemia to 18. Basic metabolic panel was unremarkable. Troponin was less than 0.012. Then trended less than 0.012. Liver function test were unremarkable. Coags were unremarkable. EKG showed normal sinus rhythm with low voltage QRS throughout, deep Q waves in inferior leads. Chest x-ray demonstrated clear parenchyma bilaterally. All Systems reviewed and pertinent positives and negatives noted in HPI, all other symptoms are negative Gen: in no apparent distress, resting comfortably in bed Eyes: PERRL, no scleral injection or icterus HENT: normocephalic, atraumatic, good hearing acuity, moist mucous membranes Neck: no tracheal deviation, full range of motion Resp: good air exchange, breathing comfortably with no accessory muscle use, no tactile fremitus CVS: good distal perfusion x 4, no pitting edema GI: soft, NTTP, ND, no hepatosplenomegaly : no suprapubic tenderness, no CVAT, cerda catheter not present MSK: no clubbing, no cyanosis, no noted contractures of extremities Skin: no noted rashes, petechiae; temperature of skin is appropriate Neuro: moving all extremities without signs of weakness, CN II-XII intact Psych: cooperative, euthymic mood, insight and judgment intact Labs and imaging as above Assessment/plan: Chest pain History of CAD -admit to obs -cardiology consult -trend trops -asprin, statin -echo -nitro PRN Hypertension Hyperlipidemia Diabetes type 2 -Home medications reviewed and reconciled -Sliding scale insulin, resume home insulin Pt is Full Code Past Medical History Past Medical History: Diabetes Mellitus, Hyperlipidemia, Hypertension, Myocardial Infarction (IN) Additional Past Medical History / Comment(s): IDDM type II, pt thinks possible neuropathy bilateral feet, CKD, kidney stones with surgery to remove Last Myocardial Infarction Date:: 11/26/2021 History of Any Multi-Drug Resistant Organisms: None Reported Past Surgical History: Heart Catheterization With Stent, Orthopedic Surgery, Tonsillectomy Additional Past Surgical History / Comment(s): kidney stone surgery x2, hemrrhoid surgery, right elbow surgery Past Anesthesia/Blood Transfusion Reactions: No Reported Reaction Date of Last Stent Placement:: 11/26/2021 Past Psychological History: No Psychological Hx Reported Smoking Status: Former smoker Past Alcohol Use History: None Reported Past Drug Use History: None Reported - Past Family History Father Family Medical History: CVA/TIA, Dementia Additional Family Medical History / Comment(s): passed way at 63 Mother Family Medical History: Congestive Heart Failure (CHF) Additional Family Medical History / Comment(s): at 96 from covid and chf Medications and Allergies Home Medications Medication Instructions Recorded Confirmed Type Insulin Lispro Protamin/Lispro 50 units SQ AC-BID 11/26/21 12/16/23 History [humaLOG MIX 50-50 Kwikpen] metFORMIN HCL ER [Glucophage XR] 500 mg PO BID 11/26/21 12/16/23 History Losartan [Cozaar] 25 mg PO DAILY #30 tab 11/29/21 12/16/23 Rx Atorvastatin [Lipitor] 40 mg PO HS 12/05/21 12/16/23 History Temazepam [Restoril] 15 mg PO HS PRN #15 cap 12/07/21 12/16/23 Rx Aspirin 81 mg PO DAILY 04/28/23 12/16/23 History Cholecalciferol [Vitamin D3 (25 25 mcg PO HS 04/28/23 12/16/23 History Mcg = 1000 Iu)] Docusate [Colace] 100 mg PO HS 04/28/23 12/16/23 History Empagliflozin [Jardiance] 25 mg PO DAILY 12/16/23 12/16/23 History Furosemide [Lasix] 20 mg PO DAILY 12/16/23 12/16/23 History Tirzepatide [Mounjaro] 5 mg SQ MO 12/16/23 12/16/23 History Allergies Allergy/AdvReac Type Severity Reaction Status Date / Time ticagrelor [From Brilinta] AdvReac Dyspnea Verified 12/16/23 11:50 Physical Exam Osteopathic Statement: *. No significant issues noted on an osteopathic structural exam other than those noted in the History and Physical/Consult. Vitals: Vital Signs Temp Pulse Pulse Resp BP Pulse Ox 12/16/23 16:58 87 18 131/82 98 12/16/23 15:00 87 20 133/69 96 12/16/23 13:58 89 16 120/78 95 12/16/23 12:25 88 16 130/76 99 12/16/23 10:54 78 12/16/23 10:23 98.1 F 78 18 138/83 96 Intake and Output 12/16/23 12/16/23 12/16/23 06:59 14:59 22:59 Other: Weight 133.81 kg Results CBC & Chem 7: 12/16/23 10:51 12/16/23 10:51 Labs: Abnormal Lab Results - Last 24 Hours (Table) 12/16/23 12/16/23 Range/Units 10:51 10:51 RBC 6.24 H (4.30-5.90) m/uL Hgb 18.0 H (13.0-17.5) gm/dL Hct 54.0 H (39.0-53.0) % BUN 22 H (9-20) mg/dL Glucose 188 H (74-99) mg/dL
[2023-12-16 21:17] LABS: Glucose,Whole Blood 173 mg/dL (70-110)
[2023-12-16] MEDS: DOCUSATE 100 MG CAP PO SCH (22:08)
[2023-12-16] MEDS: INSULIN LISPRO PROTAMIN SQ SCH (22:09)
[2023-12-16] MEDS: CHOLECALCIFEROL 25 MCG (1000 IU) TABLET PO SCH (22:09)
[2023-12-16] MEDS: LISPRO SQ SCH (22:09)
[2023-12-16] MEDS: ATORVASTATIN 40 MG TAB PO SCH (22:09)
[2023-12-16] MEDS: [UNRECOGNIZED DRUG - OTHER] SQ SCH (22:09)
[2023-12-17 06:01] LABS: Glucose,Whole Blood 189 mg/dL (70-110)
[2023-12-17 08:00] VITALS: RESP 16
[2023-12-17] MEDS: FUROSEMIDE 20 MG TAB PO SCH (08:10)
[2023-12-17] MEDS: LOSARTAN 25 MG TAB PO SCH (08:10)
[2023-12-17] MEDS: ASPIRIN 81 MG PO SCH (08:10)
[2023-12-17] MEDS ORDERED: CAFFEINE CITRATE 60 MG/3 ML VIAL IV PRN (08:30)
[2023-12-17] MEDS ORDERED: REGADENOSON 0.4 MG/5 ML SYRINGE IV PRN (08:30)
[2023-12-17] MEDS ORDERED: AMINOPHYLLINE 500 MG/20 ML VIAL IV PRN (08:30)
[2023-12-17] MEDS ORDERED: ASPIRIN 325 MG TAB PO SCH (09:00)
[2023-12-17 09:06] LABS: Chol/HDL Ratio 4.75 Ratio
--- NOTE | 2023-12-17 09:43 | P.CRDCN ---
History of Present Illness Consult date: 12/17/23 Consult reason: chest pain History of present illness: History of present illness: This is a 68-year-old male patient of Dr. Machado with past medical history of diabetes mellitus type 2, hypertension, hyperlipidemia, chronic kidney disease, systolic heart failure with EF of 40 to 45%, ST elevated DC 11/26/2021 status post PCI. We have been asked to evaluate the patient for chest pain. Patient states that on Wednesday and Wednesday he had chest dense feeling like he had similar to his DC 2 years ago. He was seen by Dr. Machado in the office yesterday and was sent over to the hospital to be further evaluated. There was concern on his EKG which was a sinus with Q waves inferiorly and some mild change with minimal ST depression in 1 and aVL somewhat worsened prior. Chest pain is happening at rest not necessarily with exertion. EKG sinus rhythm with Q waves in the inferior leads, with no acute ST-T wave changes. Chest x-ray: No acute process Laboratory studies: WBC 6.2, hemoglobin 18. Electrolytes are normal. BUN 22 and creatinine 1.19. Troponin negative x 3. Magnesium 1.9. Triglycerides 291, cholesterol 113, LDL 31, HDL 23. TSH 2.67. Home cardiac medications: Aspirin 81 mg daily, atorvastatin 40 mg at bedtime, Jardiance 25 mg daily, Lasix 20 mg daily, losartan 25 mg daily, also on Mounjaro 5 mg weekly Dobutamine stress echo performed in the office on 02/15/2023 revealed a normal dobutamine stress echo without inducible ischemia. LV EF 50%. Echocardiogram performed 12/01/2021 revealed EF of 40 to 45%. Concentric left ventricular hypertrophy. Cardiac catheterization 11/26/2021 in the setting of inferior ST elevated DC revealed 100% proximal RCA stenosis, mid RCA 60 to 70%, LAD 30 to 50%, OM1 80% stenosis. Patient underwent successful stenting of the RCA with VICENTE PCI 11/30/2021 of the mid circumflex with overlapping VICENTE Review Of Systems: At the time of my exam: CONSTITUTIONAL: Denies fever or chills. HEENT: Denies blurred vision, vision changes, or eye pain. Denies hemoptysis CARDIOVASCULAR: Denies chest pain. Denies orthopnea. Denies PND. Denies palpitations RESPIRATORY: Denies shortness of breath. GASTROINTESTINAL: Denies abdominal pain. Denies nausea or vomiting. HEMATOLOGIC: Denies bleeding disorders. GENITOURINARY: Denies any blood in urine. SKIN: Denies pruitis. Denies rash. Physical examination: Gen: This is a 68-year-old male in no acute distress VS: reviewed HEENT: Head is atraumatic, normocephalic. Pupils equal, round. Sclerae is anicteric. NECK: Supple. No JVD. LUNGS: Clear to auscultation. No wheezes or rhonchi. No intercostal retractions. HEART: Regular rate and rhythm. No murmur. ABDOMEN: Soft No tenderness. EXTREMITIES: No pedal edema. No calf tenderness. NEUROLOGICAL: Patient is awake, alert and oriented x3. Assessment: Atypical chest pain, acute coronary syndrome ruled out with negative troponins History of coronary artery disease status post inferior ST elevated DC as well as PCI of the RCA and mid circumflex Hypertension Hyperlipidemia Diabetes mellitus type 2 Chronic systolic heart failure with EF of 40 to 45% Mild ischemic cardiomyopathy Chronic kidney disease Carotid bruit History of Brilinta causing shortness of breath Plan: Resume patient's home cardiac medications Schedule patient for Lexiscan Cardiolite stress test today Obtain 2-D echocardiogram and Doppler study to assess cardiac structure and function If testing is unremarkable, patient is cleared for discharge and may follow-up with Dr. Machado in 1 week. If Lexiscan stress test is abnormal, we will discuss option of cardiac catheterization with Dr. Machado in the patient. Thank you kindly for this consultation. Nurse practitioner note has been reviewed, I agree with documented findings and plan of care. Patient was seen and examined. Past Medical History Past Medical History: Diabetes Mellitus, Hyperlipidemia, Hypertension, Myocard ial Infarction (DC) Additional Past Medical History / Comment(s): IDDM type II, pt thinks possible neuropathy bilateral feet, CKD, kidney stones with surgery to remove Last Myocardial Infarction Date:: 11/26/2021 History of Any Multi-Drug Resistant Organisms: None Reported Past Surgical History: Heart Catheterization With Stent, Orthopedic Surgery, Tonsillectomy Additional Past Surgical History / Comment(s): kidney stone surgery x2, hemrrhoid surgery, right elbow surgery Past Anesthesia/Blood Transfusion Reactions: No Reported Reaction Date of Last Stent Placement:: 11/26/2021 Past Psychological History: No Psychological Hx Reported Smoking Status: Former smoker Past Alcohol Use History: None Reported Past Drug Use History: None Reported - Past Family History Father Family Medical History: CVA/TIA, Dementia Additional Family Medical History / Comment(s): passed way at 63 Mother Family Medical History: Congestive Heart Failure (CHF) Additional Family Medical History / Comment(s): at 96 from covid and chf Medications and Allergies Home Medications Medication Instructions Recorded Confirmed Type Insulin Lispro Protamin/Lispro 50 units SQ AC-BID 11/26/21 12/16/23 History [humaLOG MIX 50-50 Kwikpen] metFORMIN HCL ER [Glucophage XR] 500 mg PO BID 11/26/21 12/16/23 History Losartan [Cozaar] 25 mg PO DAILY #30 tab 11/29/21 12/16/23 Rx Atorvastatin [Lipitor] 40 mg PO HS 12/05/21 12/16/23 History Temazepam [Restoril] 15 mg PO HS PRN #15 cap 12/07/21 12/16/23 Rx Aspirin 81 mg PO DAILY 04/28/23 12/16/23 History Cholecalciferol [Vitamin D3 (25 25 mcg PO HS 04/28/23 12/16/23 History Mcg = 1000 Iu)] Docusate [Colace] 100 mg PO HS 04/28/23 12/16/23 History Empagliflozin [Jardiance] 25 mg PO DAILY 12/16/23 12/16/23 History Furosemide [Lasix] 20 mg PO DAILY 12/16/23 12/16/23 History Tirzepatide [Mounjaro] 5 mg SQ MO 12/16/23 12/16/23 History Allergies Allergy/AdvReac Type Severity Reaction Status Date / Time ticagrelor [From Brilinta] AdvReac Dyspnea Verified 12/16/23 11:50 Physical Exam Vitals: Vital Signs Temp Pulse Pulse Resp BP BP Pulse Ox 12/17/23 07:00 97.8 F 88 16 135/91 94 L 12/17/23 02:00 97.7 F 87 131/70 95 12/16/23 20:00 97.6 F 74 152/90 95 12/16/23 19:15 80 12/16/23 19:00 77 20 96 12/16/23 18:00 80 20 126/78 98 12/16/23 17:00 88 18 132/76 98 12/16/23 16:58 87 18 131/82 98 12/16/23 15:00 87 20 133/69 96 12/16/23 13:58 89 16 120/78 95 12/16/23 12:25 88 16 130/76 99 12/16/23 10:54 78 12/16/23 10:23 98.1 F 78 18 138/83 96 Intake and Output 12/16/23 12/17/23 12/17/23 22:59 06:59 14:59 Other: Voiding Method Toilet # Voids 1 1 Weight 133.81 kg Results 12/16/23 10:51 12/16/23 10:51 Cardiac Enzymes 12/16/23 12/16/23 12/16/23 Range/Units 10:51 10:51 13:54 AST 26 (17-59) U/L Troponin I <0.012 <0.012 (0.000-0.034) ng/mL 12/16/23 Range/Units 16:47 AST (17-59) U/L Troponin I <0.012 (0.000-0.034) ng/mL Coagulation 12/16/23 Range/Units 10:51 PT 10.7 (10.0-12.5) sec APTT 23.3 (22.0-30.0) sec CBC 12/16/23 Range/Units 10:51 WBC 6.2 (3.8-10.6) k/uL RBC 6.24 H (4.30-5.90) m/uL Hgb 18.0 H (13.0-17.5) gm/dL Hct 54.0 H (39.0-53.0) % Plt Count 174 (150-450) k/uL Comprehensive Metabolic Panel 12/16/23 Range/Units 10:51 Sodium 138 (137-145) mmol/L Potassium 4.4 (3.5-5.1) mmol/L Chloride 105 (98-107) mmol/L Carbon Dioxide 23 (22-30) mmol/L BUN 22 H (9-20) mg/dL Creatinine 1.19 (0.66-1.25) mg/dL Glucose 188 H (74-99) mg/dL Calcium 9.1 (8.4-10.2) mg/dL AST 26 (17-59) U/L ALT 28 (4-49) U/L Alkaline Phosphatase 81 (38-126) U/L Total Protein 6.8 (6.3-8.2) g/dL Albumin 4.2 (3.5-5.0) g/dL Current Medications Generic Name Dose Route Start Last Admin Trade Name Freq PRN Reason Stop Dose Admin Aspirin 81 mg 12/17/23 09:00 12/17/23 08:10 Aspirin 81 Mg PO 81 mg DAILY SHIRLEY Administration Atorvastatin Calcium 40 mg 12/16/23 21:00 12/16/23 22:09 Atorvastatin 40 Mg Tab PO 40 mg HS SHIRLEY Administration Cholecalciferol 25 mcg 12/16/23 21:00 12/16/23 22:09 Cholecalciferol 25 Mcg (1000 Iu) Tablet PO 25 mcg HS SHIRLEY Administration Docusate Sodium 100 mg 12/16/23 21:00 12/16/23 22:08 Docusate 100 Mg Cap PO 100 mg HS SHIRLEY Administration Furosemide 20 mg 12/17/23 09:00 12/17/23 08:10 Furosemide 20 Mg Tab PO 20 mg DAILY SHIRLEY Administration Losartan Potassium 25 mg 12/17/23 09:00 12/17/23 08:10 Losartan 25 Mg Tab PO 25 mg DAILY SHIRLEY Administration Naloxone HCl 0.2 mg 12/16/23 17:20 Naloxone 0.4 Mg/Ml 1 Ml Vial IVP Q2M PRN Opioid Reversal Nitroglycerin 0.4 mg 12/16/23 13:14 Nitroglycerin Sl Tabs 0.4 Mg Tab SUBLINGUAL Q5M PRN Chest Pain Non-Formulary Medication 50 units 12/16/23 17:30 12/17/23 06:32 Insulin Lispro Protamin/Lispro [Humalog Mix 50-50 Kwikpen] SQ Not Given AC-BID SHIRLEY Intake and Output 12/16/23 12/17/23 12/17/23 22:59 06:59 14:59 Other: Voiding Method Toilet # Voids 1 1 Weight 133.81 kg 12/16/23 10:51 12/16/23 10:51
--- NOTE | 2023-12-17 10:02 | CA ---
Transthoracic Echo Report Name: Rio Majano Age: 68 Gender: M : 1955 Exam Date: 12/17/2023 08:18 Exam Location: [place] [facility] Ht (in): 72 Wt (lb): 300 Ordering Physician: Domingo Elizalde MD Attending/Referring Phys: Telecommunications Analyst Shonda Chaidez RDCS Procedure CPT: Indications: Chest Pain Cardiac Hx: Technical Quality: Technically difficult study Contrast 1: Definity Total Dose (mL): 2 Contrast 2: Total Dose (mL): MEASUREMENTS (Male / Female) Normal Values 2D ECHO LV Diastolic Diameter PLAX 5.4 cm 4.2 - 5.9 / 3.9 - 5.3 cm LV Systolic Diameter PLAX 4.3 cm IVS Diastolic Thickness 1.4 cm 0.6 - 1.0 / 0.6 - 0.9 cm LVPW Diastolic Thickness 1.1 cm 0.6 - 1.0 / 0.6 - 0.9 cm LV Relative Wall Thickness 0.5 RV Internal Dim ED PLAX 3.5 cm LVOT Diameter 2.2 cm Aortic Root Diameter 3.6 cm LV Diastolic Volume MOD BP 132.8 cm??? 67 - 155 / 56 - 104 cm??? LV Systolic Volume MOD BP 74.8 cm??? 22 - 58 / 19 - 49 cm??? LV Ejection Fraction MOD BP 43.7 % >= 55 % LV Cardiac Index MOD BP 1532.2 cm???/min???m??? LV Diastolic Volume MOD 4C 130.4 cm??? LV Systolic Volume MOD 4C 68.1 cm??? LV Ejection Fraction MOD 4C 47.8 % LV Cardiac Index MOD 4C 1645.8 cm???/min???m??? LV Diastolic Length 4C 8.3 cm LV Systolic Length 4C 7.4 cm LV Diastolic Volume MOD 2C 134.1 cm??? LV Systolic Volume MOD 2C 77.0 cm??? LV Ejection Fraction MOD 2C 42.6 % LV Cardiac Index MOD 2C 1507.5 cm???/min???m??? LV Diastolic Length 2C 8.2 cm LV Systolic Length 2C 8.1 cm Ascending Aorta Diameter 4.1 cm DOPPLER AV Peak Velocity 111.7 cm/s AV Peak Gradient 5.0 mmHg AV Mean Velocity 83.4 cm/s AV Mean Gradient 3.0 mmHg AV Velocity Time Integral 24.2 cm LVOT Peak Velocity 102.7 cm/s LVOT Peak Gradient 4.2 mmHg LVOT Velocity Time Integral 21.0 cm LVOT Stroke Volume 81.8 cm??? LVOT Stroke Volume Index 32.3 ml/m??? LVOT Cardiac Index 2162.0 cm???/min???m??? AV Area Cont Eq vti 3.4 cm??? AV Area Cont Eq pk 3.6 cm??? Mitral E Point Velocity 59.8 cm/s Mitral A Point Velocity 107.5 cm/s Mitral E to A Ratio 0.6 MV Deceleration Time 106.3 ms MV E' Velocity 3.1 cm/s Mitral E to MV E' Ratio 19.1 PV Peak Velocity 113.0 cm/s PV Peak Gradient 5.1 mmHg FINDINGS Left Ventricle Left ventricular ejection fraction is estimated at 40-45 %. Mildly increased septal wall thickness. Moderately increased left ventricular systolic volume. Moderately decreased left ventricular ejection fraction. Anteroapical septal hypokinesia noted Right Ventricle Mild right ventricular dilatation with normal function. Unable to estimate the right ventricular systolic pressure. Right Atrium Normal right atrial size. Left Atrium Mild left atrial dilatation. Mitral Valve Structurally normal mitral valve. No mitral stenosis, regurgitation or prolapse. Aortic Valve Aortic valve not well visualized. No aortic valve stenosis or regurgitation. Tricuspid Valve Structurally normal tricuspid valve. No tricuspid stenosis, regurgitation or prolapse. Pulmonic Valve Pulmonic valve not well visualized. Pericardium No pericardial effusion. Aorta Aortic annulus normal. Ascending aorta mildly enlarged. CONCLUSIONS Normal LV size with mild global decrease in contractility, anteroapical septal hypokinesia is more obvious. Ejection fractions in the 40 to 45% range. No significant abnormality on the Doppler exam. No pericardial effusion Previewed by: Dr. Chandan Chance MD (Electronically Signed) Final Date: 17 Dec 2023 10:01
--- NOTE | 2023-12-17 12:22 | NM ---
EXAMINATION TYPE: NM stress lexiscan cardiolite DATE OF EXAM: 12/17/2023 COMPARISON: NONE CLINICAL INDICATION: Male, 68 years old with history of chest pain; TECHNIQUE: After the intravenous administration of 11.9 mCi Tc 99m Sestamibi - Cardiolite resting SP ECT images acquired 65 minutes post injection. The patient received 0.4mg Lexiscan, 26.6 mCi Tc 99m Sestamibi - Stress images obtained [address] injection FINDINGS: Review of stress and rest SPECT images demonstrates a large fixed perfusion defect involving the enti re inferior wall. However, some reversibility is demonstrated at the apex of the heart. Gated analysi s shows global hypokinesis with an estimated left ventricular ejection fraction of only 16 %. TID is calculated at 1.03, upper limits of normal. IMPRESSION: 1. Large fixed defect involving the entire inferior wall. Correlate for old infarct especially given that the estimated LVEF is only 16% 2. Exam positive for inducible ischemia at the apex of the heart.
--- NOTE | 2023-12-17 13:18 | CA ---
Lexiscan Nuclear Stress Test Report Name: Rio Majano Exam Date: 12/17/2023 10:24 Exam Location: [facility] Ht (in): 72 Wt (lb): 295 BSA: 2.51 Ordering Phys: Maria De Jesus Flaherty Referring Phys: VIKA, Technologist: SUSHANT,, Age: 68 Gender: M : 1955 Procedure CPT: Indications: Reflex order-Stress test ICD-10 Codes: Patient History: Chest pain, shortness of breath, hypertension, history of ascad. Medications: Meds past 24 hrs: Pretest Chest Pain: STRESS TEST Lexiscan Protocol Exercise Duration (min:sec): 01:[address] Depressions (mm): Angina Score: Zhao Score: Resting HR (bpm): 79 Peak HR (bpm): 114 Resting BP (mmHg): 124 / 81 Peak BP (mmHg): 126 / 94 MPHR: 152 Target HR: 129 % MPHR: 75 METS: 1.0 Total Dose: Peak Dose: Atropine: Double Product: 91190 BP Response: Stress Termination: INFUSION COMPLETE Stress Symptoms: STOMACH ACHE Stress Summary: ECG ANALYSIS Resting ECG: Stress ECG: CONCLUSIONS Baseline EKG revealed normal sinus rhythm without significant ST-T changes isolated PVCs were noted. With Lexiscan administration the heart rate went up from 79-114 bpm. The blood pressure changed from 124/81-180/83. Patient had transient abdominal discomfort. Right-sided. Disease was noted no significant ST segment changes are noted. By EKG criteria this is an unremarkable Lexiscan stress test. The nuclear scan results which are more pertinent will be reported by the radiologist Dr. Chandan Chance MD (Electronically Signed) Final Date: 17 Dec 2023 13:17
--- NOTE | 2023-12-17 13:59 | P.DS ---
Providers Date of admission: 12/16/23 13:15 Expected date of discharge: 12/17/23 Attending physician: Domingo Elizalde MD Consults: 12/16/23 13:14 Consult Physician Urgent Consulting Provider: Keny Machado Consult Reason/Comments: chest pain Do you want consulting provider notified?: Yes Primary care physician: [facility] Course: Chest pain History of CAD Hypertension Hyperlipidemia Diabetes type 2 68-year-old male with medical history of CAD status post PCI, hypertension, hyperlipidemia, diabetes presented for evaluation of chest pain. In the emerge ncy room, patient was afebrile, 131/82, heart rate 87, 98% on room air. CBC demonstrated polycythemia to 18. Basic metabolic panel was unremarkable. Troponin was less than 0.012. Then trended less than 0.012. Liver function test were unremarkable. Coags were unremarkable. EKG showed normal sinus rhythm with low voltage QRS throughout, deep Q waves in inferior leads. Chest x-ray demonstrated clear parenchyma bilaterally. Patient was admitted to observation with cardiology consult. Troponins were negative. Patient underwent nuclear stress test which was negative for reversible ischemia. Patient was subsequently cleared by cardiology and discharged home with cardiology follow-up. I spent 34 minutes coordinating this discharge Gen: in no apparent distress, resting comfortably in bed Eyes: PERRL, no scleral injection or icterus HENT: normocephalic, atraumatic, good hearing acuity, moist mucous membranes Neck: no tracheal deviation, full range of motion Resp: good air exchange, breathing comfortably with no accessory muscle use, no tactile fremitus CVS: good distal perfusion x 4, no pitting edema GI: soft, NTTP, ND, no hepatosplenomegaly : no suprapubic tenderness, no CVAT, cerda catheter not present MSK: no clubbing, no cyanosis, no noted contractures of extremities Skin: no noted rashes, petechiae; temperature of skin is appropriate Neuro: moving all extremities without signs of weakness, CN II-XII intact Psych: cooperative, euthymic mood, insight and judgment intact Patient Condition at Discharge: Good Plan - Discharge Summary Discharge Rx Participant: No New Discharge Prescriptions: Continue Temazepam [Restoril] 15 mg PO HS PRN #15 cap PRN Reason: Insomnia Docusate [Colace] 100 mg PO HS Empagliflozin [Jardiance] 25 mg PO DAILY Tirzepatide [Mounjaro] 5 mg SQ MO Insulin Lispro Protamin/Lispro [humaLOG MIX 50-50 Kwikpen] 50 units SQ AC-BID metFORMIN HCL ER [Glucophage XR] 500 mg PO BID Losartan [Cozaar] 25 mg PO DAILY #30 tab Atorvastatin [Lipitor] 40 mg PO HS Cholecalciferol [Vitamin D3 (25 Mcg = 1000 Iu)] 25 mcg PO HS Aspirin 81 mg PO DAILY Furosemide [Lasix] 20 mg PO DAILY Discharge Medication List Insulin Lispro Protamin/Lispro [humaLOG MIX 50-50 Kwikpen] 50 units SQ AC-BID 11/26/21 [History] metFORMIN HCL ER [Glucophage XR] 500 mg PO BID 11/26/21 [History] Losartan [Cozaar] 25 mg PO DAILY #30 tab 11/29/21 [Rx] Atorvastatin [Lipitor] 40 mg PO HS 12/05/21 [History] Temazepam [Restoril] 15 mg PO HS PRN #15 cap 12/07/21 [Rx] Aspirin 81 mg PO DAILY 04/28/23 [History] Cholecalciferol [Vitamin D3 (25 Mcg = 1000 Iu)] 25 mcg PO HS 04/28/23 [History] Docusate [Colace] 100 mg PO HS 04/28/23 [History] Empagliflozin [Jardiance] 25 mg PO DAILY 12/16/23 [History] Furosemide [Lasix] 20 mg PO DAILY 12/16/23 [History] Tirzepatide [Mounjaro] 5 mg SQ MO 12/16/23 [History] Follow up Appointment(s)/Referral(s): Cristobal Whitaker DO [Primary Care Provider] - 1-2 days Discharge Disposition: HOME SELF-CARE
[2023-12-17 15:57] VITALS: BP 125/76; PULSE 85; TEMP 97.9
== END 2023-12-17 15:35 | disposition home or self-care (01) ==
LOC: EC 10:21 → 6NMEDSUR 13:15
PROVIDERS: ADMIT Internal Medicine; ATTEND Internal Medicine
DX: R07.89 Other chest pain (principal); I13.0 Hypertensive heart and chronic kidney disease with heart failure and stage 1 through stage 4 chronic kidney disease, or unspecified chronic kidney disease; I25.10 Atherosclerotic heart disease of native coronary artery without angina pectoris; I25.2 Old myocardial infarction; I25.5 Ischemic cardiomyopathy; E78.5 Hyperlipidemia, unspecified; E11.9 Type 2 diabetes mellitus without complications; Z79.4 Long term (current) use of insulin; Z87.891 Personal history of nicotine dependence; Z98.61 Coronary angioplasty status; Z87.442 Personal history of urinary calculi; Z82.49 Family history of ischemic heart disease and other diseases of the circulatory system; Z79.899 Other long term (current) drug therapy; Z79.84 Long term (current) use of oral hypoglycemic drugs; Z79.82 Long term (current) use of aspirin; D75.1 Secondary polycythemia
CPT/HCPCS: 99285; 36415; 93005; 93017; 80061; 80053; 84443; 83735; 84484; 85025; 85610; 85730; 83036; 71046; 78452; G0378 ×2; C8929; A9500; Q9957; J2785; 93306